=== PATIENT | female | born 1960 | race Hispanic/Latino ===

== ENCOUNTER 2018-07-29 13:00 | Outpatient (RCR) | payer OTHER ==
[~2018-07-29 13:00] MED LIST: ALPRAZOLAM0.25 M1 PO; ASPIRIN ENTERI325 MG PO; ATORVASTATIN CA20 MG PO; BENTYL10 MG PO; LANTUS100 UNITS/ SQ; LEVOTHYROXINE112 MCG PO; LYRICA75 MG PO; METFORMIN HCL500 MG PO; NEXIUM40 MG PO; ROPINIROLE HC0.25 MG PO; SERTRALINE HCL100 MG PO; TRADJENTA5 MG PO; ULTRAM50 MG PO
== END 2018-08-08 ==
LOC: PT 13:00
PROVIDERS: ATTEND Specialist
DX: M75.92 Shoulder lesion, unspecified, left shoulder (principal); M25.512 Pain in left shoulder; M25.412 Effusion, left shoulder; M54.2 Cervicalgia; M54.12 Radiculopathy, cervical region; M62.81 Muscle weakness (generalized)

== ENCOUNTER 2018-08-01 11:47 | Emergency (ER) | payer OTHER ==
[~2018-08-01] VITALS: Ht 157.5 cm; Wt 76.7 kg
--- OUTSIDE RECORDS SUMMARY | 2018-08-01 11:50 | XMS REPORT | Clinical Summary ---
Author Author [facility] Organization [facility] Address Unknown Phone Unavailable Care Team Providers Care Site Surveyor Name Role Phone Joey Clark MD PCP Allergies Not on File Medications Not on file Active Problems Not on file Social History Date Tobacco Use Types Packs/Day Years Used Never Assessed Sex Assigned at Date Recorded Not on file Industry Job Start Date Occupation Not on file Not on file Not on file Travel End Travel History Travel Start No recent travel history available. Last Filed Vital Signs Not on file Plan of Treatment Health Maintenance Due Date Last Done Comments CERVICAL CANCER SCREENING 1982 BREAST CANCER SCREENING 09/25/2011 COLON CANCER SCREENING 09/25/2011 SHINGLES VACCINES (#1) 09/25/2011 INFLUENZA VACCINE 01/09/2018 Results Not on fileafter 07/31/2017 Insurance Payer Benefit Subscriber ID Type Phone Address Plan / Group [employer] xxxxxxxxx [facility] Advance Directives Patient has advance care planning documents on file. For more information, pura fisher contact: Dima Lopez [address] [place] [phone]
--- OUTSIDE RECORDS SUMMARY | 2018-08-01 11:50 | XMS REPORT ---
Author Author Admin, Halliday Organization [facility] Address Unknown Phone Unavailable Allergies, Adverse Reactions, Alerts Allergy Name Reaction Description Start Date Severity Status Provider No Known Allergies Mason Jauregui DDS Conditions or Problems Problem Name Problem Code Onset Date Status Entry Date Provider Comment Standard Description Annotate No Known Problems Mason Jauregui DDS Medication List Medication Instructions Start Date Stop Date Generic Name NDC Status Provider Patient Instruction TYLENOL WITH CODEINE #3 300-30 MG ORAL TABLET 1 by mouth every 4 hours as needed ACETAMINOPHEN-CODEINE 26963687280 Active Mason Jauregui DDS Active TYLENOL WITH CODEINE #3 300-30 MG ORAL TABLET 1 by mouth every 4 hours as needed ACETAMINOPHEN-CODEINE 74344150398 Active Mason Jauregui DDS Active ALPRAZOLAM 0.5 MG ORAL TABLET ALPRAZOLAM 26799830947 Active Mason Jauregui DDS Active ASPIRIN 325 MG ORAL TBEC (ASPIRIN) 1 by mouth every day ASPIRIN 325 MG ORAL TBEC (ASPIRIN) Active Mason Jauregui DDS Active ATORVASTATIN CALCIUM 20 MG ORAL TABLET ATORVASTATIN CALCIUM 81655948244 Active Mason Jauregui DDS Active FENOFIBRATE 145 MG ORAL TABLET FENOFIBRATE 03780066234 Active Mason Jauregui DDS Active FUROSEMIDE 10 MG/ML ORAL SOLUTION FUROSEMIDE 73418500858 Active Mason Jauregui DDS Active HUMALOG HUMALOG Active Mason Jauregui DDS Active LANTUS 60 UNITS one tablet twice a day LANTUS 60 UNITS Active Mason Jauregui DDS Active LEVOTHYROXINE SODIUM 175 MCG ORAL TABLET LEVOTHYROXINE SODIUM 47851742187 Active Mason Jauregui DDS Active METFORMIN HCL 1000 MG ORAL TABLET METFORMIN HCL 96193490281 Active Mason Jauregui DDS Active METOCLOPRAMIDE HCL 10 MG ORAL TABLET DISINTEGRATING METOCLOPRAMIDE HCL 52775419876 Active Mason Jauregui DDS Active NEXIUM 40 MG ORAL CAPSULE DELAYED RELEASE 1 by mouth daily ESOMEPRAZOLE MAGNESIUM 53841800547 Active Mason Jauregui DDS Active PROAIR HFA AEROSOL SOLUTION ALBUTEROL SULFATE AERS 41626153882 Active Mason Jauregui DDS Active ROPINIROLE HCL 0.25 MG ORAL TABLET ROPINIROLE HCL 50733743285 Active Mason Jauregui DDS Active SERTRALINE HCL 100 MG ORAL TABLET SERTRALINE HCL 82450193530 Active Mason Jauregui DDS Active TRADJENTA 5 MG ORAL TABLET LINAGLIPTIN 56925874558 Active Mason Jauregui DDS Active AZITHROMYCIN 250 MG ORAL TABLET 2 tablets by mouth on day one then one tablet by mouth each day for a total of 5 days AZITHROMYCIN 45283613435 Active Mason Jauregui DDS Active BENZONATATE 100 MG ORAL CAPSULE BENZONATATE 35763999539 Active Mason Jauregui DDS Active PREDNISONE TABS 15MG (PREDNISONE TABS) PREDNISONE TABS 15MG (PREDNISONE TABS) Active Mason Jauregui DDS Active Vital Signs Date Name Value Unit Range Description blood pressure, diastolic 63 mm[Hg] BP richter blood pressure, systolic 126 mm[Hg] BP sys pulse rate E&M 98 /min Heart rate blood pressure, diastolic 65 mm[Hg] BP richter blood pressure, systolic 124 mm[Hg] BP sys pulse rate E&M 89 /min Heart rate blood pressure, diastolic 49 mm[Hg] BP richter blood pressure, systolic 110 mm[Hg] BP sys pulse rate E&M 98 /min Heart rate blood pressure, diastolic 65 mm[Hg] BP richter blood pressure, systolic 120 mm[Hg] BP sys pulse rate E&M 86 /min Heart rate blood pressure, diastolic 66 mm[Hg] BP richter blood pressure, systolic 123 mm[Hg] BP sys pulse rate E&M 98 /min Heart rate blood pressure, diastolic 72 mm[Hg] BP richter blood pressure, systolic 113 mm[Hg] BP sys pulse rate E&M 82 /min Heart rate blood pressure, diastolic 83 mm[Hg] BP richter blood pressure, systolic 115 mm[Hg] BP sys pulse rate E&M 68 /min Heart rate blood pressure, diastolic 68 mm[Hg] BP richter blood pressure, systolic 125 mm[Hg] BP sys pulse rate E&M 96 /min Heart rate
--- OUTSIDE RECORDS SUMMARY | 2018-08-01 11:50 | XMS REPORT | Clinical Summary ---
Author Author [facility] Organization [facility] Address Unknown Phone Unavailable Care Team Providers Care Counter Waitress/Waiter Name Role Phone PCP Unavailable Allergies Comments Active Allergy Reactions Severity Noted Date Iodinated Contrast- Oral Anaphylaxis, Medium 11/28/2006 And Iv Dye Rash Medications End Date Status Medication Sig Dispensed Refills Start Date Active ESOMEPRAZOLE MAGNESIUM Take 40 mg by 0 (NEXIUM OR) mouth 2 times daily. Active aspirin 325 mg tablet Take 325 mg 0 by mouth daily. Active levothyroxine (SYNTHROID) Take 175 mcg 0 175 mcg tablet by mouth daily. Active metFORMIN (GLUCOPHAGE) Take 1,000 mg 0 1,000 mg tablet by mouth 2 times daily (with meals). Active linagliptin (TRADJENTA) 5 Take 5 mg by 0 mg tablet mouth daily. Active insulin glargine (LANTUS) Inject 80 0 100 unit/mL injection Units under the skin at bedtime nightly. Active Insulin Lispro, Human, Inject 24 0 (HUMALOG) 100 unit/mL Units under Crtg the skin before meals. Active atorvastatin (LIPITOR) 20 Take 20 mg by 0 mg tablet mouth at bedtime nightly. Active fenofibrate Take 145 mg 0 nanocrystallized (TRICOR) by mouth 145 mg tablet daily. Active ROPINIRole (REQUIP) 0.25 Take 0.5 mg 0 mg tablet by mouth 2 times daily. Active metoclopramide (REGLAN) Take 10 mg by 0 10 mg tablet mouth 2 times daily. Active furosemide (LASIX) 20 mg Take 20 mg by 0 tablet mouth daily. Active albuterol (PROAIR HFA) 90 Inhale 2 0 mcg/actuation inhaler Puffs by mouth 4 times daily as needed for Wheezing. Active tiotropium (SPIRIVA) 18 Inhale 1 0 mcg inhalation capsule capsule by mouth daily. Active colestipol (COLESTID) 1 Take 1 tablet 0 gram Tab by mouth daily. Active busPIRone (BUSPAR) 5 mg Take 1 tablet 90 tablet 1 tabletIndications: by mouth 3 7 Persistent depressive times daily. disorder, Anxiety Active sertraline (ZOLOFT) 100 TAKE 2 60 tablet 0 mg tabletIndications: TABLETS BY 7 Persistent depressive MOUTH ONCE disorder DAILY--TOO SOON TILL 09/01 Active acetaminophen-codeine Take 1 tablet 24 tablet 0 (TYLENOL/CODEINE #3) by mouth 9 300-30 mg per every 4 hours tabletIndications: Acute as needed for pain of left shoulder Pain. Active naproxen (NAPROSYN) 500 Take 1 tablet 20 tablet 0 mg tabletIndications: by mouth 2 9 Acute pain of left times daily shoulder (with meals). Active cyclobenzaprine Take 1 tablet 24 tablet 0 (FLEXERIL) 10 mg by mouth 3 9 tabletIndications: Acute times daily pain of left shoulder as needed for Muscle Spasms. 11/30/2017 Discontinued hydrOXYzine (ATARAX) 10 Take 1 tablet 30 tablet 3 mg tabletIndications: by mouth 8 Pruritus nightly at bedtime as needed for up to 10 days for Itching. 02/28/2018 hydrOXYzine (ATARAX) 10 Take 1 tablet 30 tablet 2 mg tabletIndications: by mouth 8 Pruritus nightly at bedtime as needed for up to 90 days for Itching. 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 Office Visit Dermatology after 07/31/2017 Immunizations Name Dates Previously Given Next Due Depo-provera 150mg Inj 02/05/2008 Family History Medical History Relation Name Comments Diabetes Father Heart Father Hypertension Father Stroke Father Hypothyroid Other Relation Name Status Comments Father STROKE (Age 60@) Mother Alive Other Social History Date Tobacco Use Types Packs/Day Years Used Current Every Day Smoker 26 Comments: 3 CIGARETTES A DAY Alcohol Use Drinks/Week oz/Week Comments No Sex Assigned at Date Recorded Not on file Industry Job Start Date Occupation Not on file Not on file Not on file Travel End Travel History Travel Start No recent travel history available. Last Filed Vital Signs Time Taken Vital Sign Reading 06/29/2018 5:33 PM SLIDE MAKER Blood Pressure 150/97 06/29/2018 5:33 PM SLIDE MAKER Pulse 100 06/29/2018 5:33 PM SLIDE MAKER Temperature 36.7 C (98 F) 06/29/2018 5:33 PM SLIDE MAKER Respiratory Rate 18 06/29/2018 5:33 PM SLIDE MAKER Oxygen Saturation 99% - Inhaled Oxygen - Concentration 06/29/2018 1:23 PM SLIDE MAKER Weight 78.1 kg (172 lb 3.2 oz) - Height - 08/30/2016 11:24 AM CDT Body Mass Index 31.5 Plan of Treatment Health Maintenance Due Date Last Done Comments Cervical Cancer Scrn (3 1982 Yrs) Breast Cancer Scrn 04/22/2010 04/22/2009, 04/08/2007 (Yearly) Colorectal Cancer Scrn 09/25/2011 Annual (FIT/FOBT) Age 50 to 75 IMM Influenza Seasonal 03/11/2018Mar to August (>/=19 yrs) Procedures Comments Procedure Name Priority Date/Time Associated Diagnosis GLUCOSE POC Routine 06/29/2018 1:27 PM [facility]IDE MAKER HIV-1/HIV-2 ROUTINE Routine 11/30/2017 Pruritus SCREENING 11:56 AM CDT HEPATITIS PANEL Routine 11/30/2017 Pruritus 11:56 AM CDT COMPREHENSIVE METABOLIC Routine 11/30/2017 Pruritus PANEL(DBIL NOT INCLUDED) 11:56 AM CDT CBC/DIFF Routine 11/30/2017 Pruritus 11:56 AM CDT after 07/31/2017 Results * GLUCOSE POC (06/29/2018 1:27 PM SLIDE MAKER) Glucose POC 309 (H) 74 - 106 mg/dL [facility] 1 Performing Organization Address City/[facility] Phone [facility] 1 * HIV-1/HIV-2 ROUTINE SCREENING (11/30/2017 11:56 AM CDT) Pathologist [facility] HIV-1/HIV-2 Negative NEG [facility] 2 Performing Organization Address [facility] Number [facility] 2 * COMPREHENSIVE METABOLIC PANEL(DBIL NOT INCLUDED) (11/30/2017 11:56 AM CDT) Albumin 3.6 3.4 - 5.0 g/dL [facility] 2 Calcium 9.3 8.50 - 10.20 mg/dL [facility] 2 CO2 24 21 - 32 mmol/L [facility] 2 Chloride 105 98 - 107 mmol/L [facility] 2 Creatinine 0.81 0.60 - 1.30 mg/dL [facility] 2 Glucose 156 (H) 70 - 99 mg/dL [facility] 2 Alk Phos 166 (H) 45 - 117 U/L [facility] 2 Potassium 4.1 3.50 - 5.10 mmol/L [facility] 2 Sodium 138 136 - 145 mmol/L [facility] 2 ALT 93 (H) 12 - 78 U/L [facility] 2 AST 60 (H) 15 - 37 U/L [facility] 2 Urea Nitrogen 19 (H) 7 - 18 mg/dL [facility] 2 T Bilirubin 0.5 0.2 - 1.0 mg/dL [facility] 2 T Protein 7.6 6.4 - 8.2 g/dL [facility] 2 GFR, Estimated >60 mL/min/1.73 m2 [facility] 2 GFR, Estim, >60 mL/min/1.73 m2 [facility] Afr-Am MAIN-STATION 2 Anion Gap 9 [facility] 2 Specimen Blood Performing Organization Address [facility] Phone [facility] [place] [facility] 2 * HEPATITIS PANEL (11/30/2017 11:56 AM CDT) HCV IgG Negative [facility] MAIN-STATION 3 HBsAg Negative [facility] MAIN[facility] 3 HAV, IgM Negative [facility]IN[facility] 3 HBcAb, IgM Negative [facility] MAIN[facility] 3 Specimen Blood Performing Organization Address City/State/Zipcode Phone Number MISYS [facility]IN-[facility] 3 * CBC/DIFF (11/30/2017 11:56 AM CDT) WBC 7.3 4.5 - 11.0 K/uL [facility] 2 RBC 4.53 4.20 - 5.40 M/uL [facility] 2 Hemoglobin 13.3 12.0 - 16.0 g/dL [facility] 2 Hematocrit 40.5 37.0 - 47.0 % [facility] 2 MCV 89 82 - 92 fL [facility] 2 MCH 29.4 27.0 - 32.0 pg [facility] 2 MCHC 32.8 32.0 - 36.0 g/dL [facility] 2 RDW 43.2 36.4 - 46.3 fL [facility] 2 Platelet 207 150 - 400 K/uL [facility] 2 Mean Platelet 9.5 9.4 - 12.4 fL [facility] Volume [facility] 2 Percent NRBC 0.0 [facility] 2 Absolute NRBC 0.00 [facility] 2 Neutrophil 61.9 34.0 - 70.0 % [facility] 2 Lymphocyte 29.0 20.0 - 50.0 % [facility] 2 Monocyte 5.9 5.0 - 12.0 % [facility] 2 Eosinophil 2.2 0.7 - 5.0 % [facility] 2 Basophil 0.5 0.1 - 1.2 % [facility] 2 Pct Immat Gran 0.5 0.0 - 0.5 [facility] 2 Neutrophil, Abs 4.50 1.56 - 6.13 K/uL [facility] 2 Lymphocyte, Abs 2.11 1.18 - 3.74 K/uL [facility] 2 Monocyte, Abs 0.43 (H) 0.24 - 0.36 K/uL [facility] 2 Eosinophil, Abs 0.16 0.04 - 0.36 K/uL [facility] 2 Basophil, Abs 0.04 0.01 - 0.08 K/uL [facility] 2 Absol Immat 0.04 (H) 0.00 - 0.03 K/uL [facility] Gran MAIN-ST[facility] 2 Specimen Blood Performing Organization Address City/State/Zipcode Phone Number [place] [facility] 2 after 07/31/2017 Insurance Type Payer Benefit Subscriber ID Effective Phone Address Plan / Dates Group [facility] xxxxxxxxx 2016- [phone] COMMUNITY Present [id number] [place] [address] [facility] SELF-PAY [facility] xxxxxxxxx 2018- [phone] [place] [address] MundoJasmine brooks Personal/F Self [address] [place] (Home) [place] [address]
--- OUTSIDE RECORDS SUMMARY | 2018-08-01 11:50 | XMS REPORT ---
Author Author [facility] Address Unknown Phone Unavailable Care Team Providers Care Life Enrichment Specialist Name Role Phone WENDY STONEQAR Unavailable Unavailable DANDY NOLAN Unavailable Unavailable SWEET, A LAIRD Unavailable Unavailable Payers Payer Name Policy Type Policy Number Effective Date Expiration Date Problems This patient has no known problems. Allergies, Adverse Reactions, Alerts Allergy Name Allergy Type Status Severity Reaction(s) Onset Date Inactive Date Treating Clinician Comments No Known Allergies DA Active U 2018-06-25 00:00:00 No Known Allergies DA Active U 2018-01-30 00:00:00 Medications This patient has no known medications. Encounters Start Date/Time End Date/Time Encounter Type Admission Type Attending Clinicians Care Facility Care Department Encounter ID 2018-07-09 00:00:00 2018-07-09 00:00:00 Outpatient [facility] [id number] 2018-06-29 16:17:30 2018-06-29 16:17:30 Emergency [facility] [id number] 2018-02-01 00:00:00 2018-02-01 00:00:00 Outpatient [facility] [id number] 2017-11-30 11:48:42 2017-11-30 11:48:42 Outpatient [facility] [id number] 2017-11-30 10:01:56 2017-11-30 10:01:56 Outpatient [facility] [id number] Results Test Description Test Time Test Comments Text Results Atomic Results Result Comments U/S, ABDOMINAL, COMPLETE 2018-07-26 13:04:00 Referring: Dr. Jeannie NicolasReferring: Dr. Jeannie Farrell for Exam:->fatty liver, please do elastographyReearl for Exam:->fatty liver, please do elastography FINAL REPORT TECHNIQUE: Grayscale ultrasound of the abdomen with shear wave elastography assessment of liver tissue stiffness. INDICATION: fatty liver, please do elastography. COM PARISON: Ultrasound from 11/27/2016. FINDINGS: MIDLINE VASCULATURE: The visualized inferior vena cava is patent. Portal vein is patent. The maximum visualized aortic diameter is 2 cm. LIVER: Liver is diffusely increased in echogenicity. With no focal hepatic lesions. Elastography assessment of liver tissue stiffness reveals average shear wave velocity of 1.38 m/sec. Measured values of 1.33, 0.94, 1.12, and 2.03 were excluded because they included vessels. The main portal vein measures 1.1 cm. BILIARY:Gallbladder: Prior cholecystectomy.Common bile duct measures 0.5 cm, within normal limits. No int rahepatic biliary ductal dilatation. PANCREAS: Incompletely visualized due to overlying bowel gas. The partially visualized pancreatic neck and body are normal. SPLEEN: The spleen is mildly enlarged at 13.1 cm. PERITONEUM: No free fluid. KIDNEYS: Normal in size bilaterally. No hydronephrosis. No sonographically evident solid mass lesion. There is an anechoic region in the right interpolar kidney with some possible deep tendon calcifications which is indeterminate but similar to the prior examination and could be a calyceal diverticulum. IMPRESSION: 1.Diffuse fatty infiltration of the liver without fo augustin hepatic lesions. 2.Mild splenomegaly. 3.There is a possible right interpolar calyceal diverticulum. Elastography assessment is consistent with mild/moderate liver fibrosis classification (Metavir score F2-F3). Signed: Dallin Godoy MDReport Verified Date/Time: 07/26/2018 13:04:39 Reading Location: [address] Radiology Reading Room UE EXAM 2018-07-08 12:25:00 Surgical Pathology Report Case: [id number] Authorizing Provider: Anthony Stone MD Collected: 07/03/2018 0914 Ord ering Location: [facility] Received: 07/03/2018 1156 SERVICES Pathologist: Chandrika Pennington MD Specimens: A) - Biopsy, Gastric, BX R/O H PYLORI B) - Distal Esophagus, BX FOR REFLUX A. STOMACH, BIOPSIES: - CHRONIC INACTIVE GASTRITIS - CHEMICAL/REACTIVE GASTROPATHYB. ESOPHAGUS, DISTAL, BIOPSIES: - REFLUX ESOPHAGITIS Signing Pathologist Direct Phone Line: [phone] signed by Chandrika Pagan MD on 07/08/2018 at 12:25 [facility] [id number] [id number] pain, hemorrhoids, rule out H. Pylori. Reflux A. Gastric biopsy; B. Distal esophagusThe specimen is received in two containers of formalin both labeled with the patient's information. Part A labeled "gastric biopsy" consists of m ultiple fragments of mann-pink soft tissue ranging from less than 0.1 to 0.2 cm,submitted entirely A1. Part B labeled "distal esophagus biopsy" consists of four fragments of off white tissue ranging from 0.1 to 0.5 cm, submitted entirely B1. CG/pl A. Biopsies of the stomach have intestinal metaplasia and antral and oxyntic mucosa with mild increased chronic inflammatory cells in the lamina propria. No helicobacter pylori are seen on H&E or Warthin starry stains. No dysplasia or malignancy is seen.B. Biopsies of the distal esophagus have squamous epithelium with basal cell hyperplasia. No fungi, viral cytopathic effect, dysplasia or malignancy is seen.The interpretation of this case included the use of immunohistochemistry or special stains. Immunohistochemistry technical testing was performed at [facility], Pathology Laboratory where it was developed and its performance characteristics were determined. It has not been cleared or approved by the U.S. Food and Drug Admini stration. The FDA has determined that such clearance or approval is not necessary. The test is used for clinical purposes. It should not be regarded as investigational or for research. This laboratory is certified under the Clinical Laboratory Improvement Amendments of 1988 (CLIA-88) as qualified to perform high complexity clinical laboratory testing. BREAST ULTRASOUND BILATERAL 2018-07-05 08:32:59 - DIAG MAMM BILATERAL ALETHEA CAD DIGITALBILATERAL DIGITAL DIAGNOSTIC MAMMOGRAM 3D/2D WITH CAD: 07/04/2018CLINICAL: Follow up to previous exam. Digital breast tomosynthesis was performed in addition to routine CC and MLO views. Current mammographic images were evaluated by either a Bocandy M-Vu or a POTATOSOFT ImageChecker CAD (computer aided detection system). Comparison is made to exams dated 06/12/2017 mammogram - [facility], 11/20/2016 mammogram, and 10/23/2016 mammogram - [facility]. The tissue of both breasts is heterogeneously dense. This may lower the sensitivity of mammography. No suspicious mass, architectural distortion, malignant type calcification, or lymph node abnormality detected. INCOMPLETE ASSESSMENT: ADDITIONAL IMAGING EVALUATION RECOMMENDEDUltrasound pending for additional evaluation. Resume annual screening mammography in one year. - BREAST ULTRASOUND BILATERALULTRASOUND OF BOTH BREASTS AND BOTH AXILLA: 07/04/2018Comparison is made to exams dated mammogram - [facility] 11/20/2016 mammogram, and 10/23/2016 mammogram - [facility]. Real-time ultrasound of both breasts and both axilla was performed. No abnormalities were seen sonographically in either axilla. Benign cysts and dilated ducts were seen bilaterally. No solid masses were seen. Clinical breast exam was unremarkable. IMPRESSION: BENIGN There is no sonographic evidence of malignancy. Patient has been informed that she has areas of dense breast tissue that could make it difficult to find a small cancer. A screening mammogram and supplemental ultr asound for dense breast tissue is recommended in 1 year.Pauline Garay M.D. dm/:07/05/2018 08:32:59 Party Plan Sales Host/Hostess: Mireya Ross , [facility]LEletter sent: BIRADS 1-2 Combo FU Letter Mammogram BI-RADS: 0 Indeterminate Ultrasound BI-RADS: 2 Benign DIAG MAMM BILATERAL ALETHEA CAD DIGITAL 2018-07-05 08:32:59 - DIAG MAMM BILATERAL ALETHEA CAD DIGITALBILATERAL DIGITAL DIAGNOSTIC MAMMOGRAM 3D/2D WITH CAD: 07/04/2018CLINICAL: Follow up to previous exam. Digital breast tomosynthesis was performed in addition to routine CC and MLO views. Current mammographic images were evaluated by either a Secret RecipeP M-Vu or a POTATOSOFT ImageChecker CAD (computer aided detection system). Comparison is made to exams dated 06/12/2017 mammogram - [facility], 11/20/2016 mammogram, and 10/23/2016 mammogram - [facility]. The tissue of both breasts is heterogeneously dense. This may lower the sensitivity of mammography. No suspicious mass, architectural distortion, malignant type calcification, or lymph node abnormality detected. INCOMPLETE ASSESSMENT: ADDITIONAL IMAGING EVALUATION RECOMMENDEDUltrasound pending for additional evaluation. Resume annual screening mammography in one year. - BREAST ULTRASOUND BILATERALULTRASOUND OF BOTH BREASTS AND BOTH AXILLA: 07/04/2018Comparison is made to exams dated mammogram - [facility], 11/20/2016 mammogram, and 10/23/2016 mammogram - [facility]. Real-time ultrasound of both breasts and both axilla was performed. No abnormalities were seen sonographically in either axilla. Benign cysts and dilated ducts were seen bilaterally. No solid masses were seen. Clinical breast exam was unremarkable. IMPRESSION: BENIGN There is no sonographic evidence of malignancy. Patient has been informed that she has areas of dense breast tissue that could make it difficult to find a small cancer. A screening mammogram and supplemental ultr asound for dense breast tissue is recommended in 1 year.Pauline Garay M.D. dm/:07/05/2018 08:32:59 Party Plan Sales Host/Hostess: Mireya Ross , [facility] sent: BIRADS 1-2 Combo FU Letter Mammogram BI-RADS: 0 Indeterminate Ultrasound BI-RADS: 2 Benign POCT-GLUCOSE METER 2018-07-03 09:46:00 POC-GLUCOSE METER (BEAKER) (test mfvz=4282) 345 mg/dL 70-110 Notified BRENT EDWARDS/TESTED AT [place] [id number] [facility] [address] POCT-GLUCOSE [id number] 08:29:00* Test Item Value Reference Range Comments POC-GLUCOSE METER (BEAKER) (test qarm=6212) 355 mg/dL 70-110 TESTED AT [address] [address] BASIC METABOLIC [id number] 13:26:00* Test Item Value Reference Range Comments SODIUM (BEAKER) (test avkt=184) 138 meq/L 136-145 POTASSIUM (BEAKER) (test qtrv=707) 3.9 meq/L 3.5-5.1 Specimen slightly hemolyzed CHLORIDE (BEAKER) (test kssw=798) 106 meq/L 98-107 CO2 (BEAKER) (test ewrm=960) 15 meq/L 22-29 BLOOD UREA NITROGEN (BEAKER) (test gvzc=957) 7 mg/dL 7-21 CREATININE (BEAKER) (test fvry=444) 1.11 mg/dL 0.57-1.25 Specimen slightly hemolyzed GLUCOSE RANDOM (BEAKER) (test bujc=614) 458 mg/dL 70-105 CALCIUM (BEAKER) (test moix=292) 10.2 mg/dL 8.4-10.2 EGFR (BEAKER) (test bdpo=8687) 51 mL/min/1.73 sq m ESTIMATED GFR IS NOT ACCURATE CREATININE CLEARANCE IN PREDICTING GLOMERULAR FILTRATION RATE. ESTIMATED GFR IS NOT APPLICABLE FOR DIALYSIS PATIENTS. Specimen slightly ictericHEPATIC FUNCTION [id number] 13:05:00* Test Item Value Reference Range Comments TOTAL PROTEIN (BEAKER) (test rhgk=865) 8.0 gm/dL 6.0-8.3 Specimen slightly hemolyzed ALBUMIN (BEAKER) (test odkk=5630) 4.0 g/dL 3.5-5.0 Specimen slightly hemolyzed BILIRUBIN TOTAL (BEAKER) (test kofu=694) 0.6 mg/dL 0.2-1.2 Specimen slightly hemolyzed BILIRUBIN DIRECT (BEAKER) (test edzd=776) < mg/dL 0.1-0.5 Specimen slightly hemolyzed ALKALINE PHOSPHATASE (BEAKER) (test vnju=036) 182 U/L 40-150 AST (SGOT) (BEAKER) (test fgpf=008) 28 U/L 5-34 Specimen slightly hemolyzed ALT (SGPT) (BEAKER) (test xeuv=198) 38 U/L 6-55 Specimen slightly hemolyzed Specimen slightly ictericSpecimen markedly lipemicPROTHROMBIN TIME/[id number] 12:32:00* Test Item Value Reference Range Comments PROTIME (BEAKER) (test nbuo=180) 13.4 seconds 11.7-14.7 INR (BEAKER) (test xwll=118) 1.0 <=5.9 RECOMMENDED COUMADIN/WARFARIN INR THERAPY RANGESSTANDARD DOSE: 2.0 - 3.0 Inclu rocio: PROPHYLAXIS for venous thrombosis, systemic embolization; TREATMENT for melanie ous thrombosis and/or pulmonary embolus.HIGH RISK: Target INR is 2.5-3.5 for pat ients with mechanical heart valves.CBC W/PLT COUNT & AUTO [id number] 12:28:00* Test Item Value Reference Range Comments WHITE BLOOD CELL COUNT (BEAKER) (test rjqw=370) 6.4 K/ L 3.5-10.5 RED BLOOD CELL COUNT (BEAKER) (test ruys=893) 4.38 M/ L 3.93-5.22 HEMOGLOBIN (BEAKER) (test qoea=477) 13.2 GM/DL 11.2-15.7 HEMATOCRIT (BEAKER) (test cdii=348) 38.8 % 34.1-44.9 MEAN CORPUSCULAR VOLUME (BEAKER) (test vxgr=124) 88.6 fL 79.4-94.8 MEAN CORPUSCULAR HEMOGLOBIN (BEAKER) (test ajlb=506) 30.1 pg 25.6-32.2 MEAN CORPUSCULAR HEMOGLOBIN CONC (BEAKER) (test wcfv=920) 34.0 GM/DL 32.2-35.5 RED CELL DISTRIBUTION WIDTH (BEAKER) (test oenq=566) 13.6 % 11.7-14.4 PLATELET COUNT (BEAKER) (test cveb=507) 180 K/CU MM 150-450 MEAN PLATELET VOLUME (BEAKER) (test rdfk=856) 10.3 fL 9.4-12.3 NUCLEATED RED BLOOD CELLS (BEAKER) (test jdnc=637) 0 /100 WBC 0-0 NEUTROPHILS RELATIVE PERCENT (BEAKER) (test mqan=740) 67 % LYMPHOCYTES RELATIVE PERCENT (BEAKER) (test auzw=983) 26 % MONOCYTES RELATIVE PERCENT (BEAKER) (test aiuk=222) 4 % EOSINOPHILS RELATIVE PERCENT (BEAKER) (test jmbq=937) 1 % BASOPHILS RELATIVE PERCENT (BEAKER) (test jaxf=621) 1 % NEUTROPHILS ABSOLUTE COUNT (BEAKER) (test blqi=678) 4.31 K/ L 1.56-6.13 LYMPHOCYTES ABSOLUTE COUNT (BEAKER) (test xkrq=159) 1.64 K/ L 1.18-3.74 MONOCYTES ABSOLUTE COUNT (BEAKER) (test wmir=191) 0.28 K/ L 0.24-0.36 EOSINOPHILS ABSOLUTE COUNT (BEAKER) (test pflj=894) 0.07 K/ L 0.04-0.36 BASOPHILS ABSOLUTE COUNT (BEAKER) (test cpqh=786) 0.05 K/ L 0.01-0.08 IMMATURE GRANULOCYTES-RELATIVE PERCENT (BEAKER) (test pbne=3327) 1 % 0-1 POCT-GLUCOSE [id number] 13:50:00* Test Item Value Reference Range Comments POC-GLUCOSE METER (BEAKER) (test styl=8337) 227 mg/dL 70-110 TESTED AT [facility] [address] [facility] [address] ANTI-NUCLEAR ANTIBODY (BRIAN)2016-11-17 15:02:00* Test Item Value Reference Range Comments ANTI-NUCLEAR ANTIBODY (BRIAN) (BEAKER) (test qoas=428) Negative Negative HEPATITIS B SURFACE [id number] 18:55:00* Test Item Value Reference Range Comments HEPATITIS B SURFACE ANTIBODY (BEAKER) (test kvpd=205) 4314.9 mIU/mL <8.0 [id number] 18:17:00* Test Item Value Reference Range Comments FERRITIN (BEAKER) (test nvyn=068) 112 ng/mL 5-275 Effective 04/28/2014: Reference Range ChangeNew: Male 5-275 Previous: Male 22-322 Female 5-275 Female 10-291 BILIRUBIN, [id number] 17:57:00* Test Item Value Reference Range Comments BILIRUBIN DIRECT (BEAKER) (test yibr=284) < mg/dL 0.1-0.5 Specimen slightly hemolyzed Specimen markedly lipemicCOMPREHENSIVE METABOLIC [id number] 17:53:00* Test Item Value Reference Range Comments TOTAL PROTEIN (BEAKER) (test djjk=165) 8.9 gm/dL 6.0-8.3 Specimen slightly hemolyzed ALBUMIN (BEAKER) (test rsug=3849) 4.4 g/dL 3.5-5.0 Specimen slightly hemolyzed ALKALINE PHOSPHATASE (BEAKER) (test mcka=708) 141 U/L 40-150 BILIRUBIN TOTAL (BEAKER) (test dtpr=126) 0.5 mg/dL 0.2-1.2 Specimen slightly hemolyzed SODIUM (BEAKER) (test rfjy=554) 136 meq/L 136-145 POTASSIUM (BEAKER) (test ugik=785) 3.7 meq/L 3.5-5.1 Specimen slightly hemolyzed CHLORIDE (BEAKER) (test anpe=480) 104 meq/L 98-107 CO2 (BEAKER) (test zywm=479) 19 meq/L 22-29 BLOOD UREA NITROGEN (BEAKER) (test aysy=543) 14 mg/dL 7-21 CREATININE (BEAKER) (test lmqb=567) 1.32 mg/dL 0.57-1.25 Specimen slightly hemolyzed GLUCOSE RANDOM (BEAKER) (test vjpr=832) 206 mg/dL 70-105 CALCIUM (BEAKER) (test wnda=207) 9.8 mg/dL 8.4-10.2 AST (SGOT) (BEAKER) (test xeqd=423) 97 U/L 5-34 Specimen slightly hemolyzed ALT (SGPT) (BEAKER) (test fuum=643) 71 U/L 6-55 Specimen slightly hemolyzed EGFR (BEAKER) (test eris=6475) 42 mL/min/1.73 sq m ESTIMATED GFR IS NOT ACCURATE CREATININE CLEARANCE IN PREDICTING GLOMERULAR FILTRATION RATE. ESTIMATED GFR IS NOT APPLICABLE FOR DIALYSIS PATIENTS. Specimen markedly lipemicIRON, TIBC, % SAT. (WITHOUT FERRITIN)2016-11-15 17:48:00* Test Item Value Reference Range Comments IRON (BEAKER) (test blka=853) 88 ug/dL 40-160 TOTAL IRON BINDING CAPACITY (BEAKER) (test uyjs=302) 429 ug/dL 250-450 IRON % SATURATION (2) (BEAKER) (test lpdx=0182) 21 % 20-55 CBC W/PLT COUNT & AUTO [id number] 17:12:00* Test Item Value Reference Range Comments WHITE BLOOD CELL COUNT (BEAKER) (test yopv=935) 7.0 K/ L 4.0-10.0 RED BLOOD CELL COUNT (BEAKER) (test csod=085) 4.38 M/ L 4.00-5.00 HEMOGLOBIN (BEAKER) (test peie=755) 13.3 GM/DL 12.0-15.0 HEMATOCRIT (BEAKER) (test zaph=528) 38.1 % 36.0-45.0 MEAN CORPUSCULAR VOLUME (BEAKER) (test citl=181) 87.0 fL 82.0-99.0 MEAN CORPUSCULAR HEMOGLOBIN (BEAKER) (test ptqq=098) 30.5 pg 27.0-33.0 MEAN CORPUSCULAR HEMOGLOBIN CONC (BEAKER) (test dbdq=773) 35.0 GM/DL 32.0-36.0 RED CELL DISTRIBUTION WIDTH (BEAKER) (test ozlt=498) 15.2 % 10.3-14.2 PLATELET COUNT (BEAKER) (test ckbg=403) 232 K/CU MM 150-430 MEAN PLATELET VOLUME (BEAKER) (test sarx=013) 7.2 fL 6.5-10.5 NUCLEATED RED BLOOD CELLS (BEAKER) (test pqcf=034) 0 /100 WBC 0-0 NEUTROPHILS RELATIVE PERCENT (BEAKER) (test hxge=994) 69 % LYMPHOCYTES RELATIVE PERCENT (BEAKER) (test cfrz=457) 25 % MONOCYTES RELATIVE PERCENT (BEAKER) (test notn=736) 4 % EOSINOPHILS RELATIVE PERCENT (BEAKER) (test pyje=542) 1 % BASOPHILS RELATIVE PERCENT (BEAKER) (test utdy=608) 1 % NEUTROPHILS ABSOLUTE COUNT (BEAKER) (test ubbu=378) 4.87 K/ L 1.80-8.00 LYMPHOCYTES ABSOLUTE COUNT (BEAKER) (test jpzw=542) 1.73 K/ L 1.48-4.50 MONOCYTES ABSOLUTE COUNT (BEAKER) (test puqc=910) 0.29 K/ L 0.00-1.30 EOSINOPHILS ABSOLUTE COUNT (BEAKER) (test bxeu=279) 0.07 K/ L 0.00-0.50 BASOPHILS ABSOLUTE COUNT (BEAKER) (test tjpl=363) 0.08 K/ L 0.00-0.20 0.00CT BRAIN WO [facility] [address] [place] [address] Patient Name: NAZIA MAN MR #: [id number] : 1960 Age/Sex: 56/F Req #: [id number] Adm Physician: Ordered by: ALESIA WILLARD MD Report #: [id number] Location: ER Room/Bed: Procedure: [id number] CT/CT BRAIN WO Exam Yonatan e: 03/06/17 Exam Time: 2154 REPORT STATUS: Sign ed Exam: Head CT without contrast History: Dizziness, headache, Compariso n studies: None Technique: Axial images were obtained from the skull bas e to the vertex. Coronal and sagittal images reconstructed from the axial data . Intravenous contrast: None Findings: Scalp: No abnormalities. Colton sunshine: No fractures, blastic or lytic lesions. Brain sulci: Appropriate for a ge. Ventricles: Normal in size and configuration. No hydrocephalus. Extra-ax ial spaces: No masses, no fluid collection. Parenchyma: No abnormal den sities. No masses, acute hemorrhage, acute or chronic vascular insults. Sellar/suprasellar region: No abnormalities. Craniocervical junction: Patent f oramen magnum. No Chiari one malformation. IMPRESSION: No abnormal ities. Signed by: Dr. Liv Cavanaugh M.D. on 03/06/2017 10:41 PM Dict ated By: LIV CAVANAUGH MD 40 COPY TO: PHILIP WILLARD MD
--- OUTSIDE RECORDS SUMMARY | 2018-08-01 11:50 | XMS REPORT | Clinical Summary ---
Author Author [facility] Address Unknown Phone Unavailable Care Team Providers Care Psychological Science Professor Name Role Phone Joey Clark MD PCP Allergies No Known Allergies Medications End Date Status Medication Sig Dispensed Refills Start Date Active sertraline (ZOLOFT) 100 Take 200 mg 0 MG tablet by mouth daily . Active ezetimibe-simvastatin Take 1 tablet 0 (VYTORIN) 10-40 mg per by mouth tablet nightly. Active metFORMIN (GLUCOPHAGE) Take 1,000 mg 0 1000 MG tablet by mouth 2 (two) times daily with breakfast and dinner. Active calcium carbonate Take 600 mg 0 (OS-WINNIE) 600 mg (1,500 by mouth 2 mg) Tab (two) times daily with breakfast and dinner. Active mirabegron (MYRBETRIQ) 50 Take 50 mg by 0 mg Tb24 mouth daily. Active levothyroxine (SYNTHROID, Take 200 mcg 0 LEVOTHROID) 200 MCG by mouth tabletIndications: Every morning Abnormal liver enzymes on an empty stomach. Active INSULIN Inject 0 GLARGINE,HUM.REC.ANLOG subcutaneousl (TOUJEO SOLOSTAR y nightly 40 SUBQ)Indications: units am, 80 Abnormal liver enzymes units at night. Active aspirin 325 MG EC Take 325 mg 0 tabletIndications: by mouth Abnormal liver enzymes daily. Active insulin lispro (HUMALOG) Inject 50 0 100 unit/mL Units InPnIndications: Abnormal subcutaneousl liver enzymes y 3 (three) times daily with meals . Active albuterol (PROVENTIL) 2.5 Take 2.5 mg 0 mg/0.5 mL Nebu nebulizer by solutionIndications: nebulization Abnormal liver enzymes every 6 (six) hours as needed. Active tiotropium (SPIRIVA) 18 Inhale 18 mcg 0 mcg inhalation by mouth via capsuleIndications: inhaler Abnormal liver enzymes daily. Active esomeprazole (NEXIUM) 40 Take 40 mg by 0 MG capsuleIndications: mouth daily. Abnormal liver enzymes Active rOPINIRole (REQUIP) 0.5 Take 0.5 mg 0 MG tabletIndications: by mouth Abnormal liver enzymes nightly. Active metoclopramide HCl Take 10 mg by 0 (REGLAN) 10 MG mouth 2 (two) tabletIndications: times daily. Abnormal liver enzymes Active albuterol HFA (VENTOLIN Inhale 1 puff 0 HFA) 90 mcg/actuation by mouth via inhalerIndications: inhaler every Abnormal liver enzymes 6 (six) hours as needed for Wheezing. Active furosemide (LASIX) 20 MG Take 20 mg by 0 tabletIndications: mouth 2 (two) Abnormal liver enzymes times daily. Active HYOSCYAMINE ORAL Take 1 tablet 0 by mouth daily as needed . Active zonisamide (ZONEGRAN) 50 Take 100 mg 0 MG capsuleIndications: by mouth restless leg syndrome daily . 10/12/2017 Discontinued levothyroxine (SYNTHROID, Take 150 mcg 0 LEVOTHROID) 150 MCG by mouth tablet daily. 10/12/2017 Discontinued glipiZIDE (GLUCOTROL) 5 Take 5 mg by 0 MG tablet mouth 2 (two) times daily before meals. 10/12/2017 Discontinued linagliptin 5 mg Tab Take 5 mg by 0 mouth daily. 10/12/2017 Discontinued ondansetron (ZOFRAN) 4 MG Take 4 mg by 0 tablet mouth 2 (two) times daily as needed for Nausea. 10/12/2017 Discontinued sucralfate (CARAFATE) 1 Take 1 g by 0 gram tabletIndications: mouth 3 Abnormal liver enzymes (three) times daily. 02/19/2018 Discontinued carvedilol (COREG) 6.25 Take 6.25 mg 0 MG tablet by mouth 2 (two) times daily with breakfast and dinner. 02/19/2018 Discontinued dicyclomine (BENTYL) 10 Take 10 mg by 0 MG capsule mouth daily. 02/19/2018 Discontinued fluticasone (FLONASE) 50 1 spray by 0 mcg/actuation nasal spray Nasal route daily. 02/19/2018 Discontinued POTASSIUM ORAL Take by 0 mouth. Active Problems Problem Noted Date Fatty liver disease, nonalcoholic 11/17/2016 Last Assessment & Plan: She has multiple risk factors for fatty liver disease including diabetes, obesity, and hyperlipidemia. I recommend aggressive management of all three. Currently her diabetes is uncontrolled with a HgbA1c of 9 and her cholesterol is uncontrolled with a triglycerides over 800. We discussed the importance of lifestyle changes to help decrease/prevent damage from fatty liver disease. obesity 11/17/2016 Last Assessment & Plan: Body mass index is 32.63 kg/(m^2). We discussed the importance of weight loss with a low carbohydrate, high protein diet. She reports she only eats vegetables and protein - I think she would benefit from dietary consultation. Abnormal liver enzymes 11/17/2016 Last Assessment & Plan: She has a history of slightly elevated liver enzymes dating back to 2002. The likely etiology of her liver disease is fatty liver disease but blood work has been ordered to evaluate for metabolic, autoimmune, genetic and viral causes of liver disease. I have ordered an ultrasound to evaluate for fibrosis. Altered mental status 11/17/2016 Last Assessment & Plan: She says she was hospitalized in October 2016 at [facility] for hepatic encephalopathy. Based on the current information, she has no history of cirrhosis or portal hypertension. We have ordered updated imaging to assess further. Her AMS may have been related to infection or to TIAs if there is no evidence of portal hypertension. Screening for endocrine/metabolic/immunity disorders 11/17/2016 Last Assessment & Plan: All patients with chronic liver disease, regardless of etiology, should be immunized to prevent hepatitis A and hepatitis B if they are not already immune. She is immune to hepatitis A and hepatitis B. Encounters Care Team Description Date Type Specialty Pamela Liz MD Abnormal liver diagnostic imaging 07/26/2018 Hospital Radiology Encounter Steff Barksdale RN Abnormal liver enzymes (Primary Dx) 07/25/2018 Orders Only Hepatology Daxa Harkins RN Abnormal liver diagnostic imaging (Primary Dx) 07/25/2018 Orders Only Hepatology Pamela Liz MD Abnormal liver diagnostic imaging 07/15/2018 Hospital Radiology Encounter Pamela Liz MD 07/12/2018 Outside Orders Radiology Anthony Meadows MD UPPER ENDOSCOPY,BIOPSY 07/03/2018 Surgery Deb Matt MD 07/03/2018 Anesthesia Event Anthony Meadows MD 07/03/2018 Hospital Encounter Resource, [facility] Preadmit Phone 07/02/2018 Hospital Pre-Admission Testing Encounter Pamela Liz MD Hall, Sophia Marie, NP Fatty liver disease, nonalcoholic (Primary Dx); obesity; Abnormal liver enzymes; Screening for endocrine/metabolic/immunity disorders; Abnormal liver diagnostic imaging 01/30/2018 Office Visit Hepatology Daxa Harkins RN Results 01/30/2018 Telephone Hepatology Resource, [facility] Preadmit Phone 01/15/2018 Hospital Pre-Admission Testing Encounter Jayleen Gonzalezter 10/29/2017 Anesthesia Event Anthony Meadows MD UPPER ENDOSCOPY 10/29/2017 Surgery Anthony Meadows MD 10/29/2017 Hospital Encounter Resource, [facility] Preadmit Phone 10/12/2017 Hospital Pre-Admission Testing Encounter Steff Barksdale RN Lab result 2017 Telephone Hepatology Steff Barksdale RN Abnormal liver enzymes (Primary Dx) 2017 Orders Only Hepatology Steff Barksdale RN Lab Results 09/21/2017 Telephone Hepatology after 07/31/2017 Family History Medical History Relation Name Comments Diabetes Brother Hypertension Father Diabetes Mother Diabetes Sister Thyroid disease Sister Relation Name Status Comments Brother Alive Father Mother Alive Sister Alive Social History Date Tobacco Use Types Packs/Day Years Used Quit: 2013 Former Smoker 25 Smokeless Tobacco: Never Used Comments: 3 PPD only over last 3 yrs of smoking Alcohol Use Drinks/Week oz/Week Comments No Sex Assigned at Date Recorded Not on file Industry Job Start Date Occupation Not on file Not on file Not on file Travel End Travel History Travel Start No recent travel history available. Last Filed Vital Signs Time Taken Vital Sign Reading 07/03/2018 10:16 AM INSURANCE RATER Blood Pressure 133/72 07/03/2018 10:20 AM INSURANCE RATER Pulse 80 07/03/2018 9:35 AM INSURANCE RATER Temperature 36.7 C (98.1 F) 07/03/2018 10:20 AM INSURANCE RATER Respiratory Rate 24 07/03/2018 10:20 AM INSURANCE RATER Oxygen Saturation 98% - Inhaled Oxygen - Concentration 07/03/2018 8:18 AM INSURANCE RATER Weight 76.2 kg (168 lb) 07/03/2018 8:18 AM INSURANCE RATER Height 157.5 cm (5' 2") 07/03/2018 8:18 AM INSURANCE RATER Body Mass Index 30.73 Plan of Treatment Care Team Description Date Type Specialty Pamela Liz MD [address] [facility] [address] [place] [address] [phone] Resource, [facility] F 08/02/2018 Office Visit Hepatology Health Maintenance Due Date Last Done Comments INFLUENZA VACCINE 03/11/2018 Procedures Comments Procedure Name Priority Date/Time Associated Diagnosis US ABDOMEN COMPLETE Routine 07/26/2018 Abnormal liver diagnostic 9:14 AM INSURANCE RATER imaging POCT-GLUCOSE METER Routine 07/03/2018 9:43 AM INSURANCE RATER REPORT OF PROCEDURE - 07/03/2018 ENDOSCOPY URL 9:35 AM INSURANCE RATER REPORT OF PROCEDURE - 07/03/2018 ENDOSCOPY URL 9:33 AM INSURANCE RATER SIGMOIDOSCOPY 07/03/2018 Abdominal pain, 9:30 AM INSURANCE RATER epigastric Hemorrhoids, unspecified hemorrhoid type UPPER ENDOSCOPY,BIOPSY 07/03/2018 Abdominal pain, 9:30 AM INSURANCE RATER epigastric Hemorrhoids, unspecified hemorrhoid type TISSUE EXAM AP Routine 07/03/2018 9:14 AM INSURANCE RATER POCT-GLUCOSE METER Routine 07/03/2018 8:27 AM INSURANCE RATER CBC W/PLT COUNT & AUTO Routine 01/30/2018 Fatty liver disease, DIFFERENTIAL 11:52 AM CDT nonalcoholic PROTHROMBIN TIME/INR Routine 01/30/2018 Fatty liver disease, 11:52 AM CDT nonalcoholic CBC W/PLT COUNT & AUTO Routine 01/30/2018 Fatty liver disease, DIFFERENTIAL 11:52 AM CDT nonalcoholic HEPATIC FUNCTION PANEL Routine 01/30/2018 Fatty liver disease, 11:52 AM CDT nonalcoholic BASIC METABOLIC PANEL (7) Routine 01/30/2018 Fatty liver disease, 11:52 AM CDT nonalcoholic CBC W/PLT COUNT & AUTO Routine 11/30/2017 Fatty liver disease, DIFFERENTIAL 3:26 PM CDT nonalcoholic Abnormal liver enzymes HEPATIC FUNCTION PANEL Routine 11/30/2017 Fatty liver disease, 3:26 PM CDT nonalcoholic Abnormal liver enzymes BASIC METABOLIC PANEL (7) Routine 11/30/2017 Fatty liver disease, 3:26 PM CDT nonalcoholic Abnormal liver enzymes REPORT OF PROCEDURE - 10/29/2017 ENDOSCOPY URL 2:19 PM CDT UPPER ENDOSCOPY 10/29/2017 Epigastric pain 2:00 PM CDT POCT-GLUCOSE METER Routine 10/29/2017 1:47 PM CDT CBC W/PLT COUNT & AUTO Routine 08/23/2017 Fatty liver disease, DIFFERENTIAL 10:40 AM CDT nonalcoholic Abnormal liver enzymes HEPATIC FUNCTION PANEL Routine 08/23/2017 Fatty liver disease, 10:40 AM CDT nonalcoholic Abnormal liver enzymes BASIC METABOLIC PANEL (7) Routine 08/23/2017 Fatty liver disease, 10:40 AM CDT nonalcoholic Abnormal liver enzymes after 07/31/2017 Results * US abdomen complete (07/26/2018 9:14 AM INSURANCE RATER) Narrative Performed At FINAL REPORT [facility] TECHNIQUE: Grayscale ultrasound of the abdomen with shear wave elastography assessment of liver tissue stiffness. INDICATION: fatty liver, please do elastography. COMPARISON: Ultrasound from 11/27/2016. FINDINGS: MIDLINE VASCULATURE: The [...] The main portal vein measures 1.1 cm. BILIARY: Gallbladder: Prior cholecystectomy. Common bile duct measures 0.5 cm, within normal limits.No intrahepatic biliary ductal dilatation. PANCREAS: Incompletely visualized due [...] 1.Diffuse fatty infiltration of the liver without focal hepatic lesions. 2.Mild splenomegaly. 3.There is a possible right interpolar calyceal diverticulum. Elastography assessment is consistent with mild/moderate liver fibrosis classification (Metavir score F2-F3). Signed: Dallin Godoy MD Report Verified Date/Time:07/26/2018 13:04:39 Reading Location: [address] Radiology Reading Room Procedure Note Interface, External Ris In - 07/26/2018 1:06 PM INSURANCE RATER FINAL REPORT TECHNIQUE: Grayscale ultrasound of the abdomen with shear wave elastography assessment of liver tissue stiffness. INDICATION: fatty liver, please do elastography. COMPARISON: Ultrasound from 11/27/2016. FINDINGS: MIDLINE VASCULATURE: The [...] The main portal vein measures 1.1 cm. BILIARY: Gallbladder: Prior cholecystectomy. Common bile duct measures 0.5 cm, within normal limits. No intrahepatic biliary ductal dilatation. PANCREAS: Incompletely visualized due [...] 1.Diffuse fatty infiltration of the liver without focal hepatic lesions. 2.Mild splenomegaly. 3.There is a possible right interpolar calyceal diverticulum. Elastography assessment is consistent with mild/moderate liver fibrosis classification (Metavir score F2-F3). Signed: Dallin Godoy MD Report Verified Date/Time: 07/26/2018 13:04:39 Reading Location: [address] Radiology Reading Room Performing Organization Address City/State/Zipcode Phone Number [facility] * POC-Glucose meter (07/03/2018 9:43 AM INSURANCE RATER) Only the most recent of 3 results within the time period is included. POC-Glucose Meter 345 (H)Comment: Notified RN 70 - 110 mg/dL [facility] /TESTED AT [facility] [address] [facility] [place] [address] Specimen Blood Performing Organization Address City/State/Zipcode Phone Number [facility] [address] [place] [address] [facility] * REPORT OF PROCEDURE - ENDOSCOPY URL (07/03/2018 9:35 AM INSURANCE RATER) Narrative Performed At * REPORT OF PROCEDURE - ENDOSCOPY URL (07/03/2018 9:33 AM INSURANCE RATER) Narrative Performed At * Tissue Exam (07/03/2018 9:14 AM INSURANCE RATER) Case Report Surgical Pathology [facility] Report [facility] Case: [id number] Authorizing Provider:Anthony Meadows MD Collected: 07/03/2018 0914 Ordering Location: [facility] ENDOSCOPY Received: 07/03/2018 1156 SERVICES Pathologist: Chandrika Pennington MD Specimens: A) - Biopsy, Gastric, BX R/O H PYLORI B) - Distal Esophagus, BX FOR REFLUX DIAGNOSIS A. STOMACH, BIOPSIES: [facility] - CHRONIC INACTIVE GASTRITIS [facility] - CHEMICAL/REACTIVE GASTROPATHY B. ESOPHAGUS, DISTAL, BIOPSIES: - REFLUX ESOPHAGITIS Signing Pathologist Direct Phone Line: [phone] CPT Code(s) Sj/ew [facility] [address] x2 [facility] [address] CLINICAL HISTORY Abdominal pain, hemorrhoids, [facility] rule out H. Pylori. Reflux [facility] SPECIMEN SOURCE A. Gastric biopsy; B. Distal [facility] esophagus [facility] GROSS DESCRIPTION The specimen is received in [facility] two containers of formalin [facility] both labeled with the patient's information. Part A labeled "gastric biopsy" consists of multiple fragments of mann-pink soft tissue ranging from less than 0.1 to 0.2 cm,submitted entirely A1. Part B labeled "distal esophagus biopsy" consists of four fragments of off white tissue ranging from 0.1 to 0.5 cm, submitted entirely B1. CG/pl MICROSCOPIC DESCRIPTION A. Biopsies of the stomach [facility] have intestinal metaplasia and [facility] antral and oxyntic mucosa with mild increased chronic inflammatory cells in the lamina propria. No helicobacter pylori are seen on H&E or Warthin starry stains. No dysplasia or malignancy is seen. B. Biopsies of the distal esophagus have squamous epithelium with basal cell hyperplasia. No fungi, viral cytopathic effect, dysplasia or malignancy is seen. SPECIAL STUDIES The interpretation of this [facility] case included the use of [facility] immunohistochemistry or special stains. Immunohistochemistry technical testing was performed at [facility], Pathology Laboratory where it was developed and its performance characteristics were determined. It has not been cleared or approved by the U.S. Food and Drug Administration. The FDA has determined that such clearance or approval is not necessary. The test is used for clinical purposes. It should not be regarded as investigational or for research. This laboratory is certified under the Clinical Laboratory Improvement Amendments of 1988 (CLIA-88) as qualified to perform high complexity clinical laboratory testing. Specimen Tissue - Biopsy, Gastric Performing Organization Address City/State/Zipcode Phone Number [facility] [address] [place] [address] [facility] * CBC with platelet count + automated diff (01/30/2018 11:52 AM CDT) WBC 6.4 3.5 - 10.5 K/L [facility] RBC 4.38 3.93 - 5.22 M/L [facility] Hemoglobin 13.2 11.2 - 15.7 GM/DL [facility] Hematocrit 38.8 34.1 - 44.9 % [facility] MCV 88.6 79.4 - 94.8 fL [facility] MCH 30.1 25.6 - 32.2 pg [facility] MCHC 34.0 32.2 - 35.5 GM/DL [facility] RDW 13.6 11.7 - 14.4 % [facility] Platelets 180 150 - 450 K/CU MM [facility] MPV 10.3 9.4 - 12.3 fL [facility] nRBC 0 0 - 0 /100 WBC [facility] % Neutros 67 % [facility] % Lymphs 26 % [facility] % Monos 4 % [facility] % Eos 1 % [facility] % Baso 1 % [facility] # Neutros 4.31 1.56 - 6.13 K/L [facility] # Lymphs 1.64 1.18 - 3.74 K/L [facility] # Monos 0.28 0.24 - 0.36 K/L [facility] # Eos 0.07 0.04 - 0.36 K/L [facility] # Baso 0.05 0.01 - 0.08 K/L [facility] Immature 1 0 - 1 % [facility] Granulocytes-Relative [facility] Specimen Blood Performing Organization Address City/State/Zipcode Phone Number [facility] [address] [place] [address] [facility] * Pro-time/INR (01/30/2018 11:52 AM CDT) Protime 13.4 11.7 - 14.7 seconds [facility] INR 1.0 <=5.9 [facility] Specimen Blood Narrative Performed At RECOMMENDED COUMADIN/WARFARIN INR THERAPY RANGES [facility] STANDARD DOSE: 2.0 - 3.0 Includes: PROPHYLAXIS for venous thrombosis, [facility] systemic embolization; TREATMENT for venous thrombosis and/or pulmonary embolus. HIGH RISK: Target INR is 2.5-3.5 for patients with mechanical heart valves. Performing Organization Address City/[facility] Phone Number [facility] [address] [place] [address] [facility] * Hepatic function panel (01/30/2018 11:52 AM CDT) Only the most recent of 3 results within the time period is included. Protein, Total 8.0Comment: Specimen slightly 6.0 - 8.3 gm/dL [facility] Albumin 4.0Comment: Specimen slightly 3.5 - 5.0 g/dL [facility] Total Bilirubin 0.6Comment: Specimen slightly 0.2 - 1.2 mg/dL [facility] Bilirubin, Direct <0.1 (L)Comment: Specimen 0.1 - 0.5 mg/dL [facility] slightly hemolyzed [facility] Alkaline Phosphatase 182 (H) 40 - 150 U/L [facility] AST 28Comment: Specimen slightly 5 - 34 [facility] ALT 38Comment: Specimen slightly 6 - 55 U/L [facility] Specimen Blood Narrative Performed At Specimen slightly icteric [facility] Specimen markedly lipemic [facility] Performing Organization Address City/[facility] Phone Number [facility] [address] [place] [address] [facility] * Basic Metabolic Panel (01/30/2018 11:52 AM CDT) Only the most recent of 3 results within the time period is included. Sodium 138 136 - 145 meq/L [facility] Potassium 3.9Comment: Specimen slightly 3.5 - 5.1 meq/L [facility] Chloride 106 98 - 107 meq/L [facility] CO2 15 (L) 22 - 29 meq/L [facility] BUN 7 7 - 21 mg/dL [facility] Creatinine 1.11Comment: Specimen slightly 0.57 - 1.25 mg/dL [facility] Glucose 458 (HH) 70 - 105 mg/dL [facility] Calcium 10.2 8.4 - 10.2 mg/dL [facility] EGFR 51Comment: ESTIMATED GFR IS mL/min/1.73 sq m [facility] NOT ACCURATE CREATININE [facility] CLEARANCE IN PREDICTING GLOMERULAR FILTRATION RATE. ESTIMATED GFR IS NOT APPLICABLE FOR DIALYSIS PATIENTS. Specimen Blood Narrative Performed At Specimen slightly icteric [facility] Performing Organization Address City/State/Zipcode Phone Number [facility] [address] [place] [address] [facility] * CBC with platelet count + automated diff (11/30/2017 3:26 PM CDT) Only the most recent of 2 results within the time period is included. WBC 6.2 3.4 - 10.8 x10E3/uL [facility] 1 RBC 4.36 3.77 - 5.28 x10E6/uL [facility] 1 Hemoglobin 12.6 11.1 - 15.9 g/dL [facility] 1 Hematocrit 38.8 34.0 - 46.6 % [facility] 1 MCV 89 79 - 97 fL [facility] 1 MCH 28.9 26.6 - 33.0 pg [facility] 1 MCHC 32.5 31.5 - 35.7 g/dL [facility] 1 RDW 14.1 12.3 - 15.4 % [facility] 1 Platelets 196 150 - 379 x10E3/uL [facility] 1 % Neutros 69 Not Estab. % [facility] 1 % Lymphs 25 Not Estab. % [facility] 1 % Monos 4 Not Estab. % [facility] 1 % Eos 2 Not Estab. % [facility] 1 % Baso 0 Not Estab. % [facility] # Neutros 4.3 1.4 - 7.0 x10E3/uL [facility] # Lymphs 1.6 0.7 - 3.1 x10E3/uL [facility] # Monos 0.2 0.1 - 0.9 x10E3/uL [facility] # Eos 0.1 0.0 - 0.4 x10E3/uL [facility] 1 Baso (Absolute) 0.0 0.0 - 0.2 x10E3/uL [facility] % Immature Grans 0 Not Estab. % [facility] 1 # Immature Grans 0.0 0.0 - 0.1 x10E3/uL [facility] 1 Specimen Blood Narrative Performed At Performed at: [facility] [address] [place], [id number] Assistant Professor Of Geography: Mannie Chambers MD, Phone:[phone] Performing Organization Address City/State/Zipcode Phone Number [facility] * REPORT OF PROCEDURE - ENDOSCOPY URL (10/29/2017 2:19 PM CDT) Narrative Performed At after 07/31/2017 Insurance Payer Benefit Subscriber ID Type Phone Address Plan / Group MEDICAID - MEDICAID MGD [facility] xxxxxxxxx Medicaid CARE COMM STAR Contracted PLAN Advance Directives Patient has advance care planning documents on file. For more information, pura fisher contact: [facility] [address] [place] [address]
[2018-08-01] MEDS ORDERED: SODIUM CHLORIDE 0.9% 1000ML 1,000 ML IV STA (12:39)
[2018-08-01] MEDS ORDERED: ONDANSETRON HCL INJ 2MG/ML 2ML 2 MG/ML VIAL IV NR (12:45)
[2018-08-01] MEDS ORDERED: MORPHINE SULFATE INJ 4 MG/ML INJ 1ML IV NR (12:45)
[2018-08-01 14:06] LABS: CLARITY,URINE CLEAR (CLEAR); COLOR,URINE YELLOW (YELLOW); LEUKOCYTE ESTERASE ,URINE NEGATIVE (NEGATIVE)
[2018-08-01 14:07] LABS: BILIRUBIN,URINE NEGATIVE (NEGATIVE); KETONES,URINE NEGATIVE (NEGATIVE); NITRITE,URINE NEGATIVE (NEGATIVE); PROTEIN,URINE DIPSTICK NEGATIVE (NEGATIVE); URINE UROBILINOGEN 0.2 mg/dL (0.2 - 1)
--- NOTE | 2018-08-01 14:08 | Diagnostic Imaging Report ---
EXAMINATION: CT of the abdomen and pelvis without contrast. TECHNIQUE: Spiral CT images of the abdomen and pelvis were performed from the lung bases to the lesser trochanters. No intravenous contrast was given per renal stone protocol. Coronal and sagittal reformatted images were obtained. COMPARISON: None. CLINICAL HISTORY:Abdominal pain DISCUSSION: ABSENCE OF INTRAVENOUS CONTRAST DECREASES SENSITIVITY FOR DETECTION OF FOCAL LESIONS AND VASCULAR PATHOLOGY. ABDOMEN/PELVIS: LOWER THORAX: Unremarkable. HEPATOBILIARY:Scattered calcified granulomata. Otherwise no focal hepatic lesion. No intrahepatic biliary ductal dilatation. The gallbladder has been removed. Metallic clips in the gallbladder fossa. SPLEEN: No splenomegaly. PANCREAS: No focal masses or ductal dilatation. ADRENALS: No adrenal nodules. KIDNEYS/URETERS: No hydronephrosis, stones, or solid mass lesions. PELVIC ORGANS/BLADDER: Urinary bladder is unremarkable. Multiple phleboliths. Uterus is neutral in position and appears normal. Bilateral tubal ligation devices. No adnexal mass. PERITONEUM/RETROPERITONEUM: No free air or fluid. LYMPH NODES: No intra-abdominal,retroperitoneal, pelvic or inguinal lymphadenopathy. VESSELS: Limited evaluation without intravenous contrast. The abdominal aorta is nonaneurysmal. GI TRACT: The large bowel shows no evidence of distention or wall thickening. The appendix has been removed. No small bowel dilatation to suggest obstruction. BONES AND SOFT TISSUES: No osseous destructive lesions. Degenerative disc changes and facet arthropathy of the lower lumbar spine. No focal soft tissue abnormalities. IMPRESSION: No acute intra-abdominal or pelvic CT abnormalities. No evidence of urolithiasis. Signed by: Dr. Tramaine Hwang M.D. on 08/01/2018 2:05 PM
[2018-08-01 14:10] LABS: STREPTOCOCCUS GRP A ANTIGEN NEGATIVE (NEGATIVE)
[2018-08-01 14:12] LABS: BASOPHILS % 0.5 % (0.0-1.0); EOSINOPHILS # (AUTO) 0.1 (0.0-0.4); HEMATOCRIT 38.6 % (34.2-44.1); HEMOGLOBIN 13.5 g/dL (12.0-16.0); LYMPHOCYTES # (AUTO) 1.6 (1.0-3.2); LYMPHOCYTES % 27.1 % (18.0-39.1); MEAN CORPUSCULAR HEMOGLOBIN 31.6 pg (28-32); MEAN CORPUSCULAR VOLUME 90.4 fL (81-99); MONOCYTES # (AUTO) 0.2 (0.2-0.8); MONOCYTES % 4.2 % (4.4-11.3); NEUTROPHILS # (AUTO) 3.9 (2.1-6.9); NEUTROPHILS % 66.9 % (38.7-80.0); PLATELET COUNT 215 x10e3/uL (140-360); RED BLOOD COUNT 4.27 x10e6/uL (3.6-5.1); RED CELL DISTRIBUTION WIDTH 12.2 % (11.7-14.4)
[2018-08-01 14:13] LABS: BACTERIA,URINE MODERATE /HPF; EPITHELIAL CELLS,URINE MANY /LPF
[2018-08-01 14:16] LABS: ALBUMIN/GLOBULIN RATIO 1.3 (0.8-2.0); ANION GAP 9.5 mmol/L (8-16); CALCIUM 9.8 mg/dL (8.4-10.2); CREATININE, SERUM 0.97 mg/dL (0.57-1.11); POTASSIUM 3.5 mmol/L (3.5-5.1)
[2018-08-01 14:18] LABS: INFLUENZAE A&B ANTIGEN (RAPID) NEGATIVE (NEGATIVE)
[2018-08-01] MEDS ORDERED: HYDROCODONE/APAP 5MG-325MG TAB PO ONE (14:45)
[2018-08-01] MEDS ORDERED: ONDANSETRON HCL 4 MG ORAL DISINTEGRATING TAB PO ONE (14:45)
== END 2018-08-01 15:02 | disposition home or self-care (01) ==
LOC: ER 11:47
DX: R10.84 Generalized abdominal pain (principal); R10.31 Right lower quadrant pain; R11.2 Nausea with vomiting, unspecified; R19.7 Diarrhea, unspecified; A08.4 Viral intestinal infection, unspecified; M54.2 Cervicalgia; E11.9 Type 2 diabetes mellitus without complications; E78.5 Hyperlipidemia, unspecified; E07.9 Disorder of thyroid, unspecified
CPT/HCPCS: 36415; 74176; 80053; 81001; 82150; 83518; 83690; 85025; 87070; 87400; 99284; Q0162

== ENCOUNTER 2018-09-19 21:53 | Emergency (ER) | payer OTHER ==
[~2018-09-19] VITALS: Ht 157.5 cm; Wt 76.7 kg
--- OUTSIDE RECORDS SUMMARY | 2018-09-19 21:56 | XMS REPORT | Clinical Summary ---
Author Author [facility] Address Unknown Phone Unavailable Care Team Providers Care Outsole Handler Name Role Phone Joey Clark MD PCP [...] 09/25/2011 SHINGLES VACCINES (#1) 09/25/2011 INFLUENZA VACCINE 01/09/2019 Results Not on fileafter 09/18/2017 Insurance Payer Benefit Subscriber ID Type Phone Address Plan / Group UHC MEDICAID [employer] xxxxxxxxx [facility] Advance Directives Patient has advance care planning documents on file. For more information, pura fisher contact: Dima Lopez [address] [place] [id number]
--- OUTSIDE RECORDS SUMMARY | 2018-09-19 21:56 | XMS REPORT | Clinical Summary ---
Author Author [facility] Address Unknown Phone Unavailable Care Team Providers Care Media Operator Name Role Phone Joey Clark MD PCP Allergies Comments Active Allergy Reactions Severity Noted Date Caused deep depression. Suicidal ideations Gabapentin Other (See High 08/16/2018 Comments) Medications End Date Status Medication Sig Dispensed [...] on an empty stomach. Active INSULIN Inject 80 0 GLARGINE,HUM.REC.ANLOG Units (TOUJEO SOLOSTAR subcutaneousl SUBQ)Indications: y nightly 40 Abnormal liver enzymes units am, 80 units at night. Active aspirin 325 MG EC Take 325 mg 0 tabletIndications: by mouth Abnormal liver enzymes daily. Active insulin lispro (HUMALOG) Inject 60 0 100 unit/mL Units InPnIndications: Abnormal subcutaneousl [...] 40 mg by 0 MG capsuleIndications: mouth 2 (two) Abnormal liver enzymes times daily . Active rOPINIRole (REQUIP) 0.5 Take 0.5 mg [...] (two) Abnormal liver enzymes times daily. Active zonisamide (ZONEGRAN) 50 Take 100 mg 0 MG capsuleIndications: by mouth restless leg syndrome daily . Active HYDROcodone-acetaminophen Take 1 tablet 0 (NORCO 10-325) 10-325 mg by mouth per tablet every 6 (six) hours as needed for Pain. 10/12/2017 Discontinued levothyroxine (SYNTHROID, Take 150 mcg [...] 3 Abnormal liver enzymes (three) times daily. 08/16/2018 Discontinued HYOSCYAMINE ORAL Take 1 tablet 0 by mouth daily as needed . 02/19/2018 Discontinued carvedilol (COREG) 6.25 Take 6.25 [...] she was hospitalized in October 2016 at [facility] for hepatic encephalopathy. 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 08/26/2018 Emergency Emergency Medicine 08/25/2018 Travel Resource, [facility] Phone 08/16/2018 Hospital Pre-Admission Testing Encounter Pamela Liz MD Counts, Parxann Marie, PA Fatty liver disease, nonalcoholic (Primary Dx); Screening for endocrine/metabolic/immunity disorders; obesity; Abnormal liver enzymes 08/02/2018 Office Visit Hepatology Pamela Liz MD Abnormal liver diagnostic [...] Anthony Meadows MD 07/03/2018 Hospital Encounter Resource, [facility] Phone 07/02/2018 Hospital Pre-Admission Testing Encounter Pamela Liz MD Hall, Sophia Marie, NP Fatty liver disease, nonalcoholic (Primary Dx); obesity; Abnormal liver enzymes; Screening for endocrine/metabolic/immunity disorders; Abnormal liver diagnostic imaging 01/30/2018 Office Visit Hepatology Daxa Harkins RN Results 01/30/2018 [facility] 01/15/2018 Hospital Pre-Admission Testing Encounter Jayleen Gonzalez 10/29/2017 Anesthesia Event Anthony Meadows MD UPPER ENDOSCOPY 10/29/2017 Surgery Anthony Meadows MD 10/29/2017 Hospital Encounter Resource, [facility] Phone 10/12/2017 Hospital Pre-Admission Testing Encounter Steff Barksdale RN Lab result 2017 Telephone Hepatology Steff Barksdale RN Abnormal liver enzymes (Primary Dx) 2017 Orders Only Hepatology Steff Barksdale RN Lab Results 09/21/2017 Telephone Hepatology after 09/18/2017 Family History Medical History Relation Name Comments [...] Vital Signs Time Taken Vital Sign Reading 08/26/2018 3:15 PM CDT Blood Pressure 125/62 08/26/2018 3:15 PM CDT Pulse 80 08/26/2018 3:30 PM CDT Temperature 36.5 C (97.7 F) 08/26/2018 3:15 PM CDT Respiratory Rate 18 08/26/2018 3:15 PM CDT Oxygen Saturation 97% - Inhaled Oxygen - Concentration 08/26/2018 8:21 AM CDT Weight 78.9 kg (173 lb 14.4 oz) 08/26/2018 8:21 AM CDT Height 157.5 cm (5' 2") 08/26/2018 8:21 AM CDT Body Mass Index 31.81 Plan of Treatment Care Team Description Date Type Specialty Pamela Liz MD [address] [facility] [address] [place], [place] [id number] [facility] F 08/05/2019 Office Visit Hepatology Procedures Comments Procedure Name Priority Date/Time Associated Diagnosis POCT-GLUCOSE METER Routine 08/26/2018 2:51 PM CDT FL SERVICE DEVELOPER IN OR 30 Routine 08/26/2018 MINUTE INCREMENTS 2:40 PM CDT POCT-GLUCOSE METER Routine 08/26/2018 1:34 PM CDT POCT-GLUCOSE METER Routine 08/26/2018 12:06 PM CDT PROCEDURE W/ C-ARM 08/26/2018 Cervical radiculopathy 11:22 AM CDT Cervical disc herniation Case Notes 30 MINS PER FAX Special Needs (C-ARM/CORKY H) INJECTION,EPIDURAL 08/26/2018 Cervical radiculopathy CERVICAL/ THORACIC W/ 11:22 AM CDT Cervical disc herniation IMAGING GUIDANCE Case Notes 30 MINS PER FAX Special Needs (C-ARM/CORKY H) POCT-GLUCOSE METER Routine 08/26/2018 10:16 AM CDT POCT-GLUCOSE METER Routine 08/26/2018 8:47 AM CDT (CELLAVISION MANUAL DIFF) Routine 08/02/2018 Fatty liver disease, 10:17 AM SENIOR COMMUNICATIONS ENGINEER nonalcoholic CBC W/PLT COUNT & AUTO Routine 08/02/2018 Fatty liver disease, DIFFERENTIAL 10:17 AM SENIOR COMMUNICATIONS ENGINEER nonalcoholic CBC W/PLT COUNT & AUTO Routine 08/02/2018 Fatty liver disease, DIFFERENTIAL 10:17 AM SENIOR COMMUNICATIONS ENGINEER nonalcoholic HEPATIC FUNCTION PANEL Routine 08/02/2018 Fatty liver disease, 10:17 AM SENIOR COMMUNICATIONS ENGINEER nonalcoholic BASIC METABOLIC PANEL (7) Routine 08/02/2018 Fatty liver disease, 10:17 AM SENIOR COMMUNICATIONS ENGINEER nonalcoholic US ABDOMEN COMPLETE Routine 07/26/2018 Abnormal liver diagnostic 9:14 AM SENIOR COMMUNICATIONS ENGINEER imaging POCT-GLUCOSE METER Routine 07/03/2018 9:43 AM SENIOR COMMUNICATIONS ENGINEER REPORT OF PROCEDURE - 07/03/2018 ENDOSCOPY URL 9:35 AM SENIOR COMMUNICATIONS ENGINEER REPORT OF PROCEDURE - 07/03/2018 ENDOSCOPY URL 9:33 AM SENIOR COMMUNICATIONS ENGINEER SIGMOIDOSCOPY 07/03/2018 Abdominal pain, 9:30 AM SENIOR COMMUNICATIONS ENGINEER epigastric Hemorrhoids, unspecified hemorrhoid type UPPER ENDOSCOPY,BIOPSY 07/03/2018 Abdominal pain, 9:30 AM SENIOR COMMUNICATIONS ENGINEER epigastric Hemorrhoids, unspecified hemorrhoid type TISSUE EXAM AP Routine 07/03/2018 9:14 AM SENIOR COMMUNICATIONS ENGINEER POCT-GLUCOSE METER Routine 07/03/2018 8:27 AM SENIOR COMMUNICATIONS ENGINEER CBC W/PLT COUNT & AUTO Routine 01/30/2018 [...] POCT-GLUCOSE METER Routine 10/29/2017 1:47 PM CDT after 09/18/2017 Results * POC-Glucose meter (08/26/2018 2:51 PM CDT) Only the most recent of 8 results within the time period is included. POC-Glucose Meter 285 (H)Comment: TESTED AT 70 - 110 mg/dL [facility] BSC [address] [facility] [address] Specimen Blood Performing Organization Address City/State/Zipcode Phone Number [facility] [address] [place] [address] MEDICAL CENTER * [place] graduate civil engineer in or 30 minute increments (08/26/2018 2:40 PM CDT) Narrative Performed At FINAL REPORT [employer] Fluoroscopy. History: Intraoperative. Findings:Radiologist was not present for the exam.Fluoroscopy was not performed by the undersigned.Three images from intraoperative fluoroscopy demonstrate epidural injection. Fluoroscopy time is 26 seconds. IMPRESSION: Intraoperative exam as described above. Signed: Deshawn Dawkins MD Report Verified Date/Time:08/26/2018 15:18:57 Reading Location: [address] Radiology Reading Room Procedure Note Interface, External Ris In - 08/26/2018 3:21 PM CDT FINAL REPORT Fluoroscopy. History: Intraoperative. Findings: Radiologist was not present for the exam. Fluoroscopy was not performed by the undersigned. Three images from intraoperative fluoroscopy demonstrate epidural injection. Fluoroscopy time is 26 seconds. IMPRESSION: Intraoperative exam as described above. Signed: Deshawn Dawkins MD Report Verified Date/Time: 08/26/2018 15:18:57 Reading Location: [address] Radiology Reading Room Performing Organization Address City/State/Zipcode Phone Number [facility] * Manual Differential (08/02/2018 10:17 AM SENIOR COMMUNICATIONS ENGINEER) % Neutros 73 % [facility] % Lymphs 20 % [facility] % Monos 5 % [facility] % Eos 1 % [facility] % Atypical Lymphs 1 (H) 0 - 0 % [facility] # Neutros 3.65 1.56 - 6.13 K/ul [facility] # Lymphs 1.00 (L) 1.18 - 3.74 K/ul [facility] # Monos 0.25 0.24 - 0.36 K/uL [facility] # Eos 0.05 0.04 - 0.36 K/uL [facility] # Atypical Lymphs 0.05 (H) 0.00 - 0.00 K/uL [facility] Total Counted 100 [facility] RBC Morphology Normal [facility] WBC Morphology Normal [facility] Large Platelet Present [facility] Artifact Present [facility] Platelet Conc Adequate [facility] Specimen Blood Narrative Performed At Received comment: [facility] User comments: [facility] Slide comments: Performing Organization Address City/[facility] Phone Number [facility] [address] [place] [address] [facility] * CBC with platelet count + automated diff (08/02/2018 10:17 AM SENIOR COMMUNICATIONS ENGINEER) Only the most recent of 2 results within the time period is included. WBC 5.0 3.5 - 10.5 K/L [facility] RBC 4.25 3.93 - 5.22 M/L [facility] Hemoglobin 13.1 11.2 - 15.7 GM/DL [facility] Hematocrit 39.5 34.1 - 44.9 % [facility] MCV 92.9 79.4 - 94.8 fL [facility] MCH 30.8 25.6 - 32.2 pg [facility] MCHC 33.2 32.2 - 35.5 GM/DL [facility] RDW 12.2 11.7 - 14.4 % [facility] Platelets 203 150 - 450 K/CU MM [facility] MPV 9.8 9.4 - 12.3 fL [facility] nRBC 0 0 - 0 /100 WBC [facility] Specimen Blood Performing Organization Address City/[facility]/Zipcode Phone Number [facility] [address] [place] [address] [facility] * Hepatic function panel (08/02/2018 10:17 AM SENIOR COMMUNICATIONS ENGINEER) Only the most recent of 3 results within the time period is included. Protein, Total 6.9Comment: Specimen slightly 6.0 - 8.3 gm/dL [facility] Albumin 3.9Comment: Specimen slightly 3.5 - 5.0 g/dL [facility] Total Bilirubin 0.4Comment: Specimen slightly 0.2 - 1.2 mg/dL [facility] Bilirubin, Direct 0.2Comment: Specimen slightly 0.1 - 0.5 mg/dL [facility] Alkaline Phosphatase 123 40 - 150 U/L [facility] AST 24Comment: Specimen slightly 5 - 34 U/L [facility] ALT 36Comment: Specimen slightly 6 - 55 U/L [facility] Specimen Blood Performing Organization Address City/State/Zipcode Phone Number [place] [phone] [place] [address] [facility] * Basic Metabolic Panel (08/02/2018 10:17 AM SENIOR COMMUNICATIONS ENGINEER) Only the most recent of 3 results within the time period is included. Sodium 140 136 - 145 meq/L [facility] Potassium 4.6Comment: Specimen slightly 3.5 - 5.1 meq/L [facility] Chloride 110 (H) 98 - 107 meq/L [facility] CO2 24 22 - 29 meq/L [facility] BUN 13 7 - 21 mg/dL [facility] Creatinine 0.88Comment: Specimen slightly 0.57 - 1.25 mg/dL [facility] Glucose 289 (H) 70 - 105 mg/dL [facility] Calcium 9.6 8.4 - 10.2 mg/dL [facility] EGFR 66Comment: ESTIMATED GFR IS mL/min/1.[address] [facility] NOT ACCURATE CREATININE [facility] CLEARANCE IN PREDICTING GLOMERULAR FILTRATION RATE. ESTIMATED GFR IS NOT APPLICABLE FOR DIALYSIS PATIENTS. Specimen Blood Performing Organization Address City/State/Zipcode Phone Number [facility] [address] [place] [address] MEDICAL CENTER * US abdomen complete (07/26/2018 9:14 AM SENIOR COMMUNICATIONS ENGINEER) Narrative Performed At FINAL REPORT [employer] TECHNIQUE: Grayscale ultrasound of the abdomen with [...] MD Report Verified Date/Time:07/26/2018 13:04:39 Reading Location: [address] Radiology Reading Room Procedure Note Interface, External Ris In - 07/26/2018 1:06 PM SENIOR COMMUNICATIONS ENGINEER FINAL REPORT TECHNIQUE: Grayscale ultrasound of the [...] Report Verified Date/Time: 07/26/2018 13:04:39 Reading Location: [address] Radiology Reading Room Performing Organization Address City/State/Zipcode Phone Number [facility] * REPORT OF PROCEDURE - ENDOSCOPY URL (07/03/2018 9:35 AM SENIOR COMMUNICATIONS ENGINEER) Narrative Performed At * REPORT OF PROCEDURE - ENDOSCOPY URL (07/03/2018 9:33 AM SENIOR COMMUNICATIONS ENGINEER) Narrative Performed At * Tissue Exam (07/03/2018 9:14 AM SENIOR COMMUNICATIONS ENGINEER) Case Report Surgical Pathology [facility] Report [facility] Case: [id number] Authorizing Provider:Anthony Meadows MD Collected: 07/03/2018 0914 Ordering Location: [facility] ENDOSCOPY Received: 07/03/2018 1156 SERVICES Pathologist: Chandrika Pennington MD Specimens: A) - Biopsy, Gastric, BX R/O H PYLORI B) - Distal Esophagus, BX FOR REFLUX DIAGNOSIS A. STOMACH, BIOPSIES: [facility] - CHRONIC INACTIVE GASTRITIS [facility] - CHEMICAL/REACTIVE GASTROPATHY B. ESOPHAGUS, DISTAL, BIOPSIES: - REFLUX ESOPHAGITIS Signing Pathologist Direct Phone Line: [phone] CPT Code(s) Sj/ew [facility] [address] x2 [facility] [address] CLINICAL HISTORY Abdominal pain, hemorrhoids, [facility] rule out H. Pylori. Reflux [facility] SPECIMEN SOURCE A. Gastric biopsy; B. Distal [facility] esophagus [facility] GROSS DESCRIPTION The specimen is received in [facility] two containers of formalin [facility] both labeled with the patient's information. Part A labeled "gastric biopsy" consists of multiple fragments of mann-pink soft tissue ranging from less than 0.1 to 0.2 cm,submitted entirely A1. Part B labeled "distal esophagus biopsy" consists of four fragments of off white tissue ranging from 0.1 to 0.5 cm, submitted entirely B1. CG/pl MICROSCOPIC DESCRIPTION A. Biopsies of the stomach [facility] have intestinal metaplasia and [facility] antral and oxyntic mucosa with mild increased chronic inflammatory cells in the lamina propria. No helicobacter pylori are seen on H&E or Warthin starry stains. No dysplasia or malignancy is seen. B. Biopsies of the distal esophagus have squamous epithelium with basal cell hyperplasia. No fungi, viral cytopathic effect, dysplasia or malignancy is seen. SPECIAL STUDIES The interpretation of this [facility] case included the use of [facility] immunohistochemistry or special stains. Immunohistochemistry technical testing was performed at [facility], Pathology Laboratory where it was developed [...] Tissue - Biopsy, Gastric Performing Organization Address City/[facility]/Zipcode Phone Number [facility] [address] [place] [address] [facility] * Pro-time/INR (01/30/2018 11:52 AM CDT) Protime 13.4 11.7 - 14.7 seconds [facility] INR 1.0 <=5.9 [facility] Specimen Blood Narrative Performed At RECOMMENDED COUMADIN/WARFARIN INR THERAPY RANGES [facility] STANDARD DOSE: 2.0 - 3.0 Includes: PROPHYLAXIS for venous thrombosis, [facility] systemic embolization; TREATMENT for venous thrombosis and/or pulmonary embolus. HIGH RISK: Target INR is 2.5-3.5 for patients with mechanical heart valves. Performing Organization Address City/[facility] Phone Number [facility] [address] [place] [address] [facility] * CBC with platelet count + automated diff (11/30/2017 3:26 PM CDT) WBC 6.2 3.4 - 10.8 x10E3/uL [facility] [...] 1 Specimen Blood Narrative Performed At Performed at:01 - [facility] [address] [place], [id number] Food Service Worker: Mannie Chambers MD, Phone:[phone] Performing Organization Address City/State/Zipcode Phone Number [facility] 1 * REPORT OF PROCEDURE - ENDOSCOPY URL (10/29/2017 2:19 PM CDT) Narrative Performed At after 09/18/2017 Insurance Payer Benefit Subscriber ID Type Phone Address Plan / Group MEDICAID - MEDICAID MGD [facility] xxxxxxxxx Medicaid CARE COMM STAR Contracted PLAN Advance Directives Patient has advance care planning documents on file. For more information, pura fisher contact: [facility] [address] [place] [address]
--- OUTSIDE RECORDS SUMMARY | 2018-09-19 21:56 | XMS REPORT | Clinical Summary ---
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 Office Visit Dermatology after 09/18/2017 Immunizations Name Dates Previously Given Next Due [...] Taken Vital Sign Reading 06/29/2018 5:33 PM [facility] Blood Pressure 150/97 06/29/2018 5:33 PM [facility] Pulse 100 06/29/2018 5:33 PM [facility] Temperature 36.7 C (98 F) 06/29/2018 5:33 PM [facility] Respiratory Rate 18 06/29/2018 5:33 PM [facility] Oxygen Saturation 99% - Inhaled Oxygen - Concentration 06/29/2018 1:23 PM [facility] Weight 78.1 kg (172 lb 3.2 oz) - Height - 08/30/2016 11:24 AM CDT Body Mass Index 31.5 Plan of Treatment Health Maintenance Due Date Last Done Comments Cervical Cancer Scrn (3 1982 Yrs) Breast Cancer Scrn 04/22/2010 04/22/2009, 04/08/2007 (Yearly) Colorectal Cancer Scrn 09/25/2011 Annual (FIT/FOBT) Age 50 to 75 IMM Influenza Seasonal 03/11/2019Mar to August (>/=19 yrs) Procedures Comments Procedure Name Priority Date/Time Associated Diagnosis GLUCOSE POC Routine 06/29/2018 1:27 PM [facility] HIV-1/HIV-2 ROUTINE Routine 11/30/2017 Pruritus SCREENING 11:56 AM CDT HEPATITIS PANEL Routine 11/30/2017 Pruritus 11:56 AM CDT COMPREHENSIVE METABOLIC Routine 11/30/2017 Pruritus PANEL(DBIL NOT INCLUDED) 11:56 AM CDT CBC/DIFF Routine 11/30/2017 Pruritus 11:56 AM CDT after 09/18/2017 Results * GLUCOSE POC (06/29/2018 1:27 PM ZANJERO) Glucose POC 309 (H) 74 - 106 mg/dL [facility] 1 Performing Organization Address City/[facility] Phone Number [facility] 1 * HIV-1/HIV-2 ROUTINE SCREENING (11/30/2017 11:56 AM CDT) Pathologist [facility] HIV-1/HIV-2 Negative NEG [facility] 2 Performing Organization Address [facility] Phone Number MISJO[facility] 2 * COMPREHENSIVE METABOLIC PANEL(DBIL NOT INCLUDED) (11/30/2017 11:56 AM CDT) Albumin 3.6 3.4 - 5.0 g/dL [facility] 2 Calcium 9.3 8.50 - 10.20 mg/dL [facility] 2 CO2 24 21 - 32 mmol/L [facility] 2 Chloride 105 98 - 107 mmol/L [facility] 2 Creatinine 0.81 0.60 - 1.30 mg/dL [facility] 2 Glucose 156 (H) 70 - 99 mg/dL [facility] 2 Alk Phos 166 (H) 45 - 117 U/L [facility] 2 Potassium 4.1 3.50 - 5.10 mmol/L [facility] 2 Sodium 138 136 - 145 mmol/L [facility] 2 ALT 93 (H) 12 - 78 U/L [facility] 2 AST 60 (H) 15 - 37 U/L [facility] 2 Urea Nitrogen 19 (H) 7 - 18 mg/dL [facility] 2 T Bilirubin 0.5 0.2 - 1.0 mg/dL [facility] 2 T Protein 7.6 6.4 - 8.2 g/dL [facility] 2 GFR, Estimated >60 mL/min/1.73 m2 [facility] 2 GFR, Estim, >60 mL/min/1.73 m2 [facility] 2 Anion Gap 9 [facility] 2 Specimen Blood Performing Organization Address [facility] Phone Number [facility] 2 * HEPATITIS PANEL (11/30/2017 11:56 [...] Phone Number [facility] 2 after 09/18/2017 Insurance Type Payer Benefit Subscriber ID Effective Phone Address Plan / Dates Group [facility] xxxxxxxxx 2016- [phone] COMMUNITY Present [id number] [place] [address] [facility] SELF-PAY [facility] xxxxxxxxx 2018- [phone] [address] [place] [address] [employer]undo[employer]asmine brooks Personal/F Self [address] [place] (Home) [place] [address]
== END 2018-09-19 22:40 | disposition left against medical advice (07) ==
LOC: ER 21:53
DX: M54.2 Cervicalgia (principal)

== ENCOUNTER → 2019-09-08 | Emergency (ER) | payer OTHER ==
[~2019-09-08] VITALS: Ht 157.5 cm; Wt 76.7 kg
[~2019-09-08] MED LIST changes: +ASPIR 8181 MG PO; +COREG CR10 MG PO; +LEVOTHYROXINE50 MCG PO; +LIPITOR10 MG PO; +POTASSIUM CHLO20 ME1 PO; +ROPINIROLE HCL1 MG PO; +TOUJEO SOL300 UNIT/1 SC; +ZOLOFT50 MG PO
--- OUTSIDE RECORDS SUMMARY | 2019-09-08 14:44 | XMS REPORT | Summary of Care ---
Author Author [facility] Organization [facility] Address Unknown Phone Unavailable Care Team Providers Care Mingle Operator Name Role Phone Joey Clark MD [facility] [employer] Reason for Visit * Reason Comments Follow Up Irritable Bowel Syndrome Encounter Details Care Team Description Date Type Department Anthony Meadows MD [address] [facility] [address] [place] [address] Follow Up ; Irritable Bowel Syndrome 01/02/[address] [facility] Gastroenterology [address] [facility], [address] [place] [address] Allergies Comments Active Allergy Reactions Severity Noted Date unknown Gabapentin Other (See Medium 08/07/2018 Comments) documented as of this encounter (statuses as of 01/13/2019) Medications End Date Status Medication Sig Dispensed Refills Start Date Active aspirin 81 MG tablet Take 81 mg by 0 mouth every morning. Active furosemide (LASIX) 20 MG Take 1 Tab by 30 Tab 2 tabletIndications: mouth daily. 6 Unspecified hypothyroidism, Dyslipidemia, Uncontrolled type 2 diabetes mellitus with insulin therapy, Elevated liver enzymes Active sertraline (ZOLOFT) 100 Take 100 mg 0 MG tablet by mouth two times daily. Active ONETOUCH DELICA LANCETS 1 Each four 100 Each 33G MISCIndications: Type times daily. 7 2 diabetes mellitus with insulin therapy Active Glucose Blood Strips (ONE CHECK BLOOD 100 Strip 11 TOUCH ULTRA SUGAR 3 TO 4 7 TEST)Indications: Type 2 TIMES A DAY diabetes mellitus with insulin therapy Active ONE TOUCH ULTRA TEST CHECK BLOOD 100 Strip 3 SUGAR 3 TO 4 7 TIMES A DAY Active Blood Glucose Monitoring onetouch 1 Each 11 Suppl (ONE TOUCH ULTRA ultra mini 7 MINI) W/DEVICE Glucometer KITIndications: Type 2 kit diabetes mellitus with insulin therapy Active potassium chloride SA Take 1 Tab by 0 (K-DUR, KLOR-CON M20) 20 mouth daily. 8 MEQ tablet Active carvedilol (COREG) 6.25 Take 1 Tab by 0 MG tablet mouth daily 8 as needed. Active atorvastatin (LIPITOR) 40 Take 1 Tab by 0 MG tablet mouth daily. 8 Active zonisamide (ZONEGRAN) 100 Take 3 Caps 90 Cap 3 MG capsule by mouth 9 nightly. Take 2 caps by mouth nightly for 2 weeks then increase to 3 caps by mouth nightly. Active pregabalin (LYRICA) 50 MG Take 1 Cap by 60 Cap 0 capsule mouth two 9 times daily. Take one tablet every night at bedtime for three days, then twice a day . Active ropinirole (REQUIP) 1 MG Take 1 Tab by 90 Tab 3 tablet mouth 9 nightly. Active zonisamide (ZONEGRAN) 100 Take 3 Caps 90 Cap 3 MG capsule by mouth 9 nightly. Take 2 caps by mouth nightly for 2 weeks then increase to 3 caps by mouth nightly. Active hydrocodone-acetaminophen Take 1 Tab by 120 Tab 0 (NORCO) 10-325 MG per mouth 4 times 9 tablet daily as needed for Pain. Active Insulin Lispro (HUMALOG Inject 60 45 mL 0 KWIKPEN) 100 UNIT/ML Units into 9 SOPNIndications: Type 2 the skin 3 diabetes mellitus with times daily insulin therapy (with meals). Active BD PEN NEEDLE JAHAIRA U/F Use 6 times 200 Each 0 32G X 4 MM daily for 9 MISCIndications: Type 2 insulin diabetes mellitus with pens.Dx E11.9 insulin therapy Active fenofibrate (TRICOR) 145 Take 1 Tab by 90 Tab 0 MG tablet mouth daily. 9 01/06/2019 Discontinued levothyroxine (SYNTHROID) TAKE 1 TAB BY 90 Tab 1 200 MCG MOUTH DAILY. 8 tabletIndications: Hypothyroidism 01/13/2019 Discontinued metformin (GLUCOPHAGE-XR) Take 1 Tab by 60 Tab 4 500 MG XR tablet mouth two 8 times daily. 01/02/2019 Discontinued NEXIUM 40 MG capsule Take 1 30 Cap 2 capsule by 9 mouth daily. 01/02/2019 Discontinued Insulin Glargine (TOUJEO 60 units in 27 Pen 1 SOLOSTAR) 300 UNIT/ML the morning, 9 SOPNIndications: Type 2 60 units in diabetes mellitus with the evening insulin therapy 01/10/2019 Discontinued esomeprazole (NEXIUM) 40 Take 1 Cap by 60 Cap 5 MG capsule mouth 2 times 9 daily (before meals). 01/12/[address] 25 mg 20 Each 0 (ANUSOL-HC) 25 MG rectally two 9 suppository times daily for 10 days. documented as of this encounter (statuses as of 01/13/2019) Active Problems Problem Noted Date Insulin dependent type 2 diabetes mellitus 07/30/2018 Neuropathy, diabetic 07/17/2018 History of stroke 07/17/2018 Neuropathy 05/27/2018 Sensorineural hearing loss (SNHL) of both ears 11/20/2017 Bilateral temporomandibular joint pain 11/20/2017 HEMANT (obstructive sleep apnea) 03/09/2016 Overview: AHI 21.8,sat kirit 88% Auto-CPAP 10-14 cm Diabetes mellitus 10/14/2014 Unspecified hypothyroidism 07/16/2014 RLS (restless legs syndrome) Stroke Overview: with residual L sided weakness HLD (hyperlipidemia) Depression HEMANT on CPAP documented as of this encounter (statuses as of 01/13/2019) Immunizations Name Administration Dates Next Due Influenza Quad-PF 03/26/2018 documented as of this encounter Social History Date Tobacco Use Types Packs/Day Years Used Quit: 01/2014 Former Smoker Cigarettes 2 31 Smokeless Tobacco: Former Quit: 01/09/2013 User Drinks/Week oz/Week Comments Alcohol Use No Sex Assigned at Date Recorded Not on file Industry Job Start Date Occupation Not on file Not on file Not on file Travel End Travel History Travel Start No recent travel history available. documented as of this encounter Last Filed Vital Signs Reading Time Taken Comments Vital Sign 112/58 01/02/2019 9:06 AM CDT Blood Pressure 79 01/02/2019 9:06 AM CDT Pulse - - Temperature - - Respiratory Rate - - Oxygen Saturation - - Inhaled Oxygen Concentration 73.6 kg (162 lb 3.2 oz) 01/02/2019 9:06 AM CDT Weight 157.5 cm (5' 2") 01/02/2019 9:06 AM CDT Height 29.67 01/02/2019 9:06 AM CDT Body Mass Index documented in this encounter Progress Notes * Anthony Meadows MD - 01/02/2019 10:00 AM CDT Gastroenterology Clinic Note Reason for referral: Referring physician: No ref. provider found HPI: 58 y.o. year old patient presents to the GI clinic for evaluation of hemorr hoid discomfort. No bleeding/ Patient denies Heartburn or dysphagia or regurgitation No gas or bloating. abdominal pain or cramps, diarrhea, constipation, GI bleeding, weight loss. No history of PUD. No vascular grafts in abdomen. There is no FH of colon polyps or colon cancer. No FH of Liver disease. No pancreatic cancer in family. Does not smoke. Does not drink. PMH/PSH: Past Medical History: Diagnosis Date CAD (coronary artery disease) 2015 s/p PCI- Dr. Fong in [facility] DM (diabetes mellitus) HLD (hyperlipidemia) Hypothyroid Neuropathy, diabetic HEMANT on CPAP RLS (restless legs syndrome) Stroke with residual L sided weakness Past Surgical History: Procedure Laterality Date HX APPENDECTOMY HX CARPAL TUNNEL RELEASE HX CHOLECYSTECTOMY Allergies: Allergies Allergen Reactions Gabapentin Other (See Comments) unknown Medications: Outpatient Medications Prior to Visit Medication Sig Dispense Refill aspirin Take 81 mg by mouth every morning. atorvastatin Take 1 Tab by mouth daily. BD PEN NEEDLE JAHAIRA U/F Use 6 times daily for insulin pens.Dx E11.9 200 Each 0 ONE TOUCH ULTRA MINI onetouch ultra mini Glucometer kit 1 Each 11 carvedilol Take 1 Tab by mouth daily as needed. fenofibrate Take 1 Tab by mouth daily. 90 Tab 0 furosemide Take 1 Tab by mouth daily. (Patient taking differently: Take 40 m g by mouth daily.) 30 Tab 2 Glucose Blood Strips CHECK BLOOD SUGAR 3 TO 4 TIMES A DAY 100 Strip 11 hydrocodone-acetaminophen Take 1 Tab by mouth 4 times daily as needed for Pa in. 120 Tab 0 Insulin Glargine 60 units in the morning, 60 units in the evening 27 Pen 1 Insulin Lispro Inject 60 Units into the skin 3 times daily (with meals). 45 mL 0 levothyroxine TAKE 1 TAB BY MOUTH DAILY. 90 Tab 1 metformin Take 1 Tab by mouth two times daily. (Patient taking differently: Take 1,000 mg by mouth two times daily.) 60 Tab 4 [DISCONTINUED] NEXIUM Take 1 capsule by mouth daily. 30 Cap 2 ONE TOUCH ULTRA TEST CHECK BLOOD SUGAR 3 TO 4 TIMES A DAY 100 Strip 3 ONETOUCH DELICA LANCETS 33G 1 Each four times daily. 100 Each 11 potassium chloride SA Take 1 Tab by mouth daily. pregabalin Take 1 Cap by mouth two times daily. Take one tablet every night at bedtime for three days, then twice a day . 60 Cap 0 ropinirole Take 1 Tab by mouth nightly. 90 Tab 3 sertraline Take 100 mg by mouth two times daily. zonisamide Take 3 Caps by mouth nightly. Take 2 caps by mouth nightly for 2 weeks then increase to 3 caps by mouth nightly. 90 Cap 3 zonisamide Take 3 Caps by mouth nightly. Take 2 caps by mouth nightly for 2 weeks then increase to 3 caps by mouth nightly. 90 Cap 3 No facility-administered medications prior to visit. Social Hx: reports that she quit smoking about 4 years ago. Her smoking use included cigar ettes. She has a 62.00 pack-year smoking history. She quit smokeless tobacco use about 5 years ago. She reports that she does not drink alcohol or use drugs. Social History Socioeconomic History Marital status: Spouse name: Not on file Number of children: Not on file Years of education: Not on file Highest education level: Not on file Occupational History Occupation: disabled Comment: Worked as a teacher Social Needs Financial resource strain: Patient refused Food insecurity: Worry: Patient refused Inability: Patient refused Transportation needs: Medical: Patient refused Non-medical: Patient refused Tobacco Use Smoking status: Former Smoker Packs/day: 2.00 Years: 31.00 Pack years: 62 Types: Cigarettes Quit date: 01/2014 Years since quittin.9 Smokeless tobacco: Former User Quit date: 01/09/2013 Substance and Sexual Activity Alcohol use: No Drug use: No Sexual activity: Not on file Lifestyle Physical activity: Days per week: Patient refused Minutes per session: Patient refused Stress: Patient refused Relationships Social connections: Talks on phone: Patient refused Gets together: Patient refused Attends uatsdin service: Patient refused Active member of club or organization: Patient refused Attends meetings of clubs or organizations: Patient refused Relationship status: Patient refused Intimate partner violence: Fear of current or ex partner: Patient refused Emotionally abused: Patient refused Physically abused: Patient refused Forced sexual activity: Patient refused Other Topics Concerns: Not on file Social History Narrative Right handed Family Hx: No family history of GI malignancy or disease. No known inflammatory bowel disease. Review of Systems : Constitutional: Negative. HENT: Negative. Eyes: Negative. Respiratory: Negative. Cardiovascular: Negative. Gastrointestinal: see HPI Genitourinary: Negative. Musculoskeletal: Negative. Skin: Negative. Neurological: Negative. Hematological: Negative. Physical Exam : Constitutional: Oriented to person, place, and time. Well-developed and well-no urished. No distress. Head: Normocephalic and atraumatic. Eyes: EOM are normal. Pupils are equal, round, and reactive to light. Neck: Normal range of motion. Neck supple. Cardiovascular: Normal rate, regular rhythm and normal heart sounds. Exam revea ls no gallop and no friction rub. No murmur heard. Pulmonary/Chest: Effort normal and breath sounds normal. No respiratory distress . No wheezes or rales. Abdominal: Soft. Bowel sounds are normal. No distension and no mass. No abdomina l tenderness present. No rebound and no guarding. MAURICE: No fissure or mass Musculoskeletal: Normal range of motion. No edema and no tenderness. Neurological: Alert and oriented to person, place, and time. No cranial nerve de ficit. Coordination normal. Skin: Skin is warm and dry. No rash noted. Not diaphoretic. No erythema. No pall or. Labs: Reviewed Lab Results Component Value Date WBC 6.0 12/04/2018 HGB 13.3 12/04/2018 HCT 38.9 12/04/2018 MCV 88.6 12/04/2018 Lab Results Component Value Date NA 136 12/04/2018 K 4.1 12/04/2018 CL 104 12/04/2018 CO2 25 12/04/2018 BUN 17 12/04/2018 CREATININE 0.93 12/04/2018 Radiology: Reviewed Endoscopy: Reviewed Assessment/Plan: Trial of anusol HC May need anoscopy if sx persisit. Risks and benefits of the procedure explained to patient and questions answered. The findings, plan and recommendations have been discussed in detail with the alejandro vaughan who expresses understanding . Endoscopy risks (including but not limited to perforation, bleeding, infection, missed lesions), benefits, alternatives of the procedure have been discussed in detail with the patient who expresses understanding . Lifestyle modifications advised: healthy weight loss, elevation of the head of t he bed, refrain from assuming a supine position after meals and avoidance of darius ls two to three hours before bedtime. Selective dietary modification of possible dietary triggers (fatty foods, caffeine, chocolate, spicy foods, food with high fat content, carbonated beverages, and peppermint) if noted correlation with GE RD symptoms and an improvement in symptoms with elimination. Detailed conversation with patient about PPI/H2B use and potential associations with adverse reactions including those associated with prolonged use. In case of new symptoms, worsening of symptoms or any other questions or concern s call the clinic for an earlier appointment and or go to the ER. I spent a total or 40 minutes with the patient, with over 50% of the time spent on face to face counseling/coordination on issues including, but not limited to the diagnosis. Questions were answered to the patient's satisfaction who agrees to the plan as outlined. documented in this encounter Plan of Treatment Care Team Description Date Type Specialty 01/17/2019 Ancillary Radiology Procedure Navdeep Gonzales MD [address] [place] [address] [phone] 03/10/2019 Office Visit Neurosurgery Anthony Meadows MD [address] [place] [address] [phone] 04/08/2019 Office Visit Gastroenterology Bong Camejo MD [address] [place], [place] [id number] 04/29/2019 Office Visit Pulmonology Health Maintenance Due Date Last Done Comments COLON CANCER SCREENIN1961 COLONOSCOPY MAMMOGRAM ANNUAL 1961 TETANUS SHOT (ADULT) 1976 ANNUAL DIABETIC 09/25/1979 RETINOPATHY SCREENING BMI FOLLOW UP PLAN 09/25/1979 HIV SCREENING 09/25/1979 CERVICAL CANCER SCREENING 1982 3 YEAR FOLLOW UP FLU VACCINE > 6 MONTHS 01/09/2019 03/26/2018, 06/11/2017, 09/12/2016 ANNUAL DIABETIC FOOT EXAM 05/27/2019 05/27/2018 A1C TESTING EVERY 6 07/05/2019 01/02/2019, 05/27/2018, 09/04/2017, MONTHS Additional history exists HEPATITIS C SCREENING Completed 11/30/2017, 02/23/2016 documented as of this encounter Results Not on filedocumented in this encounter Visit Diagnoses Diagnosis Hemorrhoids, unspecified hemorrhoid type - Primary documented in this encounter Insurance Type Payer Benefit Subscriber ID Effective Phone Address Plan / Dates Group Medicaid [employer] xxxxxxxxx 2013-P [address] [address] [place] [address] documented as of this encounter
--- OUTSIDE RECORDS SUMMARY | 2019-09-08 14:44 | XMS REPORT | Summary of Care ---
Author Author [facility] Organization [facility] Address Unknown Phone Unavailable Care Team Providers Care Energy Projects Lead Name Role Phone Joey Clark MD [employer] 34 Reason for Referral * Radiology Services (Routine) Referred By Contact Referred To Contact Status Reason Specialty Diagnoses / Procedures Bong Camejo MD [address] [address] Tammy, Radiology [address] [facility]. 1st [place] [address] Pending Radiology Diagnoses Lung nodules P rocedures CT CHEST WO CONTRAST Reason for Visit * Reason Comments OBSTRUCTIVE SLEEP APNEA Chronic Obstructive Pulmonary Disease Encounter Details Care Team Description Date Type Department Bong Camejo MD [address] [facility] [address] [place] [address] [id number] OBSTRUCTIVE SLEEP APNEA; Chronic Obstructive Pulmonary Disease 02/11/2019 Office Visit [facility] Pulmonary [address] [place] [address] 8th Floor; [address] [place] [address] Allergies Comments Active Allergy Reactions Severity Noted Date Mood changes Gabapentin Other (See Medium 08/07/2018 Comments) documented as of this encounter (statuses as of 02/11/2019) Medications End Date Status Medication Sig Dispensed [...] tablet by mouth two times daily. Active ONE TOUCH ULTRA TEST CHECK BLOOD 100 Strip 3 SUGAR 3 TO 4 7 TIMES A DAY Active potassium chloride SA Take 1 Tab [...] to 3 caps by mouth nightly. Active ropinirole (REQUIP) 1 MG Take 1 Tab by 90 Tab 3 tablet mouth 9 nightly. Active zonisamide (ZONEGRAN) 100 Take 3 Caps 90 Cap 3 MG capsule by mouth 9 nightly. Take 2 caps by mouth nightly for 2 weeks then increase to 3 caps by mouth nightly. Active BD PEN NEEDLE JAHAIRA U/F Use 6 times 200 Each 0 32G X 4 MM daily for 9 MISCIndications: Type 2 insulin diabetes mellitus with pens.Dx E11.9 insulin therapy Active fenofibrate (TRICOR) 145 Take 1 Tab by 90 Tab 0 MG tablet mouth daily. 9 Active Insulin Glargine (TOUJEO 60 units in 27 Pen 1 SOLOSTAR) 300 UNIT/ML the morning, 9 SOPNIndications: Type 2 60 units in diabetes mellitus with the evening insulin therapy Active acetaminophen-codeine Take 1 Tab by 60 Tab 0 (TYLENOL/CODEINE #3) mouth every 4 9 300-30 MG per tablet hours as needed. Active levothyroxine (SYNTHROID) Take 1 Tab by 90 Tab 1 200 MCG mouth daily. 9 tabletIndications: Hypothyroidism Active levothyroxine (SYNTHROID) Take 1 Tab by 90 Tab 1 25 MCG tablet mouth daily. 9 Active NEXIUM 40 MG capsule Take 1 Cap by 60 Cap 5 mouth 2 times 9 daily (before meals). Active metformin (GLUCOPHAGE) One tablet 180 Tab 2 1000 MG tablet BID 9 Active hydrocodone-acetaminophen Take 1 Tab by 120 Tab 0 (NORCO) 10-325 MG per mouth 4 times 9 tablet daily as needed for Pain. Active Insulin Lispro (HUMALOG Inject 60 45 mL 2 KWIKPEN) 100 UNIT/ML units 9 SOPNIndications: Type 2 subcutaneousl diabetes mellitus with y three times insulin therapy daily with meals.Please make follow up with Dr Barksdale Active Glucose Blood Strips (ONE CHECK BLOOD 400 Strip 3 TOUCH ULTRA SUGAR 4 TIMES 9 TEST)Indications: Type 2 A DAY.; Dx diabetes mellitus with E11.9 insulin therapy Active ONETOUCH DELICA LANCETS Use one 400 Each 3 33G MISCIndications: Type lancet to 9 2 diabetes mellitus with check blood insulin therapy glucose 4x daily.; Dx E11.9 Active Blood Glucose Monitoring onetouch 1 Each 0 Suppl (ONE TOUCH ULTRA ultra mini 9 MINI) w/Device Glucometer KITIndications: Type 2 kit diabetes mellitus with insulin therapy 02/11/2019 Discontinued pregabalin (LYRICA) 50 MG Take 1 Cap by 60 Cap 0 capsule mouth two 9 times daily. Take one tablet every night at bedtime for three days, then twice a day . documented as of this encounter (statuses as of 02/11/2019) Active Problems Problem Noted Date Insulin dependent [...] as of this encounter (statuses as of 02/11/2019) Immunizations Name Administration Dates Next Due Influenza [...] Signs Reading Time Taken Comments Vital Sign 118/77 02/11/2019 1:12 PM CDT Blood Pressure 92 02/11/2019 1:12 PM CDT Pulse 37.1 C (98.7 F) 02/11/2019 1:12 PM CDT Temperature 16 02/11/2019 1:12 PM CDT Respiratory Rate - - Oxygen Saturation - - Inhaled Oxygen Concentration 72.5 kg (159 lb 12.8 oz) 02/11/2019 1:12 PM CDT Weight 157.5 cm (5' 2") 02/11/2019 1:12 PM CDT Height 29.23 02/11/2019 1:12 PM CDT Body Mass Index documented in this encounter Patient Instructions * Patient Instructions* Bogn Camejo MD - 02/11/2019 1:00 PM CDT Specific instructions: I have ordered CT chest to be done in late June 2019 to follow up on the s pots on your lungs Start using CPAP once your cervical collar can be removed General instructions: 1. If you have not already done so, we encourage you to sign up for [employer] [facility] as i t is a secure and efficient way to contact us. 2. How to contact us: My Chart message is an efficient way to contact us for non-urgent matters. Call us at [phone]. The slip cover operator will get your information and a nurse o r physician will call you back. To send clinical records: You can scan and send as an attachment to a [employer] t message, fax to [phone] or mail it to us. Mailing address- [facility], [address], [facility], [address] [place] [facility] [place] [address] 3. To schedule appointments, call 4. To schedule CT scans, call Radiology at [phone] Thank you choosing the Pulmonary Diseases clinic at [facility]. Please let us know what we can do better by providing comments on the survey you will receive. We value your feedback! documented in this encounter Progress Notes * Bong Camejo MD - 02/11/2019 1:00 PM CDT Chief Complaint Patient presents with OBSTRUCTIVE SLEEP APNEA Chronic Obstructive Pulmonary Disease ASSESSMENT & PLAN: Obstructive sleep apnea 02/24- [facility] AHI 21.8, AASM AHI 64.7, SaO2 kirit 88%. Split night titration to CPAP 10. 03/28- Download review: Current settings: 8-15, Usage- nights, Usage > 4 hours 40% of night. Average use 4hrs & 6min. 90th percentile pressure- 13.2, max pressure- 14. AHI- 2.3. Panaca- 18 - CPAP settings are adequate. Suboptimal CPAP use. In part because she is sleepi ng on a couch in a daughter's house. Will get her own apartment in a few weeks a nd will be able to use CPAP regularly. - Panaca is 18- Insufficient sleep, poorly treated HEMANT, Meds- Zonisamide. 02/27- Unable to use CPAP since her C-spine surgery in 12/27 (has to sleep wth a h jaqueline C -collar) Restless Leg Syndrome: 02/24- PSG- "Polysomnographic pattern suggestive of Restless Leg Syndrome" 03/28- She had significant mood changes with Gabapentin. Well controlled on Requ ip 1 mg qhs. 03/29- Well controlled on Requip 1 mg qhs. Ex smoker: Quit smoking 01/22 01/24- R 86%, FVC 2.12 (73%), TLC 77%, DLCO 13.56 (54%) 12/26- 6MW- stopped at 3min because of SOB, FLEMING & dizziness- walked 195m. No desaturations 03/28- On Symbicort 160 2 puffs BID & Spiriva 1/d. Proair 1/d- not sure she needs it. Repeat PFTs (she did not get it) 03/29- she stopped all her inhalers Lung Nodules 07/03/18- Screening CT chest- 3 mm nodules seen in [facility]. Quit smoking 2013. Plan FU CT in 12 months (06/2019) HISTORY OF PRESENT ILLNESS: 58 y.o. female, disabled from depression after her in 2007. Has 3 k ids in [place]. Is presently living with one of her daughters. Ex smoker- Started smoking in her late teens- initially 1/2 to 1 ppd. In 2007, s tarted smoking 2-3 ppd. Finally quit 01/22. Pertinent Past History: DM, HTN, HLD Hypothy CAD- s/p PCI Stroke- mild left weakness Cervical fusion- 12/27 HEMANT RLS Diabetic neuropathy COPD Current Symptoms: Had C spine surgery in 12/27. Has had to wear a hard C collar for 10 weeks. Has t o wear it at night- so has not been able to use her CPAP. Had dysphagia post op- is slowly improving. LUE tingling is "60% better" Her 8-year-old granddaughter sleeps with her Bed by 8-9 pm. Takes Requip 1mg every night- really helps. Snores without CPAP. Gets up 7:30, feels rested. Panaca- 11 (last visit 18) No daytime naps She has not been using any inhalers (she had been on Symbicort 160 2 puffs BID, Spiriva 1/d & PRN Proair) Unable to walk much because of LE neuropathy REVIEW OF SYSTEMS: Constitutional: No fever, chills or night sweats. Weight no change HENT: Mild congestion and postnasal drip. Eyes: Negative. Cardiovascular: No chest pain or palpitations. Leg swelling- yes (takes Lasix) Gastrointestinal: No heartburn. No abdominal distention, nausea or vomiting Endocrine: Negative. Genitourinary: Negative. Musculoskeletal: hip pain Skin: Negative. Allergic/Immunologic: Negative. Neurological: Neuropathy legs Hematological: No bleeding Psychiatric/Behavioral: Depression- controlled PHYSICAL EXAMINATION: Vital signs: Vitals: 02/11/19 1312 BP: 118/77 BP Location: left arm Cuff Size: regular Pulse: 92 Resp: 16 Temp: 98.7 F (37.1 C) TempSrc: Oral Weight: 159 lb 12.8 oz (72.5 kg) Height: 5' 2" (1.575 m) Constitutional: Oriented to person, place, and time. HENT: Mallampati Class- IV. C-collar in place Nose- congestion Head: Normocephalic and atraumatic. Eyes: Conjunctivae are normal. Pupils are equal, round, and reactive to light. Neck: Normal range of motion. Neck supple. No JVD present. Cardiovascular: Normal rate and regular rhythm. Pulmonary/Chest: clear Abdominal: Soft. Bowel sounds are normal. Extremities- no edema Musculoskeletal: Normal range of motion. Lymphadenopathy: No cervical adenopathy. Neurological: Alert and oriented to person, place, and time. Skin: Skin is warm and dry. Psychiatric: Normal mood and affect. PAST, FAMILY & SOCIAL HISTORY: I have reviewed & updated the following historical data elements: Past Medical History: Diagnosis Date CAD (coronary artery disease) 2015 s/p PCI- Dr. Fong in [facility] DM (diabetes mellitus) HLD (hyperlipidemia) Hypothyroid Neuropathy, diabetic HEMANT on CPAP RLS (restless legs syndrome) Stroke with residual L sided weakness Past Surgical History: Procedure Laterality Date HX APPENDECTOMY HX CARPAL TUNNEL RELEASE HX CERVICAL DISCECTOMY HX CHOLECYSTECTOMY Family History Problem Relation Name Age of Onset Diabetes Mother Other (HEMANT on CPAP) Mother Diabetes Father Social History Socioeconomic History Marital status: Spouse [...] Types: Cigarettes Quit date: 01/2014 Years since quittin.0 Smokeless tobacco: Former User Quit date: 01/09/2013 Substance and Sexual Activity Alcohol use: No Drug use: No Sexual activity: Not on file Lifestyle Physical activity: Days per week: Patient refused Minutes per session: Patient refused Stress: Patient refused Relationships Social connections: Talks on phone: Patient refused Gets together: Patient refused Attends faith service: Patient refused Active member of club or organization: Patient refused Attends meetings of clubs or organizations: Patient refused Relationship status: Patient refused Intimate partner violence: Fear of current or ex partner: Patient refused Emotionally abused: Patient refused Physically abused: Patient refused Forced sexual activity: Patient refused Other Topics Concerns: Not on file Social History Narrative Right handed ALLERGIES: Allergies Allergen Reactions Gabapentin Other (See Comments) unknown CURRENT MEDICATIONS: Outpatient Encounter Medications as of 02/11/2019 Medication Sig Dispense Refill acetaminophen-codeine (TYLENOL/CODEINE #3) 300-30 MG per tablet Take 1 Tab b y mouth every 4 hours as needed. (Patient not taking: Reported on 02/11/2019) 60 T ab 0 aspirin 81 MG tablet Take 81 mg by mouth every morning. atorvastatin (LIPITOR) 40 MG tablet Take 1 Tab by mouth daily. BD PEN NEEDLE JAHAIRA U/F 32G X 4 MM MISC Use 6 times daily for insulin pens.Dx E11.9 200 Each 0 Blood Glucose Monitoring Suppl (ONE TOUCH ULTRA MINI) w/Device KIT [employer] ultra mini Glucometer kit 1 Each 0 carvedilol (COREG) 6.25 MG tablet Take 1 Tab by mouth daily as needed. fenofibrate (TRICOR) 145 MG tablet Take 1 Tab by mouth daily. 90 Tab 0 furosemide (LASIX) 20 MG tablet Take 1 Tab by mouth daily. (Patient taking d ifferently: Take 40 mg by mouth daily.) 30 Tab 2 Glucose Blood Strips (ONE TOUCH ULTRA TEST) CHECK BLOOD SUGAR 4 TIMES A DAY. ; Dx E11.9 400 Strip 3 hydrocodone-acetaminophen (NORCO) 10-325 MG per tablet Take 1 Tab by mouth 4 times daily as needed for Pain. 120 Tab 0 Insulin Glargine (TOUJEO SOLOSTAR) 300 UNIT/ML SOPN 60 units in the morning, 60 units in the evening 27 Pen 1 Insulin Lispro (HUMALOG KWIKPEN) 100 UNIT/ML SOPN Inject 60 units subcutaneo usly three times daily with meals.Please make follow up with Dr Barksdale 45 mL 2 levothyroxine (SYNTHROID) 200 MCG tablet Take 1 Tab by mouth daily. 90 Tab 1 levothyroxine (SYNTHROID) 25 MCG tablet Take 1 Tab by mouth daily. 90 Tab 1 metformin (GLUCOPHAGE) 1000 MG tablet One tablet BID 180 Tab 2 NEXIUM 40 MG capsule Take 1 Cap by mouth 2 times daily (before meals). 60 Ca p 5 ONE TOUCH ULTRA TEST CHECK BLOOD SUGAR 3 TO 4 TIMES A DAY 100 Strip 3 ONETOUCH DELICA LANCETS 33G MISC Use one lancet to check blood glucose 4x da dona.; Dx E11.9 400 Each 3 potassium chloride SA (K-DUR, KLOR-CON M20) 20 MEQ tablet Take 1 Tab by mout h daily. pregabalin (LYRICA) 50 MG capsule Take 1 Cap by mouth two times daily. Take one tablet every night at bedtime for three days, then twice a day . 60 Cap 0 ropinirole (REQUIP) 1 MG tablet Take 1 Tab by mouth nightly. 90 Tab 3 sertraline (ZOLOFT) 100 MG tablet Take 100 mg by mouth two times daily. zonisamide (ZONEGRAN) 100 MG capsule Take 3 Caps by mouth nightly. Take 2 ca ps by mouth nightly for 2 weeks then increase to 3 caps by mouth nightly. 90 Cap 3 zonisamide (ZONEGRAN) 100 MG capsule Take 3 Caps by mouth nightly. Take 2 ca ps by mouth nightly for 2 weeks then increase to 3 caps by mouth nightly. 90 Cap 3 No facility-administered encounter medications on file as of 02/11/2019. documented in this encounter Plan of Treatment Care Team Description Date Type Specialty Navdeep Gonzales MD [address] [facility] [address] [place] [address] [phone] 03/10/2019 Office Visit Neurosurgery Anhtony Meadows MD [address] [facility] [address] [place] [address] [phone] 04/08/2019 Office Visit Gastroenterology Order Schedule Name Type Priority Associated Diagnoses Expected: 07/03/2019 (Approximate), Expires: 09/12/2019 CT CHEST WO CONTRAST Imaging Routine Lung nodules Ordered: 02/11/2019 PAP SUPPLIES General Supply Routine HEMANT (obstructive sleep apnea) Health Maintenance Due Date Last Done Comments [...] filedocumented in this encounter Visit Diagnoses Diagnosis HEMANT (obstructive sleep apnea) - Primary Obstructive sleep apnea (adult) (pediatric) RLS (restless legs syndrome) Restless legs syndrome (RLS) Lung nodules Other nonspecific abnormal finding of lung field documented in this encounter Insurance Type Payer Benefit Subscriber ID Effective Phone Address Plan / Dates Group Medicaid [employer] xxxxxxxxx 2013-P [address] [place] [id number] [place] [address] documented as of this encounter
--- OUTSIDE RECORDS SUMMARY | 2019-09-08 14:45 | XMS REPORT | Summary of Care ---
Author Author [facility] Organization [facility] Address Unknown Phone Unavailable Care Team Providers Care Crystalizer Name Role Phone Joey Clark MD [employer] [employer] [phone] Reason for Visit * Reason Comments Follow Up Encounter Details Care Team Description Date Type Department Anthony Meadows MD [address] [place] [address] Follow Up 07/15/2019 Office Visit [facility] Gastroenterology [address] 8th Floor, [address] [place] [address] Allergies Comments Active Allergy Reactions Severity Noted Date Mood changes Gabapentin Other (See Medium 08/07/2018 Comments) documented as of this encounter (statuses as of 08/08/2019) Medications End Date Status Medication Sig Dispensed Refills Start Date Active aspirin 81 MG tablet Take 81 mg by 0 mouth every morning. Active furosemide (LASIX) 20 MG Take 1 Tab by 30 Tab 2 tabletIndications: mouth daily. 6 Unspecified hypothyroidism, Dyslipidemia, Uncontrolled type 2 diabetes mellitus with insulin therapy (HCCode), Elevated liver enzymes Additional Information Patient taking differently: 40 mg ORAL DAILY, Reason: Discontinued by other provider, Informant: Self, Reported on 02/28/2017 11:04 AM Active sertraline (ZOLOFT) 100 Take 100 mg 0 MG tablet by mouth two times daily. Active potassium chloride SA Take 1 Tab by 0 (K-DUR, KLOR-CON M20) 20 mouth daily. 8 MEQ tablet Active carvedilol (COREG) 6.25 Take 1 Tab by 0 MG tablet mouth daily 8 as needed. Active ropinirole (REQUIP) 1 MG Take 1 Tab by 90 Tab 3 tablet mouth 9 nightly. Active levothyroxine (SYNTHROID) Take 1 Tab by 90 Tab 1 200 MCG mouth daily. 9 tabletIndications: Hypothyroidism Active metformin (GLUCOPHAGE) One tablet 180 Tab 2 1000 MG tablet BID 9 Active methocarbamol (ROBAXIN) Take 1 Tab by 90 Tab 0 500 MG tablet mouth four 9 times daily. Active HUMALOG KWIKPEN 100 Inject 60 45 mL 2 UNIT/ML SOPNIndications: Units into 9 Type 2 diabetes mellitus the skin 3 with insulin therapy times daily (HCCode) (before meals). Inject 60 units subcutaneousl y three times daily with meals. Active Insulin Glargine, 1 Unit Inject 70 15 Pen 2 Dial, 300 UNIT/ML SOPN Units into 9 the skin 2 times daily (with meals). Active levothyroxine (SYNTHROID) Take 1 Tab by 90 Tab 1 25 MCG tablet mouth daily. 9 Active zonisamide (ZONEGRAN) 100 Take 3 Caps 90 Cap 3 MG capsule by mouth 0 nightly. Take 2 caps by mouth nightly for 2 weeks then increase to 3 caps by mouth nightly. Active fenofibrate (TRICOR) 145 Take 1 Tab by 90 Tab 0 MG tablet mouth daily. 0 Active pantoprazole (PROTONIX) TAKE 1 TABLET 60 Tab 5 40 MG tablet BY MOUTH AT 0 6AM AND 4PM (INS LIMITS 1 DAILY) Active Misc. Devices KIT Equipment: 4 1 Each 0 wheeled 0 walker with basket and seat Diagnosis: gait difficulty 07/15/2019 Discontinued (Reorder) NEXIUM 40 MG capsule Take 1 Cap by 180 Cap 1 mouth 2 times 9 daily (before meals). 07/15/2019 Discontinued (*Therapy completed) omeprazole (PRILOSEC) 40 Take 1 Cap by 60 Cap 5 MG capsule mouth two 9 times daily. 07/27/2019 atorvastatin (LIPITOR) 80 Take 1 Tab by 90 Tab 3 MG tablet mouth daily 9 for 90 days. 07/15/2019 Discontinued (*Therapy completed) dicyclomine (BENTYL) 10 Take 1 Cap by 120 Cap 6 MG capsule mouth 4 times 9 daily (before meals and nightly). 07/15/2019 Discontinued (*Therapy completed) Blood Glucose Monitoring Check glucose 1 Kit 0 Suppl (TRUE METRIX METER) 3x daily; Dx 0 w/Device KIT 07/22/2019 Discontinued Glucose Blood Strips Check glucose 300 Each 10 (TRUE METRIX BLOOD 3x daily; Dx 0 GLUCOSE TEST) E11.65 07/15/2019 Discontinued (*Therapy completed) BD PEN NEEDLE JAHAIRA U/F Use 6 times 600 Each 32G X 4 MM daily for 0 MISCIndications: Type 2 insulin diabetes mellitus with pens.Dx E11.9 [facility] 07/15/2019 Discontinued (*Therapy completed) hydrocodone-acetaminophen Take 1 Tab by 120 Tab 0 (NORCO) 10-325 MG per mouth every 6 0 tablet hours as needed for Pain. 07/15/2019 Discontinued (*Therapy completed) esomeprazole (NEXIUM) 40 Take 1 Cap by 180 Cap 3 MG capsule mouth 2 times 0 daily (before meals). documented as of this encounter (statuses as of 08/08/2019) Active Problems Problem Noted Date Insulin dependent type 2 diabetes mellitus [facility] 07/30/2018 Neuropathy, diabetic [facility] 07/17/2018 History of stroke 07/17/2018 Neuropathy 05/27/2018 Sensorineural hearing loss (SNHL) of both ears 11/20/2017 Bilateral temporomandibular joint pain 11/20/2017 HEMANT (obstructive sleep apnea) 03/09/2016 Overview: AHI 21.8,sat kirit 88% Auto-CPAP 10-14 cm Diabetes mellitus (HCCode) 10/14/2014 Hypothyroidism 07/16/2014 RLS (restless legs syndrome) Stroke [facility] Overview: with residual L sided weakness HLD (hyperlipidemia) Depression HEMANT on CPAP documented as of this encounter (statuses as of 08/08/2019) Immunizations Name Administration Dates Next Due Influenza [...] Signs Reading Time Taken Comments Vital Sign 116/6 07/15/2019 10:10 AM GARMENT PATTERNMAKER Blood Pressure 74 07/15/2019 10:10 AM GARMENT PATTERNMAKER Pulse 36.7 C (98.1 F) 07/15/2019 10:10 AM GARMENT PATTERNMAKER Temperature - - Respiratory Rate - - Oxygen Saturation - - Inhaled Oxygen Concentration 73.1 kg (161 lb 3.2 oz) 07/15/2019 10:10 AM GARMENT PATTERNMAKER Weight 157.5 cm (5' 2") 07/15/2019 10:10 AM GARMENT PATTERNMAKER Height 29.48 07/15/2019 10:10 AM GARMENT PATTERNMAKER Body Mass Index documented in this encounter Progress Notes * Anthony Meadows MD - 07/15/2019 10:30 AM GARMENT PATTERNMAKER Gastroenterology Clinic Note Reason for referral: Referring physician: No ref. provider found HPI: 58 y.o. year old patient presents to the GI clinic for evaluation of acid r eflux, diffuse abdominal pain, gas and bloating sensation. The symptoms are aggravated by meals, especially fatty and spicy food. She felt better when was taking Nexium. However, her insurance company refused to pay for Nexium and the patient was started on pantoprazole which does not work as well. Alternating diarrhea and constipation. H/o abnormal gastric emptying scan (prolonged emptying half-time to 103 minutes) , DM. She can not recall when was her last colonoscopy. Patient denies GI bleeding, weight loss. No history of PUD. No vascular grafts in abdomen. There is no FH of colon polyps or colon cancer. No FH of Liver disease. No pancreatic cancer in family. Does not smoke. Does not drink. PMH/PSH: Past Medical History: Diagnosis Date CAD (coronary artery disease) 2015 s/p PCI- Dr. Fong in [facility] DM (diabetes mellitus) (HCCode) HLD (hyperlipidemia) Hypothyroid Neuropathy, diabetic (HCCode) HEMANT on CPAP RLS (restless legs syndrome) Stroke (HCCode) with residual L sided weakness Past Surgical History: Procedure Laterality Date HX APPENDECTOMY HX CARPAL TUNNEL RELEASE HX CERVICAL DISCECTOMY HX CHOLECYSTECTOMY Allergies: Allergies Allergen Reactions Gabapentin Other (See Comments) Mood changes Medications: Outpatient Medications Prior to Visit Medication Sig Dispense Refill aspirin Take 81 mg by mouth every morning. atorvastatin Take 1 Tab by mouth daily for 90 days. 90 Tab 3 BD PEN NEEDLE JAHAIRA U/F Use 6 times daily for insulin pens.Dx E11.9 600 Each 10 TRUE METRIX METER Check glucose 3x daily; Dx 1 Kit 0 carvedilol Take 1 Tab by mouth daily as needed. dicyclomine Take 1 Cap by mouth 4 times daily (before meals and nightly). 12 0 Cap 6 fenofibrate Take 1 Tab by mouth daily. 90 Tab 0 furosemide Take 1 Tab by mouth daily. (Patient taking differently: Take 40 m g by mouth daily.) 30 Tab 2 Glucose Blood Strips Check glucose 3x daily; Dx E11.65 300 Each 10 HUMALOG KWIKPEN Inject 60 Units into the skin 3 times daily (before meals). Inject 60 units subcutaneously three times daily with meals. 45 mL 2 hydrocodone-acetaminophen Take 1 Tab by mouth every 6 hours as needed for Pa in. 120 Tab 0 Insulin Glargine (1 Unit Dial) Inject 70 Units into the skin 2 times daily ( with meals). 15 Pen 2 levothyroxine Take 1 Tab by mouth daily. 90 Tab 1 levothyroxine Take 1 Tab by mouth daily. 90 Tab 1 metformin One tablet BID 180 Tab 2 methocarbamol Take 1 Tab by mouth four times daily. 90 Tab 0 Misc. Devices Equipment: 4 wheeled walker with basket and seat Diagnosis: gait difficulty 1 Each 0 NEXIUM Take 1 Cap by mouth 2 times daily (before meals). 180 Cap 1 omeprazole Take 1 Cap by mouth two times daily. 60 Cap 5 pantoprazole TAKE 1 TABLET BY MOUTH AT 6AM AND 4PM (INS LIMITS 1 DAILY) 60 T ab 5 potassium chloride SA Take 1 Tab by mouth daily. ropinirole Take 1 Tab by mouth nightly. 90 Tab 3 sertraline Take 100 mg by mouth two times daily. zonisamide Take 3 Caps by mouth nightly. Take 2 caps by mouth nightly for 2 weeks then increase to 3 caps by mouth nightly. 90 Cap 3 No facility-administered medications prior to visit. Social Hx: reports that she quit smoking about 5 years ago. Her smoking use included cigar ettes. She has a 62.00 pack-year smoking history. She quit smokeless tobacco use about 6 years ago. She reports that she does [...] Types: Cigarettes Quit date: 01/2014 Years since quittin.5 Smokeless tobacco: Former User Quit date: 01/09/2013 Substance and Sexual Activity Alcohol use: No Drug use: No Sexual activity: Not on file Lifestyle Physical activity: Days per week: Patient refused Minutes per session: Patient refused Stress: Patient refused Relationships Social connections: Talks on phone: Patient refused Gets together: Patient refused Attends taoism service: Patient refused Active member of club [...] are normal. No distension and no mass. Diffuse abd ominal tenderness present. No rebound and no guarding. Musculoskeletal: Normal range of motion. No edema [...] 12/04/2018 Lab Results Component Value Date NA 141 01/03/2019 K 4.5 01/03/2019 CL 106 01/03/2019 CO2 22 01/03/2019 BUN 14 01/03/2019 CREATININE 0.71 01/03/2019 Radiology: Reviewed Endoscopy: Reviewed Assessment/Plan: IBS, GERD, gastroparesis D/c pantoprazole, It is not working. start Nexium 40 mg BID Screening colonoscopy Eat small meals 5-6 times a day, last meal no later than 3-4 h before bed, avoid spicy and fatty food FODMAP diet, Align Risks and benefits of the procedure explained [...] who agrees to the plan as outlined. ENT PATTERNMAKER documented in this encounter Plan of Treatment Care Team Description Date Type Specialty 08/28/2019 Clinical Sleep Center Support Anthony Meadows MD [address] [facility] [address] [place] [address] [phone] 08/28/2019 Office Visit Gastroenterology Corky Borden Jr., MD [address] [place] [address] [phone] 09/29/2019 Office Visit Physical Medicine and Rehab Santo Barksdale MD [address] 8th Floor, [address] [place] [address] [phone] 10/23/2019 Office Visit Endocrinology Bong Camejo MD [address] [place] [address] [phone] 01/13/2020 Office Visit Pulmonology Anthony Meadows MD [address] [place] [address] [phone] 01/13/2020 Office Visit Gastroenterology Health Maintenance Due Date Last Done Comments COLON CANCER SCREENIN1961 COLONOSCOPY MAMMOGRAM ANNUAL 1961 TETANUS SHOT (ADULT) 1976 ANNUAL DIABETIC 09/25/1979 RETINOPATHY SCREENING HIV SCREENING 09/25/1979 CERVICAL CANCER SCREENING 1982 3 YEAR FOLLOW UP A1C TESTING EVERY 6 07/05/2019 01/02/2019, 05/27/2018, 09/04/2017, MONTHS Additional history exists ANNUAL DIABETIC FOOT EXAM 04/28/2020 04/28/2019, 05/27/2018 BMI FOLLOW UP PLAN 07/07/2020 07/07/2019 HEPATITIS C SCREENING Completed 02/23/2016 FLU VACCINE > 6 MONTHS Discontinued 03/26/2018, 06/11/2017, 09/12/2016 documented as of this encounter Results Not on filedocumented in this encounter Visit Diagnoses Diagnosis Irritable bowel syndrome with both constipation and diarrhea - Primary documented in this encounter Insurance Type Payer Benefit Subscriber ID Effective Phone Address Plan / Dates Group Medicaid [employer] xxxxxxxxx 2013-P [address] [place] [id number] [place] [address] documented as of this encounter
--- OUTSIDE RECORDS SUMMARY | 2019-09-08 14:45 | XMS REPORT | Summary of Care ---
Author Author [facility] Organization [facility] Address Unknown Phone Unavailable Care Team Providers Care Meat Pumper Name Role Phone Joey Clark MD [facility] [employer] [phone] Reason for Visit * Reason Comments OBSTRUCTIVE SLEEP APNEA Encounter Details Care Team Description Date Type Department Bong Camejo MD [address] [place] [address] OBSTRUCTIVE SLEEP APNEA 07/15/2019 Office Visit [facility] Pulmonary [address] 8[address] Floor; [address] [place] [address] Allergies Comments Active Allergy Reactions Severity Noted Date Mood changes Gabapentin Other (See Medium 08/07/2018 Comments) documented as of this encounter (statuses as of 07/17/2019) Medications End Date Status Medication Sig Dispensed [...] MG tablet mouth four 9 times daily. 07/27/2019 Active atorvastatin (LIPITOR) 80 Take 1 Tab by 90 Tab 3 MG tablet mouth daily 9 for 90 days. Active HUMALOG KWIKPEN 100 Inject 60 45 [...] 0 MG tablet mouth daily. 0 Active Glucose Blood Strips Check glucose 300 Each 10 (TRUE METRIX BLOOD 3x daily; Dx 0 GLUCOSE TEST) E11.65 Active pantoprazole (PROTONIX) TAKE 1 TABLET 60 [...] MG capsule mouth two 9 times daily. 07/15/2019 Discontinued (*Therapy completed) dicyclomine (BENTYL) 10 Take 1 Cap by 120 Cap 6 MG capsule mouth 4 times 9 daily (before meals and nightly). 07/15/2019 Discontinued (*Therapy completed) Blood Glucose Monitoring Check glucose 1 Kit 0 Suppl (TRUE METRIX METER) 3x daily; Dx 0 w/Device KIT 07/15/2019 Discontinued (*Therapy completed) BD PEN NEEDLE JAHAIRA U/F Use 6 times 600 Each 10 32G X 4 MM daily for 0 MISCIndications: Type 2 insulin diabetes mellitus with pens.Dx E11.9 [facility] 07/15/2019 Discontinued (*Therapy completed) hydrocodone-acetaminophen Take 1 Tab by 120 Tab 0 (NORCO) 10-325 MG per mouth every 6 0 tablet hours as needed for Pain. documented as of this encounter (statuses as of 07/17/2019) Active Problems Problem Noted Date Insulin dependent type 2 diabetes mellitus [facility]) 07/30/2018 Neuropathy, diabetic [facility]) 07/17/2018 History of stroke 07/17/2018 Neuropathy 05/27/2018 Sensorineural hearing loss (SNHL) of both ears 11/20/2017 Bilateral temporomandibular joint pain 11/20/2017 HEMANT (obstructive sleep apnea) 03/09/2016 Overview: AHI 21.8,sat kirit 88% Auto-CPAP 10-14 cm Diabetes mellitus [facility]) 10/14/2014 Hypothyroidism 07/16/2014 RLS (restless legs syndrome) [facility]roke [facility] Overview: with residual L sided weakness HLD (hyperlipidemia) Depression HEMANT on CPAP documented as of this encounter (statuses as of 07/17/2019) Immunizations Name Administration Dates Next Due Influenza [...] Signs Reading Time Taken Comments Vital Sign 116/68 07/15/2019 11:55 AM DIETIST Blood Pressure 76 07/15/2019 11:55 AM DIETIST Pulse 36.7 C (98.1 F) 07/15/2019 11:55 AM DIETIST Temperature 16 07/15/2019 11:55 AM DIETIST Respiratory Rate - - Oxygen Saturation - - Inhaled Oxygen Concentration 73 kg (161 lb) 07/15/2019 11:55 AM DIETIST Weight 157.5 cm (5' 2") 07/15/2019 11:55 AM DIETIST Height 29.45 07/15/2019 11:55 AM DIETIST Body Mass Index documented in this encounter Patient Instructions * Patient Instructions* Bong Camejo MD - 07/15/2019 10:00 AM DIETIST Specific instructions: 1. Use your CPAP every night. 2. Bring your CPAP machine in so we can download information. 3. Take Ropinirole 90 minutes before sleep time Here are some helpful general instructions: 1. If you have not already done so, we encourage you to sign up for [employer] as i Pretty in my Pocket (PRIMP) is a secure and efficient way to contact us. 2. How to contact us: My Chart message is an efficient way to contact us for non-urgent matters. Call us at [phone]. To send clinical records: You can scan and send as an attachment to a [employer] t message, fax to [phone] or mail it to us. Mailing address- [facility], [address], [facility], [address] [place] [id number] 3. To schedule appointments: Stop by the front end web designer Call . You can now make your own appointment online. Log on to [employer] website or us e the [employer] derek. Pick 'Appointments' and then 'Schedule an Appointment' (NOT 'REQUEST an Appointment') and choose your visit type, then select date interval. Thank you choosing the Sleep Clinic at [facility]. Please let us know what we can do better by providing comments on the survey you will receive. We value your feedback! IST documented in this encounter Progress Notes * Bong Camejo MD - 07/15/2019 10:00 AM DIETIST Chief Complaint Patient presents with OBSTRUCTIVE SLEEP APNEA ASSESSMENT & PLAN: Obstructive sleep apnea 02/24- [facility] AHI 21.8, [facility] AHI 64.7, SaO2 kirit 88%. Split night titration to CPAP 10. 03/28- Download review: Current settings: 8-15, Usage- nights, Usage > 4 hours 40% of night. Average use 4hrs & 6min. 90th percentile pressure- 13.2, max pressure- 14. AHI- 2.3. [place]- 18 - CPAP settings are adequate. Suboptimal CPAP use. In part because she is sleepi ng on a couch in a daughter's house. Will get her own apartment in a few weeks a nd will be able to use CPAP regularly. - [place] is 18- Insufficient sleep, poorly treated HEMANT, Meds- Zonisamide. 02/27- Unable to use CPAP since her C-spine surgery in 12/27 (has to sleep wth a h jaqueline C -collar) 07/31- Reports that she is using CPAP every night. On wireless download- last lona a is from 02/27. She did not bring her device today. Plan: She will bring her device for download next month when she comes to see GI here Restless Leg Syndrome: 02/24- PSG- "Polysomnographic pattern suggestive of Restless Leg Syndrome" 03/28- She had significant mood changes with Gabapentin. Well controlled on Requ ip 1 mg qhs. 03/29- Well controlled on Requip 1 mg qhs. 07/31- Well controlled on Requip 1 mg qhs. Take 90 minutes before sleep time Ex smoker: Quit smoking 01/22 01/24- R [...] Plan FU CT in 12 months (06/2019) 04/29- No change from 06/29 - Next screening CT due 04/30 HISTORY OF PRESENT ILLNESS: 58 y.o. female, disabled from depression after her in 2007. Has 3 k ids in [place]. Is presently living with one of her [...] t o wear it at night- so had not been able to use her CPAP. Restarted CPAP 4 months ago Bed by 8 pm. Takes Requip 1mg every night around 7:30 pm- really helps with RLS. Her 9-year-old granddaughter sleeps with her. She shuts of the lights at 8 pm, b ut has trouble falling asleep, she thinks she falls asleep around 89 or 9:30 pm Mask- FFM Awakenings- 2-4/night Wake time- 7:30 AM Rested upon awakening- "still tired" Nasal congestion- mild [place]- 11 (last visit 18) Benefit perceived from CPAP- "I dont snore and throat does not get dry" Caffeine intake- 1 Alcohol- none Weight- stable Exercise limited by knee pain and leg tingling REVIEW OF SYSTEMS: Constitutional: No fever, chills [...] Depression- controlled PHYSICAL EXAMINATION: Vital signs: Vitals: 07/15/19 1155 BP: 116/68 BP Location: left arm Patient Position: Sitting Cuff Size: regular Pulse: 76 Resp: 16 Temp: 98.1 F (36.7 C) TempSrc: Oral Weight: 161 lb (73 kg) Height: 5' 2" (1.575 m) Constitutional: [...] disease) 2015 s/p PCI- Dr. Fong in [facility] DM (diabetes mellitus) (HCCode) HLD (hyperlipidemia) Hypothyroid [...] Patient refused Gets together: Patient refused Attends jainism service: Patient refused Active member of club [...] Reactions Gabapentin Other (See Comments) Mood changes CURRENT MEDICATIONS: Outpatient Encounter Medications as of 07/15/2019 Medication Sig Dispense Refill aspirin 81 MG tablet Take 81 mg by mouth every morning. atorvastatin (LIPITOR) 80 MG tablet Take 1 Tab by mouth daily for 90 days. 9 0 Tab 3 [DISCONTINUED] BD PEN NEEDLE JAHAIRA U/F 32G X 4 MM MISC Use 6 times daily for insulin pens.Dx E11.9 600 Each 10 [DISCONTINUED] Blood Glucose Monitoring Suppl (TRUE METRIX METER) w/Device K IT Check glucose 3x daily; Dx 1 Kit 0 carvedilol (COREG) 6.25 MG tablet Take 1 Tab by mouth daily as needed. [DISCONTINUED] dicyclomine (BENTYL) 10 MG capsule Take 1 Cap by mouth 4 time s daily (before meals and nightly). 120 Cap 6 fenofibrate (TRICOR) 145 MG tablet Take 1 Tab by mouth daily. 90 Tab 0 furosemide (LASIX) 20 MG tablet Take 1 Tab by mouth daily. (Patient taking d ifferently: Take 40 mg by mouth daily.) 30 Tab 2 Glucose Blood Strips (TRUE METRIX BLOOD GLUCOSE TEST) Check glucose 3x daily ; Dx E11.65 300 Each 10 HUMALOG KWIKPEN 100 UNIT/ML SOPN Inject 60 Units into the skin 3 times daily (before meals). Inject 60 units subcutaneously three times daily with meals. 45 mL 2 [DISCONTINUED] hydrocodone-acetaminophen (NORCO) 10-325 MG per tablet Take 1 Tab by mouth every 6 hours as needed for Pain. 120 Tab 0 Insulin Glargine, 1 Unit Dial, 300 UNIT/ML SOPN Inject 70 Units into the ski n 2 times daily (with meals). 15 Pen 2 levothyroxine (SYNTHROID) 200 MCG tablet Take 1 Tab by mouth daily. 90 Tab 1 levothyroxine (SYNTHROID) 25 MCG tablet Take 1 Tab by mouth daily. 90 Tab 1 metformin (GLUCOPHAGE) 1000 MG tablet One tablet BID 180 Tab 2 methocarbamol (ROBAXIN) 500 MG tablet Take 1 Tab by mouth four times daily. 90 Tab 0 Misc. Devices KIT Equipment: 4 wheeled walker with basket and seat Diagnosis: gait difficulty 1 Each 0 [DISCONTINUED] NEXIUM 40 MG capsule Take 1 Cap by mouth 2 times daily (befor e meals). 180 Cap 1 [DISCONTINUED] omeprazole (PRILOSEC) 40 MG capsule Take 1 Cap by mouth two t imes daily. 60 Cap 5 pantoprazole (PROTONIX) 40 MG tablet TAKE 1 TABLET BY MOUTH AT 6AM AND 4PM ( INS LIMITS 1 DAILY) 60 Tab 5 potassium chloride SA (K-DUR, KLOR-CON M20) 20 MEQ tablet Take 1 Tab by mout h daily. ropinirole (REQUIP) 1 MG tablet Take 1 [...] facility-administered encounter medications on file as of 07/15/2019. IST documented in this encounter Plan of Treatment Care Team Description Date Type Specialty 08/28/2019 Clinical Sleep Center Support Anthony Meadows MD [address] [facility] [address] [place] [address] 08/28/2019 Office Visit Gastroenterology Santo Barksdale MD [address] [facility] 8th Floor, [address] [place] [address] 09/03/2019 Office Visit Endocrinology Corky Borden Jr., MD [address] [facility] [address] [place] [address] 09/29/2019 Office Visit Physical Medicine and Rehab Santo Barksdale MD [address] [facility] 8th Floor, [address] [place] [address] [phone] 10/23/2019 Office Visit Endocrinology Bong Camejo MD [address] [facility] [address] [place] [address] [phone] 01/13/2020 Office Visit Pulmonology Anthony Meadows MD [address] [facility] [address] [place] [address] [phone] 01/13/2020 Office Visit Gastroenterology Health Maintenance Due [...] xxxxxxxxx 2013-P [address] [place] [id number] [place] [address] documented as of this encounter
--- OUTSIDE RECORDS SUMMARY | 2019-09-08 14:45 | XMS REPORT | Summary of Care ---
Author Author [facility] Organization [facility] Address Unknown Phone Unavailable Care Team Providers Care Change Attendant Name Role Phone Joey Clark MD [employer] [employer] 34 Reason for Visit * Reason Comments Post-op Follow-up Encounter Details Care Team Description Date Type Department Navdeep Gonzales MD [address] [place] [address] Post-op Follow-up 03/10/2019 Office Visit [facility] Neurosurgery [address], [address] [place] [address] Allergies Comments Active Allergy Reactions Severity Noted Date Mood changes Gabapentin Other (See Medium 08/07/2018 Comments) documented as of this encounter (statuses as of 03/14/2019) Medications End Date Status Medication Sig Dispensed Refills Start Date Active aspirin 81 MG tablet Take 81 mg by 0 mouth every morning. Active furosemide (LASIX) 20 MG Take 1 Tab by 30 Tab 2 tabletIndications: mouth daily. 6 Unspecified hypothyroidism, Dyslipidemia, Uncontrolled type 2 diabetes mellitus with insulin therapy (HCCode), Elevated liver enzymes Active sertraline (ZOLOFT) 100 [...] diabetes mellitus with pens.Dx E11.9 insulin therapy [facility] Active fenofibrate (TRICOR) 145 Take 1 Tab by 90 Tab 0 MG tablet mouth daily. 9 Active Insulin Glargine (TOUJEO 60 units in 27 Pen 1 SOLOSTAR) 300 UNIT/ML the morning, 9 SOPNIndications: Type 2 60 units in diabetes mellitus with the evening insulin therapy [facility]) Active levothyroxine (SYNTHROID) Take 1 Tab by 90 Tab 1 200 MCG mouth daily. 9 tabletIndications: Hypothyroidism Active levothyroxine (SYNTHROID) Take 1 Tab by 90 Tab 1 25 MCG tablet mouth daily. 9 Active metformin (GLUCOPHAGE) One tablet 180 Tab 2 1000 MG tablet BID 9 Active Insulin Lispro (HUMALOG Inject 60 45 mL 2 KWIKPEN) 100 UNIT/ML units 9 SOPNIndications: Type 2 subcutaneousl diabetes mellitus with y three times insulin therapy ([facility]) daily with meals.Please make follow up with Dr Barksdale Active Glucometer Dispense 1 Each 0 brand covered 9 by insurance for pt to check blood glucose 3x daily Active Lancets MISC Dispense 300 Each 3 brand covered 9 by insurance for pt to check blood glucose 3x daily Active hydrocodone-acetaminophen Take 1 Tab by 120 Tab 0 (NORCO) 10-325 MG per mouth every 6 9 tablet hours as needed for Pain. Active methocarbamol (ROBAXIN) Take 1 Tab by 90 Tab 0 500 MG tablet mouth four 9 times daily. 03/10/2019 Discontinued acetaminophen-codeine Take 1 Tab by 60 Tab 0 (TYLENOL/CODEINE #3) mouth every 4 9 300-30 MG per tablet hours as needed. 03/10/2019 Discontinued NEXIUM 40 MG capsule Take 1 Cap by 60 Cap 5 mouth 2 times 9 daily (before meals). 03/10/2019 Discontinued Glucose Blood Strips Dispense 300 Strip 3 (GLUCOSE METER TEST) brand covered 9 by insurance for pt to check blood glucose 3x daily. documented as of this encounter (statuses as of 03/14/2019) Active Problems Problem Noted Date Insulin dependent type 2 diabetes mellitus [facility]) 07/30/2018 Neuropathy, diabetic [facility]) 07/17/2018 History of stroke 07/17/2018 Neuropathy 05/27/2018 Sensorineural hearing loss (SNHL) of both ears 11/20/2017 Bilateral temporomandibular joint pain 11/20/2017 HEMANT (obstructive sleep apnea) 03/09/2016 Overview: AHI 21.8,sat kirit 88% Auto-CPAP 10-14 cm Diabetes mellitus (HCCode) 10/14/2014 Unspecified hypothyroidism 07/16/2014 RLS (restless legs syndrome) Stroke [facility]) Overview: with residual L sided weakness HLD (hyperlipidemia) Depression HEMANT on CPAP documented as of this encounter (statuses as of 03/14/2019) Immunizations Name Administration Dates Next Due Influenza [...] Signs Reading Time Taken Comments Vital Sign 111/67 03/10/2019 2:47 PM CDT Blood Pressure 81 03/10/2019 2:47 PM CDT Pulse - - Temperature 18 03/10/2019 2:47 PM CDT Respiratory Rate - - Oxygen Saturation - - Inhaled Oxygen Concentration 72.1 kg (159 lb) 03/10/2019 2:47 PM CDT Weight 157.5 cm (5' 2") 03/10/2019 2:47 PM CDT Height 29.08 03/10/2019 2:47 PM CDT Body Mass Index documented in this encounter Progress Notes * Navdeep Gonzales MD - 03/10/2019 2:45 PM CDT Reason for visit: Post op visit. I had the pleasure of seeing Ms. Flower at the neurosurgery clinic. The patie nt is a 58 y.o. female, about 3 months post op, who underwent removal of C4/5 pl ate, C3-4 and C5-7 ACDF, and redo anterior fixation C3-C7 on 12/19/18 for cervica l disc herniations, cervical radiculopathy, and cervical myelopathy. She remains with paraspinal neck pain and soreness. She continues to wear her As pen collar. Her pain makes it difficult to sleep at night. Her sensation at her fingers have improved. She takes L[place] 10/325 for pain prescribed by Dr. Borden. H er dysphagia has also improved. Patient returns for follow up to discuss their p rogress. CURRENT MEDICATIONS: Current Outpatient Medications Medication Sig Dispense Refill aspirin 81 MG tablet Take 81 mg by mouth every morning. atorvastatin (LIPITOR) 40 MG tablet Take 1 Tab by mouth daily. BD PEN NEEDLE JAHAIRA U/F 32G X 4 MM MISC Use 6 times daily for insulin pens.Dx E11.9 200 Each 0 carvedilol (COREG) 6.25 MG tablet Take 1 Tab by mouth daily as needed. fenofibrate (TRICOR) 145 MG tablet Take 1 Tab by mouth daily. 90 Tab 0 furosemide (LASIX) 20 MG tablet Take 1 Tab by mouth daily. (Patient taking d ifferently: Take 40 mg by mouth daily.) 30 Tab 2 Glucometer Dispense brand covered by insurance for pt to check blood glucose 3x daily 1 Each 0 hydrocodone-acetaminophen (NORCO) 10-325 MG per tablet Take 1 Tab by mouth e very 6 hours as needed for Pain. 120 Tab 0 Insulin Glargine (TOUJEO SOLOSTAR) 300 UNIT/ML SOPN 60 units in the morning, 60 units in the evening 27 Pen 1 Insulin Lispro (HUMALOG KWIKPEN) 100 UNIT/ML SOPN Inject 60 units subcutaneo usly three times daily with meals.Please make follow up with Dr Barksdale 45 mL 2 Lancets [facility] Dispense brand covered by insurance for pt to check blood gluco se 3x daily 300 Each 3 levothyroxine (SYNTHROID) 200 MCG tablet Take 1 Tab by mouth daily. 90 Tab 1 levothyroxine (SYNTHROID) 25 MCG tablet Take 1 Tab by mouth daily. 90 Tab 1 metformin (GLUCOPHAGE) 1000 MG tablet One tablet BID 180 Tab 2 methocarbamol (ROBAXIN) 500 MG tablet Take 1 Tab by mouth four times daily. 90 Tab 0 potassium chloride SA (K-DUR, KLOR-CON M20) 20 [...] by mouth nightly. 90 Cap 3 No current facility-administered medications for this visit. REVIEW OF SYSTEMS: General ROS: negative for - chills, hot flashes, malaise or night sweats Respiratory ROS: no cough, shortness of breath, or wheezing Cardiovascular ROS: no chest pain or dyspnea on exertion Musculoskeletal ROS:+neck pain negative for - joint stiffness, joint swelling or muscular weakness Neurological ROS:+numbness negative for - bowel and bladder control changes, con fusion, seizures or visual changes PHYSICAL EXAM: Vitals: 03/10/19 1447 BP: 111/67 Pulse: 81 Resp: 18 Weight: 159 lb (72.1 kg) Height: 5' 2" (1.575 m) Patient is oriented to person, place and time. CN 2-12 are grossly intact bilaterally Motor exam: UE D B T WF WE IM Rt 5/5 5/5 5/5 5/5 5/5 5/5 Lt 5/5 5/5 5/5 5/5 5/5 5/5 LE: IP KE KF DF PF EHL Rt 5/5 5/5 5/5 5/5 5/5 5/5 Lt 5/5 5/5 5/5 5/5 5/5 5/5 Sensory exam : intact to light touch DTR: 2+ throughout Incision: Anterior cervical incision healing well without drainage, erythema, or edema. Cervical spine X-rays ([facility]) dated 03/10/19: surgical hardware is intact an d in good alignment without evidence of failure or loosening. There is evidence of early fusion. DIAGNOSIS: Encounter Diagnosis and Orders ICD-10-CM 1. S/P cervical spinal fusion Z98.1 2. Cervicalgia M54.2 ASSESSMENT/PLAN: Ms. Gavi Flower is a pleasant 58 y.o. female, about 3 months post op, who underwent removal of C4/5 plate, C3-4 and C5-7 ACDF, and redo anterior fixa tion C3-C7 on 12/19/18 for cervical disc herniations, cervical radiculopathy, and cervical myelopathy. Patient is doing well overall and is informed the neck pain should continue to improve with time. X-rays reveal the surgical hardware is in good alignment and there is evidence of early fusion. She is instructed to begin to wean out of the collar. We discussed the surgical procedure performed and expected post operative course. We will see Gavi Flower for follow u p in 3 months (No X-rays needed at that time). Navdeep Gonzales MD [employer]ellite [employer] Department of Neurosurgery [facility] documented in this encounter Plan of Treatment Care Team Description Date Type Specialty Galdino Camacho MD [address] [facility] [address] [place] [address] 03/19/2019 Office Visit Physical Medicine and Rehab Anthony Meadows MD [address] [facility] [address] [place] [address] 04/08/2019 Office Visit Gastroenterology Corky Borden Jr., MD [address] [facility] [address] [place] [address] 05/05/2019 Office Visit Physical Medicine and Rehab Navdeep Gonzales MD [address] [place] [address] [phone] 06/09/2019 Office Visit Neurosurgery Bong Camejo MD [address] [facility] [address] [place] [address] [phone] 07/15/2019 Office Visit Pulmonology Health Maintenance Due Date [...] filedocumented in this encounter Visit Diagnoses Diagnosis S/P cervical spinal fusion - Primary Arthrodesis status Cervicalgia documented in this encounter Insurance Type Payer Benefit Subscriber ID Effective Phone Address Plan / Dates Group Medicaid [employer] xxxxxxxxx 2013-P [address] [place] [id number] [place] [address] documented as of this encounter
--- OUTSIDE RECORDS SUMMARY | 2019-09-08 14:45 | XMS REPORT | Summary of Care ---
Author Author [facility] Organization [facility] Address Unknown Phone Unavailable Care Team Providers Care Briquette Machine Operator Name Role Phone Joey Clark MD [employer], [employer] 34 Reason for Referral * (Routine) Referred By Contact Referred To Contact Status Reason Specialty Diagnoses / Procedures Corky Borden Jr., MD [address] [place] [phone] Pending Consult, Test, and Pain Management Diagnoses Treat Chronic pain syndrome Small fiber neuropathy Muscle pain, myofascial S/P cervical spinal fusion Reason for Visit * Reason Comments Neck Pain Encounter Details Care Team Description Date Type Department Corky Borden Jr., MD [address] [place] [address] Neck Pain 03/05/2019 Office Visit [facility] Physical Medicine & Rehabilitation [address] [place] [address]. 10th [place], [place] [address] Allergies Comments Active Allergy Reactions Severity Noted Date Mood changes Gabapentin Other (See Medium 08/07/2018 Comments) documented as of this encounter (statuses as of 03/05/2019) Medications End Date Status Medication Sig Dispensed [...] diabetes mellitus with pens.Dx E11.9 [facility] Active fenofibrate (TRICOR) 145 Take 1 Tab by 90 Tab 0 MG tablet mouth daily. 9 Active Insulin Glargine (TOUJEO 60 units in 27 Pen 1 SOLOSTAR) 300 UNIT/ML the morning, 9 SOPNIndications: Type 2 60 units in diabetes mellitus with the evening insulin therapy [facility]) Active acetaminophen-codeine Take 1 Tab by 60 [...] mellitus with y three times insulin therapy [facility]) daily with meals.Please make follow up with Dr Barksdale Active Glucometer Dispense 1 Each 0 brand covered 9 by insurance for pt to check blood glucose 3x daily Active Lancets MISC Dispense 300 Each 3 brand covered 9 by insurance for pt to check blood glucose 3x daily Active Glucose Blood Strips Dispense 300 Strip 3 (GLUCOSE METER TEST) brand covered 9 by insurance for pt to check blood glucose 3x daily. Active hydrocodone-acetaminophen Take 1 Tab by 60 Tab 0 (NORCO) 10-325 MG per mouth every 8 9 tablet hours as needed for Pain. documented as of this encounter (statuses as of 03/05/2019) Active Problems Problem Noted Date Insulin dependent type 2 diabetes mellitus [facility]) 07/30/2018 Neuropathy, diabetic [facility]) 07/17/2018 History of stroke 07/17/2018 Neuropathy 05/27/2018 Sensorineural hearing loss (SNHL) of both ears 11/20/2017 Bilateral temporomandibular joint pain 11/20/2017 HEMANT (obstructive sleep apnea) 03/09/2016 Overview: AHI 21.8,sat kirit 88% Auto-CPAP 10-14 cm Diabetes mellitus [facility]) 10/14/2014 Unspecified hypothyroidism 07/16/2014 RLS (restless legs syndrome) Stroke [facility] Overview: with residual L sided weakness HLD (hyperlipidemia) Depression HEMANT on CPAP documented as of this encounter (statuses as of 03/05/2019) Immunizations Name Administration Dates Next Due Influenza [...] Signs Reading Time Taken Comments Vital Sign 96/62 03/05/2019 9:41 AM CDT Blood Pressure 78 03/05/2019 9:41 AM CDT Pulse - - Temperature - - Respiratory Rate - - Oxygen Saturation - - Inhaled Oxygen Concentration 72.1 kg (159 lb) 03/05/2019 9:41 AM CDT Weight 157.5 cm (5' 2") 03/05/2019 9:41 AM CDT Height 29.08 03/05/2019 9:41 AM CDT Body Mass Index documented in this encounter Patient Instructions * Patient Instructions* Corky Borden Jr., MD - 03/05/2019 9:45 AM CDT -Use of opiate medications for therapeutic purposes 1) Continue current medications. 2) Take medications as prescribed. 3) Do not share or sell your medications. Do not take medications not prescribed to you. 4) Call if you have any intolerable medication side effects. 5) Try and get daily exercise including walking. 6) Call if symptoms worsen. 7) If you feel out of control with the use of your medication or if you experie nce a change in behavior, you may be showing signs of addiction. Please contact our office if you have any worries or believe that you need help with addiction or substance abuse. 8) Lost or stolen prescriptions and/or medications will not be refilled early. 9) Cognitive Side effects of opiate medications include: Fatigue Dizziness Clouded mentation Decreased ability to concentrate Slowed motor performance Slowed reflexes Increased response time to stimuli Impaired coordination Use caution regarding these side effects and if any are present do not drive o r operate heavy machinery. 10) The danger of mixing opiate medications with other sedating drugs like soma, benzodiazepines, sleep medications, alcohol and other opiates can lead to overs edation and accidental overdose. Do not mix medications. 11) Do not use any illegal substances. Constipation- Constipation is a common side effect of opiate medications. Opiates slow bowel motility. IF Constipation occurs, push fluids, use senna or senna with colace daily as di rected. Maintain a high fiber diet with plenty of roughage, and 6-8 large glasse s of water daily to avoid constipation in the future. Timing elimination to occu r after meals, or after a hot drink, can also improve the situation line puller. Call if symptoms do not improve, please call our office documented in this encounter Progress Notes * Corky Borden Jr., MD - 03/05/2019 9:45 AM CDT Chief Complaint Patient presents with Neck Pain Gavi Flower is a 58 y.o. female is here today for evaluation of neck pain. Since her last visit she has seen ENT and cleared for surgery. She had her cerv ical surgery in (removal of C4/5 plate, C3-4 and C5-7 ACDF, and redo ante rior fixation C3-C7) Currently: Pain Location: Neck and bilateral arm pain Pain severity: 9/10 Pain made worse by: Nothing in particular Associated symptoms/Red Flags: N/T in arms and legs, The patient denies F/C or unexplained weightloss. They have no bowel or bladder complaints. Previous workup: MRI of the c spine shows Previous treatments: PT (gave her too much pain), medrol, oxycodone, Past Medical History: Diagnosis Date CAD (coronary artery disease) 2015 s/p PCI- Dr. Fong in [facility] DM (diabetes mellitus) (HCCode) HLD (hyperlipidemia) Hypothyroid Neuropathy, diabetic (HCCode) HEMANT on CPAP RLS (restless legs syndrome) Stroke (HCCode) with residual L sided weakness Past Surgical History: Procedure Laterality Date HX APPENDECTOMY HX CARPAL TUNNEL RELEASE HX CERVICAL DISCECTOMY HX CHOLECYSTECTOMY Past Medical, Family, Social and Medication history was reviewed. The patient's pain diagram and questionnaire were reviewed. Review of Systems Constitutional: Negative for chills, fever and malaise/fatigue. Respiratory: Negative for shortness of breath. Cardiovascular: Negative for chest pain. Gastrointestinal: Negative for constipation. Genitourinary: Negative for urgency. Musculoskeletal: Positive for myalgias and neck pain. Neurological: Positive for tingling. Negative for sensory change, focal weakness and weakness. Psychiatric/Behavioral: Positive for depression. The patient is nervous/anxious and has insomnia. Physical Exam Blood pressure 96/62, pulse 78, height 5' 2" (1.575 m), weight 159 lb (72.1 kg), last menstrual period 10/30/2009. General appearance: oriented to person, place, and time and in mild to moderate distress. HEENT: normocephalic, atraumatic. Chest: no tachypnea, retractions or cyanosis. CVS exam: intact peripheral pulses upper extremities. Lower extremity edema: mi ld Abdominal exam: soft, nondistended. Skin exam - no rashes Neurological exam reveals alert, oriented, normal speech, no focal findings or movement disorder noted, DTR's normal and symmetric, motor and sensory grossly n ormal bilaterally. Cervical spine exam: Gait: Normal Tenderness: Cervicalnuchal region of trapezius left and anterior border of trape zius left Swelling:None ROM:limited flexion, extension and left rotation Spurling's maneuver: PositiveLeft After reviewing pertinent patient history and PE findings and correlating with a vailable imaging studies and past treatments my assessment and plan is as follow s: 1. Chronic pain syndrome The influence that chronic pain has on frustration, anxiety, and depression was discussed with the patient. Coping strategies were reviewed. 2. Small fiber neuropathy The pathophysiology of neuropathy and neuropathic pain was discussed with the alejandro vaughan. Treatment options including medication, exercise, PT, relaxation, and in jections were reviewed at length. The risks and benefits of injections were di scussed. Verbal instructions on energy conservation, joint and skin protection techniques were given. Benefits of regular exercise and activity were also revi ewed with her. 3. Muscle pain, myofascial The pathophysiology of myofascial pain was discussed with the patient. Treatmen t options including medication, exercise, PT, caretaker resort, relaxation, and injections were reviewed at length. The risks and benefits of trigger point, i ntra-articular steroid injections and spinal injections were discussed. Verbal instructions on spinal biomechanics and lifting techniques were given. Benefits of regular exercise and activity were also reviewed with her. 4. S/P cervical spinal fusion Now 2 months post op -Use of opiate medications for therapeutic purposes 1) Bronson 10mg prn pain 2) Take medications as prescribed. 3) Do not share or sell your medications. Do not take medications not prescribed to you. 4) Call if you have any intolerable medication side effects. 5) Try and get daily exercise including walking. 6) Call if symptoms worsen. 7) If you feel out of control with the use of your medication or if you experie nce a change in behavior, you may be showing signs of addiction. Please contact our office if you have any worries or believe that you need help with addiction or substance abuse. 8) Lost or stolen prescriptions and/or medications will not be refilled early. 9) Cognitive Side effects of opiate medications include: Fatigue Dizziness Clouded mentation Decreased ability to concentrate Slowed motor performance Slowed reflexes Increased response time to stimuli Impaired coordination Use caution regarding these side effects and if any are present do not drive o r operate heavy machinery. 10) The danger of mixing opiate medications with other sedating drugs like soma, benzodiazepines, slleep medications, alcohol and other opiates can lead to over sedation and accidental overdose. Do not mix medications. 11) Do not use any illegal substances. Constipation- Constipation is a common side effect of opiate medications. Opiates slow bowel motility. IF Constipation occurs, push fluids, use senna or senna with colace daily as di rected. Maintain a high fiber diet with plenty of roughage, and 6-8 large glasse s of water daily to avoid constipation in the future. Timing elimination to occu r after meals, or after a hot drink, can also improve the situation retirement. Call if symptoms do not improve, please call our office Corky Borden Jr., MD documented in this encounter Plan of Treatment Care Team Description Date Type Specialty Navdeep Gonzales MD [address] [place] [address] [phone] 03/10/2019 Office Visit Neurosurgery Anthony Meadows MD [address] [facility] [address] [place], [place] [id number] 04/08/2019 Office Visit Gastroenterology Bong Camejo MD [address] [facility] [address] [place], [place] [id number] 07/15/2019 Office Visit Pulmonology Order Schedule Name Type Priority Associated Diagnoses Ordered: 03/05/2019 AMB REF TO PAIN Outpatient Routine Chronic pain syndrome MANAGEMENT EXTERNAL Referral Small fiber neuropathy Muscle pain, myofascial S/P cervical spinal fusion Health Maintenance Due Date Last Done Comments [...] filedocumented in this encounter Visit Diagnoses Diagnosis Chronic pain syndrome - Primary Small fiber neuropathy Unspecified hereditary and idiopathic peripheral neuropathy Muscle pain, myofascial Mylagia and myositis, unspecified S/P cervical spinal fusion Arthrodesis status documented in this encounter Insurance Type Payer Benefit Subscriber ID Effective Phone Address Plan / Dates Group Medicaid [employer] xxxxxxxxx 2013-P [address] [place] [address] [place] [address] 2004 DOM[place] singh [place] [id number] documented as of this encounter
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
--- OUTSIDE RECORDS SUMMARY | 2019-09-08 14:45 | XMS REPORT | Summary of Care ---
Author Author [facility] Organization [facility] Address Unknown Phone Unavailable Care Team Providers Care Supervisor Pipeline Name Role Phone Joey Clark MD [employer] [phone] Reason for Referral * Radiology Services (Routine) Referred By Contact Referred To Contact Status Reason Specialty Diagnoses / Procedures Shae Cintron NP [address] [place] [address] Tammy, Radiology [address] 1st [place] [address] Pending Radiology Diagnoses S/P cervical spinal fusion Cervicalgia P rocedures XR C-SPINE AP AND LATERAL AND ODONTOID 3 VWS Reason for Visit * Reason Comments Neck Pain neck pain radiating to both arms Numbness of upper extremities Follow Up Encounter Details Care Team Description Date Type Department Navdeep Gonzales MD [address] [place] [address] [phone] Neck Pain (neck pain radiating to both arms ); Numbness (of upper extremities ); Follow Up 07/07/2019 Office Visit [facility] Neurosurgery [address] [facility] 9th Floor, [address] [place] [address] Allergies Comments Active Allergy Reactions Severity Noted Date Mood changes Gabapentin Other (See Medium 08/07/2018 Comments) documented as of this encounter (statuses as of 07/11/2019) Medications End Date Status Medication Sig Dispensed [...] tablet mouth four 9 times daily. Active NEXIUM 40 MG capsule Take 1 Cap by 180 Cap 1 mouth 2 times 9 daily (before meals). Active omeprazole (PRILOSEC) 40 Take 1 Cap by 60 Cap 5 MG capsule mouth two 9 times daily. 07/27/2019 Active atorvastatin (LIPITOR) [...] skin 2 times daily (with meals). Active dicyclomine (BENTYL) 10 Take 1 Cap by 120 Cap 6 MG capsule mouth 4 times 9 daily (before meals and nightly). Active levothyroxine (SYNTHROID) Take 1 Tab by [...] 0 MG tablet mouth daily. 0 Active Blood Glucose Monitoring Check glucose 1 Kit 0 Suppl (TRUE METRIX METER) 3x daily; Dx 0 w/Device KIT Active Glucose Blood Strips Check glucose 300 Each 10 (TRUE METRIX BLOOD 3x daily; Dx 0 GLUCOSE TEST) E11.65 Active pantoprazole (PROTONIX) TAKE 1 TABLET 60 Tab 5 40 MG tablet BY MOUTH AT 0 6AM AND 4PM (INS LIMITS 1 DAILY) Active BD PEN NEEDLE JAHAIRA U/F Use 6 times 600 Each 32G X 4 MM daily for 0 MISCIndications: Type 2 insulin diabetes mellitus with pens.Dx E11.9 [facility] Active hydrocodone-acetaminophen Take 1 Tab by 120 Tab 0 (NORCO) 10-325 MG per mouth every 6 0 tablet hours as needed for Pain. documented as of this encounter (statuses as of 07/11/2019) Active Problems Problem Noted Date Insulin dependent type 2 diabetes mellitus [facility]) 07/30/2018 Neuropathy, diabetic [facility]) 07/17/2018 History of stroke 07/17/2018 Neuropathy 05/27/2018 Sensorineural hearing loss (SNHL) of both ears 11/20/2017 Bilateral temporomandibular joint pain 11/20/2017 HEMANT (obstructive sleep apnea) 03/09/2016 Overview: AHI 21.8,sat kirit 88% Auto-CPAP 10-14 cm Diabetes mellitus [facility]) 10/14/2014 Hypothyroidism 07/16/2014 RLS (restless legs syndrome) [facility] Overview: with residual L sided weakness HLD (hyperlipidemia) Depression HEMANT on CPAP documented as of this encounter (statuses as of 07/11/2019) Immunizations Name Administration Dates Next Due Influenza [...] Signs Reading Time Taken Comments Vital Sign 109/75 07/07/2019 3:29 PM [employer]W [employer] Blood Pressure 88 07/07/2019 3:29 PM SAW CLE[employer] Pulse 36.4 C (97.5 F) 07/07/2019 3:29 PM [employer]W [employer] Temperature 18 07/07/2019 3:29 PM SAW CLEANER Respiratory Rate 98% 07/07/2019 3:29 PM SAW CLEANER Oxygen Saturation - - Inhaled Oxygen Concentration 72.6 kg (160 lb) 07/07/2019 3:29 PM SAW CLEANER Weight 157.5 cm (5' 2") 07/07/2019 3:29 PM SAW CLE[employer]ER Height 29.26 07/07/2019 3:29 PM SAW CLE[employer]ER Body Mass Index documented in this encounter Patient Instructions * Patient Instructions* Shae Cintron NP - 07/07/2019 3:15 PM [employer] Your Body mass index is 29.26 kg/m. Body mass index (BMI) can help you see if your weight is raising your risk for h ealth problems. It uses a formula to compare how much you weigh with how tall yo u are. A BMI between 18.5 and 24.9 is considered healthy. A BMI between 25 and 2 9.9 is considered overweight. A BMI of 30 or higher is considered obese. If your BMI is in the normal range, it means that you have a lower risk for weig ht-related health problems. If your BMI is in the overweight or obese range, you may be at increased risk for weight-related health problems, such as high blood pressure, heart disease, stroke, arthritis or joint pain, and diabetes. BMI is just one measure of your risk for weight-related health problems. You may be at higher risk for health problems if you are not active, you eat an unhealt hy diet, or you drink too much alcohol or use tobacco products. Follow-up care is a atkinson part of your treatment and safety. Be sure to make and g o to all appointments, and call your doctor if you are having problems. It's als o a good idea to know your test results and keep a list of the medicines you paul e. How can you care for yourself at home? Practice healthy eating habits. This includes eating plenty of fruits, vegeta bles, whole grains, lean protein, and low-fat dairy. Get at least 30 minutes of exercise 5 days a week or more. Brisk walking is a good choice. You also may want to do other activities, such as running, swimmin g, cycling, or playing tennis or team sports. Do not smoke. Smoking can increase your risk for health problems. If you need help quitting, talk to your doctor about stop-smoking programs and medicines. T hese can increase your chances of quitting for good. Limit alcohol Where can you learn more? Go to www.[employer].Dctio Go to the Search tab with the magnifying glass on the right side of [employer] home page. Enter S176 in the search box to learn more about "Body Mass Index: Care Instruct ions." CLEANER documented in this encounter Progress Notes * Navdeep Gonzales MD - 07/07/2019 3:15 PM SAW CLEANER Reason for visit: Post op visit. I had the pleasure of seeing Ms. Flower at the neurosurgery clinic. The tomy valencia is a 58 y.o. female, about 6 months post op, who underwent removal of C4/5 pl ate, C3-4 and C5-7 ACDF, and redo anterior fixation C3-C7 on 12/19/18 for cervica l disc herniations, cervical radiculopathy, and cervical myelopathy. She feels her symptoms are about 50 % better. She remains with paraspinal neck p ain and left arm numbness. She has difficulty turning her head without pain. She takes [place] 10/325 for pain prescribed by Dr. Borden.Patient returns for follow up to discuss their progress. CURRENT MEDICATIONS: Current Outpatient Medications Medication Sig Dispense Refill aspirin 81 MG tablet Take 81 mg by mouth every morning. atorvastatin (LIPITOR) 80 MG tablet Take 1 Tab by mouth daily for 90 days. 9 0 Tab 3 BD PEN NEEDLE JAHAIRA U/F 32G X 4 MM MISC Use 6 times daily for insulin pens.Dx E11.9 600 Each 10 Blood Glucose Monitoring Suppl (TRUE METRIX METER) w/Device KIT Check glucos e 3x daily; Dx 1 Kit 0 carvedilol (COREG) 6.25 MG tablet Take 1 Tab by mouth daily as needed. dicyclomine (BENTYL) 10 MG capsule Take 1 Cap by mouth 4 times daily (before meals and nightly). 120 Cap [...] daily with meals. 45 mL 2 hydrocodone-acetaminophen (NORCO) 10-325 MG per tablet Take [...] mouth four times daily. 90 Tab 0 NEXIUM 40 MG capsule Take 1 Cap by mouth 2 times daily (before meals). 180 C ap 1 omeprazole (PRILOSEC) 40 MG capsule Take 1 Cap by mouth two times daily. 60 Cap 5 pantoprazole (PROTONIX) 40 [...] seizures or visual changes PHYSICAL EXAM: Vitals: 07/07/19 1529 BP: 109/75 Pulse: 88 Resp: 18 Temp: 97.5 F (36.4 C) TempSrc: Oral SpO2: 98% Weight: 160 lb (72.6 kg) Height: 5' 2" (1.575 m) Patient [...] drainage, erythema, or edema. Cervical spine X-rays ([facility]) dated 07/07/19 surgical hardware remains intac t and in good alignment without evidence of failure or loosening. There is evide nce of early fusion DIAGNOSIS: Encounter Diagnosis and Orders ICD-10-CM 1. S/P cervical spinal fusion Z98.1 XR C-SPINE AP AND LATERAL AND ODONTOID 3 VWS 2. Cervicalgia M54.2 XR C-SPINE AP AND LATERAL AND ODONTOID 3 VWS ASSESSMENT/PLAN: Ms. Gavi Flower is a pleasant 58 y.o. female, about 6 months post op, who underwent removal of C4/5 plate, C3-4 and C5-7 ACDF, and redo anterior fixa tion C3-C7 on 12/19/18 for cervical disc herniations, cervical radiculopathy, and cervical myelopathy. She remains with paraspinal neck pain. X-rays from today r eveal the surgical hardware remains intact and in good alignment with evidence o f early fusion. She is instructed to follow up with Dr. Borden for possibe TPI. I will see Venecia Saldierna as needed. Navdeep Gonzales MD Right Of Way Worker Department of Neurosurgery [facility] CLEANER documented in this encounter Plan of Treatment Care Team Description Date Type Specialty Bong Camejo MD [address] [facility] [address] [place] [address] [phone] 07/15/2019 Office Visit Pulmonology Anthony Meadows MD [address] [place] [address] [phone] 07/15/2019 Office [place] [address] [place] [address] [place] [address] [phone] 08/28/2019 Office Visit Gastroenterology Santo Barksdale MD [address], [address] [place] [address] [phone] 09/03/2019 Office Visit Endocrinology Corky Borden Jr., MD [facility] [address] [address] [phone] 09/29/2019 Office Visit Physical Medicine and Rehab Santo Barksdale MD [address], [address] [place] [address] [phone] 10/23/2019 Office Visit Endocrinology Order Schedule Name Type Priority Associated Diagnoses 1 Occurrences starting 07/07/2019 until 02/05/2020 XR C-SPINE AP AND LATERAL Imaging Routine S/P cervical spinal AND ODONTOID 3 VWS fusion Cervicalgia Health Maintenance Due Date Last Done Comments [...] xxxxxxxxx 2013-P [address] [place] [address] [place] [address] documented as of this encounter
--- NOTE | 2019-09-08 14:54 | NUR ---
seen in triage, unpaid intern and md
== END | disposition left against medical advice (07) ==
LOC: ER 14:38
DX: R50.9 Fever, unspecified (principal)

== ENCOUNTER → 2019-10-15 | Day surgery (SDC) | payer OTHER ==
[2019-10-10 11:38] LABS: BASOPHILS % 0.4 % (0.0-1.0); EOSINOPHILS # (AUTO) 0.1 (0.0-0.4); EOSINOPHILS % 0.9 % (0.0-6.0); HEMATOCRIT 39.6 % (34.2-44.1); HEMOGLOBIN 13.9 g/dL (12.0-16.0); LYMPHOCYTES # (AUTO) 1.7 (1.0-3.2); LYMPHOCYTES % 31.6 % (18.0-39.1); MEAN CORPUSCULAR HEMOGLOBIN 30.8 pg (28-32); MEAN CORPUSCULAR HGB CONC 35.1 g/dL (31-35); MEAN CORPUSCULAR VOLUME 87.8 fL (81-99); MONOCYTES # (AUTO) 0.4 (0.2-0.8); MONOCYTES % 7.9 % (4.4-11.3); NEUTROPHILS # (AUTO) 3.1 (2.1-6.9); NEUTROPHILS % 58.8 % (38.7-80.0); PLATELET COUNT 219 x10e3/uL (140-360); RED BLOOD COUNT 4.51 x10e6/uL (3.6-5.1); RED CELL DISTRIBUTION WIDTH 12.1 % (11.7-14.4)
--- NOTE | 2019-10-10 11:38 | Diagnostic Imaging Report ---
EXAMINATION: CHEST 2 VIEWS INDICATION: Pre-operative COMPARISON: None FINDINGS: LINES/TUBES:None LUNGS:The lungs are well-inflated. No focal consolidation or pulmonary edema. PLEURA:No pleural effusion or pneumothorax. MEDIASTINUM:The cardiomediastinal silhouette appears normal in size and shape. BONES/SOFT TISSUES:No acute osseous injury. Cervical spine fusion hardware. ABDOMEN:No free air under the diaphragm. Status post cholecystectomy. IMPRESSION: No focal pneumonia or pulmonary edema. Signed by: Edy Donnelly MD on 10/10/2019 11:34 AM
[2019-10-10 11:57] LABS: ANION GAP 13.5 mmol/L (8-16); BLOOD UREA NITROGEN 16 mg/dL (7-26); BUN/CREATININE RATIO 18 (6-25); CALCIUM 10.1 mg/dL (8.4-10.2); CARBON DIOXIDE 23 mmol/L (22-29); CHLORIDE 108 mmol/L (98-107); CREATININE, SERUM 0.88 mg/dL (0.57-1.11); EST GLOMERULAR FILTRATION RATE > 60 ML/MIN (60-); GLUCOSE 304 mg/dL (74-118); POTASSIUM 4.5 mmol/L (3.5-5.1); SODIUM 140 mmol/L (136-145)
[~2019-10-15] MED LIST changes: +BUPIVACAINE 0.5%/EPI 30 ML SDV INJ ONE; +CEFAZOLIN SOD 1 GM/NS 50ML 100 ML IV ONE; +DEXAMETHASONE SOD PHOS INJ 4 MG/ML VIAL ONE; +FENTANYL CITRATE/PF 100MCG/2 ML INJ ONE; +INSULIN REGULAR, HUMAN 100 UNIT/1 ML 3ML VIAL ONE; +KETOROLAC TROMETHAMINE 30 MG/ML VIAL ONE; +LIDOCAINE HCL 2% LOCAL INJ 5 ML SDV VIAL INJ ONE; +MIDAZOLAM HCL 2 MG/2 ML VIAL ONE; +ONDANSETRON HCL INJ 2MG/ML 2ML 2 MG/ML VIAL ONE; +PHENYLEPHRINE HCL 1% 10 MG/ML VIAL ONE; +PROPOFOL IV EMULSION 10 MG/ML 20 ML VIAL ONE; +SEVOFLURANE INHAL SOLN 250 ML PEN BTL ONE
[2019-10-15 11:15] VITALS: BP 118/65
--- NOTE | 2019-10-22 23:56 | Operative Report ---
DATE OF PROCEDURE: 10/15/2019 SURGEON: Colin Bolden MD PREOPERATIVE DIAGNOSES: 1. Left knee medial meniscus tear. 2. Left knee degenerative joint disease. PREOPERATIVE DIAGNOSES: 1. Left knee medial meniscus tear. 2. Left knee degenerative joint disease. OPERATION PROCEDURE PERFORMED: The patient underwent a left knee examination under anesthesia, left knee arthroscopy, left knee partial medial meniscectomy, left knee chondroplasty of the medial femoral condyle and medial tibial plateau. CARE PROFESSIONALS: None. IV FLUIDS: Per the anesthesia record. ANESTHESIA: General endotracheal anesthesia. BLOOD LOSS: Minimal. COMPLICATIONS: None. BRIEF DESCRIPTION PATIENT'S OPERATIVE PROCEDURE: Ms. Flower was taken to the operating room and placed in supine position on the operating table. Following induction of general anesthesia as well as endotracheal intubation, the patient's left lower extremity was examined under anesthesia. She was found to have a mild effusion within the knee joint, but otherwise ligamentously stable knee. The patient's lower extremity was prepped and draped in standard surgical fashion. A two-port technique used to provide this patient arthroscopic evaluation of the knee joint. The scope was placed in the knee joint atraumatically. Examination of the patellofemoral joint demonstrated chondromalacia of the articulating surfaces. There were no loose bodies in the patella pouch, medial and lateral gutters. Scope was then advanced to medial compartment. Examination the medial compartment demonstrated a torn medial meniscus. There was also chondromalacia of the articulating surfaces. A combination of biting forceps and a motorized shaver were used to resect the torn portion of meniscus. Chondroplasties of the medial femoral condyle and medial tibial plateau performed at this time. Scope was then advanced to the intercondylar notch and the anterior cruciate ligament was identified and found to be intact. Scope was advanced to lateral compartment and there was no significant chondromalacia of the articulating surfaces. The knee was deflated with sterile normal saline. The portal sites were closed using 4-0 nylon suture. The portal sites as well as the knee was injected with 0.5% Marcaine with epinephrine. Sterile dressings were applied and the patient was then awakened and taken to postanesthesia care unit in stable condition. Colin Bolden MD EBR/MODL /[id number]
== END | disposition home or self-care (01) ==
LOC: OR 07:00
PROVIDERS: ATTEND Specialist
DX: S83.222A Peripheral tear of medial meniscus, current injury, left knee, initial encounter (principal); M17.12 Unilateral primary osteoarthritis, left knee; S76.312A Strain of muscle, fascia and tendon of the posterior muscle group at thigh level, left thigh, initial encounter; M94.262 Chondromalacia, left knee; E11.9 Type 2 diabetes mellitus without complications; J45.909 Unspecified asthma, uncomplicated; I25.2 Old myocardial infarction; K29.70 Gastritis, unspecified, without bleeding; L98.499 Non-pressure chronic ulcer of skin of other sites with unspecified severity; I25.10 Atherosclerotic heart disease of native coronary artery without angina pectoris; I10 Essential (primary) hypertension; F41.9 Anxiety disorder, unspecified; F32.9 Major depressive disorder, single episode, unspecified; X58.XXXA Exposure to other specified factors, initial encounter; Z88.8 Allergy status to other drugs, medicaments and biological substances; Z01.810 Encounter for preprocedural cardiovascular examination; Z01.812 Encounter for preprocedural laboratory examination; Z01.818 Encounter for other preprocedural examination; Z11.59 Encounter for screening for other viral diseases; Z79.84 Long term (current) use of oral hypoglycemic drugs; Z79.82 Long term (current) use of aspirin; Z79.4 Long term (current) use of insulin; Z86.73 Personal history of transient ischemic attack (TIA), and cerebral infarction without residual deficits; Z87.891 Personal history of nicotine dependence
CPT/HCPCS: 29881; 36415 ×2; 71046; 80048; 82948; 85025; 87635; 93005; J0690; J1100; J1885; J2001; J2250; J2370; J2405; J2704; J3010; J1817

== ENCOUNTER 2019-11-08 15:44 | Emergency (ER) | payer OTHER ==
[~2019-11-08] VITALS: Ht 157.5 cm; Wt 76.7 kg
[~2019-11-08 15:44] MED LIST changes: -BUPIVACAINE 0.5%/EPI 30 ML SDV INJ ONE; -CEFAZOLIN SOD 1 GM/NS 50ML 100 ML IV ONE; -DEXAMETHASONE SOD PHOS INJ 4 MG/ML VIAL ONE; -FENTANYL CITRATE/PF 100MCG/2 ML INJ ONE; -INSULIN REGULAR, HUMAN 100 UNIT/1 ML 3ML VIAL ONE; -KETOROLAC TROMETHAMINE 30 MG/ML VIAL ONE; -LIDOCAINE HCL 2% LOCAL INJ 5 ML SDV VIAL INJ ONE; -MIDAZOLAM HCL 2 MG/2 ML VIAL ONE; -ONDANSETRON HCL INJ 2MG/ML 2ML 2 MG/ML VIAL ONE; -PHENYLEPHRINE HCL 1% 10 MG/ML VIAL ONE; -PROPOFOL IV EMULSION 10 MG/ML 20 ML VIAL ONE; -SEVOFLURANE INHAL SOLN 250 ML PEN BTL ONE
[2019-11-08] MEDS ORDERED: SODIUM CHLORIDE 0.9% 1000ML 1,000 ML IV STA (16:03)
--- NOTE | 2019-11-08 16:04 | Emergency Department Note ---
History of Present Illnes History of Present Illness Chief Complaint: Extremity Trauma/Pain History of Present Illness This is a 59 year old female . 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 Onset (how long ago): day(s) (4 days ) Location: left knee Quality: mod Radiation: non-radiation, back, neck, extremity, abdomen, periumbilical, flank, proximal, distal, other Severity: moderate Onset quality: gradual Duration (how long): day(s) (4 days) Timing of current episode: constant Progression: worsening Context: recent illness, recent surgery, recent immobilization, recent travel, trauma/injury, new medications, hx of DVT/PE, non-compliance w/ medications, other Relieving factors: none Exacerbating factors: none Treatments prior to arrival: none (INDIRA SCHMIDT NP) Past Medical/Family History Physician Review I have reviewed the patient's past medical and family history. Any updates have been documented here. (INDIRA SCHMIDT NP) Past Medical History Recent Fever: No Clinical Suspicion of Infectio: No New/Unexplained Change in Ment: No Past Medical History: Diabetes, Hypothyroidism, Other Mental Illness, Hyperlipedemia Other Medical History: HIGH CHOLESTEROL RLS depression fatty liver gastritis Past Surgical History: Cholecysctectomy, Appendectomy Other Surgery: CERVICLE FUSION bilateral carpal tunnel cataracts bilateral L KNEE SX ON OCT 15 2019 (INDIRA SCHMIDT NP) Social History Smoking Cessation: Never Smoker Counseling Performed: No Alcohol Use: Social Any Illegal Drug Use: No TB Exposure/Symptoms: No Physically hurt or threatened: No (INDIRA CSHMIDT NP) Other Last Tetanus: unk Any Pre-Existing Lines (PICC,: No Is patient up to date on immun: Yes Last Flu: UTD Last Pneumovax: UTD (INDIRA SCHMIDT NP) Review of Systems Review of Systems Constitutional: no symptoms EENTM: no symptoms Cardiovascular: no symptoms Respiratory: no symptoms Gastrointestinal: no symptoms Genitourinary: no symptoms Musculoskeletal: joint pain (left knee) Neurological: no symptoms Psychological: no symptoms Endocrine: no symptoms Hematological/Lymphatic: no symptoms Review of other systems All other systems reviewed and negative. 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 TEACHER) Physical Exam CONSTITUTIONAL Constitutional: well-developed, well-nourished HENT HENT: normocephalic, atraumatic, oropharynx clear/moist, nose normal HENT L/R: left ext ear normal, right ext ear normal EYES Eyes: PERRL, conjunctivae normal NECK Neck: ROM normal PULMONARY Pulmonary: effort normal, breath sounds normal CARDIOVASCULAR Cardiovascular: regular rhythm, heart sounds normal, capillary refill normal, normal rate GASTROINTESTINAL Abdominal: soft, nontender, bowel sounds normal GENITOURINARY Genitourinary: exam deferred SKIN Skin: warm, dry MUSCULOSKELETAL Musculoskeletal: ROM normal, tenderness (ttp skin warm no redness ), swelling (minimal ) NEUROLOGICAL Neurological: alert, oriented x 3, no gross motor or sensory deficits PSYCHOLOGICAL Psychological: mood/affect normal, judgement normal (INDIRA SCHMIDT 4TH GRADE MATH TEACHER) Results Laboratory Laboratory Laboratory Tests Test 11/08/19 17:42 11/08/19 17:30 11/08/19 17:10 Urine Color Yellow (YELLOW) Urine Clarity Sl cloudy (CLEAR) Urine pH 6 (5 - 7) Urine Specific [place] 1.030 (1.010-1.025) Urine Protein Negative (NEGATIVE) Urine Glucose (UA) 2+ (NEGATIVE) Urine Ketones Negative (NEGATIVE) Urine Blood Negative (NEGATIVE) Urine Nitrite Negative (NEGATIVE) Urine Bilirubin Negative (NEGATIVE) Urine Urobilinogen 0.2 mg/dL (0.2 - 1) Urine Leukocyte Esterase Negative (NEGATIVE) Urine RBC 0-5 /HPF (0-5) Urine WBC 0-5 /HPF (0-5) Urine Epithelial Cells Few /LPF (NONE) Urine Bacteria Rare /HPF (NONE) White Blood Count 6.83 x10e3/uL (4.8-10.8) Red Blood Count 4.49 x10e6/uL (3.6-5.1) Hemoglobin 13.5 g/dL (12.0-16.0) Hematocrit 38.6 % (34.2-44.1) Mean Corpuscular Volume 86.0 fL (81-99) Mean Corpuscular Hemoglobin 30.1 pg (28-32) Mean Corpuscular Hemoglobin Concent 35.0 g/dL (31-35) Red Cell Distribution Width 12.4 % (11.7-14.4) Platelet Count 237 x10e3/uL (140-360) Neutrophils (%) (Auto) 63.2 % (38.7-80.0) Lymphocytes (%) (Auto) 29.4 % (18.0-39.1) Monocytes (%) (Auto) 5.4 % (4.4-11.3) Eosinophils (%) (Auto) 1.2 % (0.0-6.0) Basophils (%) (Auto) 0.4 % (0.0-1.0) Neutrophils # (Auto) 4.3 (2.1-6.9) Lymphocytes # (Auto) 2.0 (1.0-3.2) Monocytes # (Auto) 0.4 (0.2-0.8) Eosinophils # (Auto) 0.1 (0.0-0.4) Basophils # (Auto) 0.0 (0.0-0.1) Absolute Immature Granulocyte (auto 0.03 x10e3/uL (0-0.1) Erythrocyte Sedimentation Rate 16 mm/hr (0-20) Prothrombin Time 12.7 seconds (11.9-14.5) Prothromb Time International Ratio 0.90 Activated Partial Thromboplast Time 26.0 seconds (23.8-35.5) Sodium Level 138 mmol/L (136-145) Potassium Level 3.7 mmol/L (3.5-5.1) Chloride Level 108 mmol/L (98-107) Carbon Dioxide Level 18 mmol/L (22-29) Anion Gap 15.7 mmol/L (8-16) Blood Urea Nitrogen 15 mg/dL (7-26) Creatinine 0.82 mg/dL (0.57-1.11) Estimat Glomerular Filtration Rate > 60 ML/MIN (60-) BUN/Creatinine Ratio 18 (6-25) Glucose Level 205 mg/dL (74-118) Calcium Level 10.0 mg/dL (8.4-10.2) Total Bilirubin 0.3 mg/dL (0.2-1.2) Aspartate Amino Transf (AST/SGOT) 20 IU/L (5-34) Alanine Aminotransferase (ALT/SGPT) 30 IU/L (0-55) Alkaline Phosphatase 129 IU/L (40-150) Total Protein 7.5 g/dL (6.5-8.1) Albumin 3.9 g/dL (3.5-5.0) Globulin 3.6 g/dL (2.3-3.5) Albumin/Globulin Ratio 1.1 (0.8-2.0) Body Fluid Type Aspirate Body Fluid Color Straw Body Fluid Appearance Sl.cloudy Body Fluid WBC 17 cells/uL Body Fluid RBC 245 cells/uL Lab results reviewed: Yes (INDIRA SCHMIDT 4TH GRADE MATH TEACHER) Imaging Impressions Exam: Left knee radiographs-3 views History: Knee pain. Comparison: None. Findings/Impression: No evidence of acute fracture, malalignment, or soft tissue abnormality. No suprapatellar joint effusion. Signed by: Dr. Anahi Gil MD on 11/08/2019 6:25 PM Dictated By: ANAHI GIL MD 24 Transcribed By: GARRET on 11/08/191824 IMPRESSION: Mild patchy left basilar opacity more likely represents atelectasis than infection. No evidence of lobar consolidation. Signed by: Dr. Anahi Gil MD on 11/08/2019 6:23 PM Dictated By: ANAHI GIL MD 22 Transcribed By: GARRET on 11/08/191822 (INDIRA SCHMIDT 4TH GRADE MATH TEACHER) Procedures Joint Aspiration / Injection Instance: joint asp/inject 1 Time out performed: Yes Side of body: left Joint aspirated: knee Skin preparation: povidone-iodine 1% Local anesthetic: lidocaine 1% Amount of anestheisa (mL): 2 Needle size used: 18 Fluid obtained: viscous Total fluid obtained (mL): 1 Patient tolerated procedure: well Complications: none Additional comments procedure performed by Dr Wesley (INDIRA SCHMIDT 4[employer] GRADE MATH TEACHER) Critical Care Time Subsequent provider I assumed direction of critical care for this patient from another provider of my specialty. (INDIRA SCHMIDT 4TH GRADE MATH TEACHER) Assessment & Plan Reassessment Reassessment time: 16:04 Reassessment 59y f presented to ed c/o left knee pain sent to ed for eval by Dr Bolden - post arthroscopic procedure October 14 - Dr Wesley in eval pt status (INDIRA SCHMIDT 4TH GRADE MATH TEACHER) Assessment & Plan Final Impression: (1) PAIN IN LEFT KNEE Assessment & Plan Dr Wesley in re eval pt status discussed lab rad results plan of care and f/u instructions w/ Dr Bolden placed on bactrim and ultricet 1. f/u /w Dr Bolden Sunday w/o fail 2. return to ed as needed (INDIRA SCHMIDT 4TH GRADE MATH TEACHER) Depart Disposition: HOME, SELF-CARE Last Vital Signs Date Time Temp Pulse Resp B/P (MAP) Pulse Ox O2 Delivery O2 Flow Rate FiO2 11/08/19 15:46 98.6 81 16 111/73 99 (INDIRA SCHMIDT 4TH GRADE MATH TEACHER) Home Meds Reported Medications Ropinirole Hcl (ROPINIROLE HCL) 1 Mg Tablet, 1 MG PO DAILY, #30 TAB 10/09/19 Potassium Chloride (POTASSIUM CHLORIDE) 20 Meq Tab.er.prt, 20 MEQ PO BID 10/09/19 Atorvastatin Calcium* (LIPITOR*) 10 Mg Tablet, 40 MG PO HS, TAB 10/09/19 Carvedilol* (COREG CR*) 10 Mg Capcr, 6.25 MG PO DAILY 10/09/19 Insulin Glargine,Hum.rec.anlog (Toujeo Solostar) 300 Unit/1 Ml Insuln.pen, 40 UNITS SC AC 10/09/19 Sertraline Hcl (ZOLOFT) 50 Mg Tablet, 200 MG PO DAILY, #30 TAB 10/09/19 Levothyroxine Sodium (LEVOTHYROXINE SODIUM) 50 Mcg Tablet, 25 MCG PO DAILY, #30 TAB 10/09/19 Aspirin (ASPIR 81) 81 Mg Tablet.dr, 81 MG PO DAILY 10/09/19 Metformin Hcl (METFORMIN HCL) 500 Mg Tablet, 500 MG PO BID, #60 TAB 10/09/19 Physician Attestation Provider Attestation The patient's history, exam findings, diagnostics, and a summary of any inter ventions or procedures was reviewed in detail with our RYLEE. I personally interviewed and examined the patient, and I have reviewed and agree with the HPI andexam. My personal exam shows very minimal swelling of left knee with minimal effusion, arthroscopic sites look C&D no discharge, tender at suprapatellar and infrapatellar area, no calf tenderness, no swelling below knee. I confirm the diagnosis as documented by the RYLEE. I have reviewed and agree with the care plan articulated in the disposition section. I spoke with Dr Bolden several times in consult, I did arthrocentesis and only got small amount <1 ml of fluid. Cell count and Gram stain noted. Bactrim per Dr Bolden and he will F/U this week (CHRISTOPHER WESLEY MD) INDIRA SCHMIDT NP November 08, 2019 16:04 CHRISTOPHER WESLEY MD November 08, 2019 19:46
[2019-11-08] MEDS ORDERED: LIDOCAINE HCL 1% LOCAL INJ 20 ML VIAL INJ ONE (16:45)
--- NOTE | 2019-11-08 16:48 | NUR ---
consent signed for procedure and palced on the clipboard
[2019-11-08 17:50] LABS: BASOPHILS % 0.4 % (0.0-1.0); EOSINOPHILS # (AUTO) 0.1 (0.0-0.4); EOSINOPHILS % 1.2 % (0.0-6.0); HEMATOCRIT 38.6 % (34.2-44.1); HEMOGLOBIN 13.5 g/dL (12.0-16.0); LYMPHOCYTES % 29.4 % (18.0-39.1); MEAN CORPUSCULAR HEMOGLOBIN 30.1 pg (28-32); MONOCYTES # (AUTO) 0.4 (0.2-0.8); MONOCYTES % 5.4 % (4.4-11.3); NEUTROPHILS # (AUTO) 4.3 (2.1-6.9); NEUTROPHILS % 63.2 % (38.7-80.0); PLATELET COUNT 237 x10e3/uL (140-360); RED BLOOD COUNT 4.49 x10e6/uL (3.6-5.1); RED CELL DISTRIBUTION WIDTH 12.4 % (11.7-14.4)
[2019-11-08 18:05] LABS: INR 0.9; PROTHROMBIN TIME 12.7 seconds (11.9-14.5)
[2019-11-08 18:16] LABS: CLARITY,URINE SL CLOUDY (CLEAR); COLOR,URINE YELLOW (YELLOW); LEUKOCYTE ESTERASE ,URINE NEGATIVE (NEGATIVE)
[2019-11-08 18:17] LABS: BILIRUBIN,URINE NEGATIVE (NEGATIVE); KETONES,URINE NEGATIVE (NEGATIVE); NITRITE,URINE NEGATIVE (NEGATIVE); PROTEIN,URINE DIPSTICK NEGATIVE (NEGATIVE); URINE UROBILINOGEN 0.2 mg/dL (0.2 - 1)
[2019-11-08 18:17] LABS: ALANINE AMINOTRANSFERASE 30 IU/L (0-55); ALBUMIN 3.9 g/dL (3.5-5.0); ALBUMIN/GLOBULIN RATIO 1.1 (0.8-2.0); ALKALINE PHOSPHATASE 129 IU/L (40-150); ANION GAP 15.7 mmol/L (8-16); BLOOD UREA NITROGEN 15 mg/dL (7-26); BUN/CREATININE RATIO 18 (6-25); CARBON DIOXIDE 18 mmol/L (22-29); CHLORIDE 108 mmol/L (98-107); CREATININE, SERUM 0.82 mg/dL (0.57-1.11); EST GLOMERULAR FILTRATION RATE > 60 ML/MIN (60-); GLUCOSE 205 mg/dL (74-118); POTASSIUM 3.7 mmol/L (3.5-5.1); SODIUM 138 mmol/L (136-145)
--- NOTE | 2019-11-08 18:25 | NUR ---
left knee wrapped--4x4, jose wrap
--- NOTE | 2019-11-08 18:26 | Diagnostic Imaging Report ---
EXAMINATION: CHEST SINGLE (PORTABLE) INDICATION: FEVER COMPARISON: None FINDINGS: TUBES and LINES: None. LUNGS: Lungs are well inflated. Mild patchy opacity in the left lower lung. No evidence of pulmonary edema. PLEURA: No pleural effusion or pneumothorax. HEART AND MEDIASTINUM: The cardiomediastinal silhouette is unremarkable. BONES AND SOFT TISSUES: No acute osseous abnormality. Partially seen cervical spine fixation hardware. UPPER ABDOMEN: No free air under the diaphragm. IMPRESSION: Mild patchy left basilar opacity more likely represents atelectasis than infection. No evidence of lobar consolidation. Signed by: Dr. Asia Wall MD on 11/08/2019 6:23 PM
[2019-11-08 18:27] LABS: BACTERIA,URINE RARE /HPF; EPITHELIAL CELLS,URINE FEW /LPF; RBC,URINE 0-5 /HPF (0-5); WBC,URINE (MAN) 0-5 /HPF (0-5)
--- NOTE | 2019-11-08 18:29 | Diagnostic Imaging Report ---
Exam: Left knee radiographs-3 views History: Knee pain. Comparison: None. Findings/Impression: No evidence of acute fracture, malalignment, or soft tissue abnormality. No suprapatellar joint effusion. Signed by: Dr. Asia Wall MD on 11/08/2019 6:25 PM
[2019-11-08 18:59] LABS: BODY FLUID APPEARANCE SL.CLOUDY; BODY FLUID COLOR STRAW
[2019-11-08 19:02] LABS: BODY FLUID TYPE ASPIRATE; RBC,BODY FLUID 245 cells/uL; WBC,BODY FLUID 17 cells/uL
[2019-11-08 19:13] LABS: ERYTHROCYTE SEDIMENTATION RATE 16 mm/hr (0-20)
== END 2019-11-08 20:25 | disposition home or self-care (01) ==
LOC: ER 15:44
DX: M25.562 Pain in left knee (principal); M25.462 Effusion, left knee; E11.9 Type 2 diabetes mellitus without complications; E78.5 Hyperlipidemia, unspecified; E03.9 Hypothyroidism, unspecified; F32.9 Major depressive disorder, single episode, unspecified
CPT/HCPCS: 20610; 36415; 71045; 73562; 80053; 81001; 85025; 85610; 85651; 85730; 86140; 87040; 87086; 87205; 89051; 99284; J2001; J7030

== ENCOUNTER 2020-05-17 18:22 | Emergency (ER) | payer OTHER ==
[~2020-05-17] VITALS: Ht 157.5 cm; Wt 63.5 kg
[2020-05-17 20:06] LABS: BASOPHILS # (AUTO) 0.1 (0.0-0.1); BASOPHILS % 0.6 % (0.0-1.0); EOSINOPHILS # (AUTO) 0.1 (0.0-0.4); EOSINOPHILS % 0.9 % (0.0-6.0); HEMATOCRIT 41.2 % (34.2-44.1); HEMOGLOBIN 14.5 g/dL (12.0-16.0); LYMPHOCYTES # (AUTO) 2.3 (1.0-3.2); LYMPHOCYTES % 27.2 % (18.0-39.1); MEAN CORPUSCULAR HEMOGLOBIN 31.3 pg (28-32); MEAN CORPUSCULAR HGB CONC 35.2 g/dL (31-35); MEAN CORPUSCULAR VOLUME 88.8 fL (81-99); MONOCYTES # (AUTO) 0.5 (0.2-0.8); MONOCYTES % 6.3 % (4.4-11.3); NEUTROPHILS # (AUTO) 5.4 (2.1-6.9); NEUTROPHILS % 64.4 % (38.7-80.0); PLATELET COUNT 227 x10e3/uL (140-360); RED BLOOD COUNT 4.64 x10e6/uL (3.6-5.1); RED CELL DISTRIBUTION WIDTH 12.7 % (11.7-14.4)
[2020-05-17 20:28] LABS: ALANINE AMINOTRANSFERASE 28 IU/L (0-55); ALBUMIN 4.9 g/dL (3.5-5.0); ALBUMIN/GLOBULIN RATIO 1.3 (0.8-2.0); ALKALINE PHOSPHATASE 147 IU/L (40-150); ANION GAP 15.4 mmol/L (8-16); BLOOD UREA NITROGEN 15 mg/dL (7-26); BUN/CREATININE RATIO 15 (6-25); CALCIUM 10.6 mg/dL (8.4-10.2); CARBON DIOXIDE 22 mmol/L (22-29); CHLORIDE 103 mmol/L (98-107); CREATINE KINASE 199 IU/L (29-168); CREATININE, SERUM 1.02 mg/dL (0.57-1.11); EST GLOMERULAR FILTRATION RATE 56 ML/MIN (60-); GLUCOSE 93 mg/dL (74-118); POTASSIUM 3.4 mmol/L (3.5-5.1); SODIUM 137 mmol/L (136-145)
[2020-05-17 20:30] LABS: CLARITY,URINE CLEAR (CLEAR); COLOR,URINE YELLOW (YELLOW)
[2020-05-17 20:31] LABS: BILIRUBIN,URINE NEGATIVE (NEGATIVE); KETONES,URINE NEGATIVE (NEGATIVE); LEUKOCYTE ESTERASE ,URINE NEGATIVE (NEGATIVE); NITRITE,URINE NEGATIVE (NEGATIVE); PROTEIN,URINE DIPSTICK 1+ (NEGATIVE); URINE UROBILINOGEN 0.2 mg/dL (0.2 - 1)
[2020-05-17 20:39] LABS: BACTERIA,URINE MODERATE /HPF; EPITHELIAL CELLS,URINE FEW /LPF; MUCUS,URINE MANY (RARE)
[2020-05-17] MEDS ORDERED: KEFLEX500 MG PO (21:23)
== END 2020-05-17 21:30 | disposition home or self-care (01) ==
LOC: ER 18:34
DX: R10.13 Epigastric pain (principal); R51.9 Headache, unspecified; R11.0 Nausea; E11.9 Type 2 diabetes mellitus without complications; E03.9 Hypothyroidism, unspecified; E78.5 Hyperlipidemia, unspecified; F32.9 Major depressive disorder, single episode, unspecified
CPT/HCPCS: 36415; 80053; 81001; 82550; 82553; 82948; 83690; 84484; 85025; 99283

== ENCOUNTER 2020-05-19 12:02 | Emergency (ER) | payer OTHER ==
[~2020-05-19] VITALS: Ht 157.5 cm; Wt 63.5 kg
[~2020-05-19 12:02] MED LIST changes: +KEFLEX500 MG PO
[2020-05-19] MEDS ORDERED: LMX 45 G1 TOP (13:20)
== END 2020-05-19 13:40 | disposition home or self-care (01) ==
LOC: ER 12:50
DX: N39.0 Urinary tract infection, site not specified (principal); R10.2 Pelvic and perineal pain; E11.9 Type 2 diabetes mellitus without complications; E78.5 Hyperlipidemia, unspecified; E03.9 Hypothyroidism, unspecified; E78.00 Pure hypercholesterolemia, unspecified; F32.9 Major depressive disorder, single episode, unspecified; G25.81 Restless legs syndrome
CPT/HCPCS: 99283

== ENCOUNTER 2020-11-12 10:11 | Emergency (ER) | payer OTHER ==
[~2020-11-12] VITALS: Ht 157.5 cm; Wt 63.5 kg
[~2020-11-12 10:11] MED LIST changes: +LMX 45 G1 TOP
[2020-11-12] MEDS ORDERED: SODIUM CHLORIDE 0.9% 1000ML 1,000 ML IV STA (10:21)
[2020-11-12] MEDS ORDERED: PANTOPRAZOLE 40 MG 10ML VIAL IV STA (10:21)
[2020-11-12] MEDS ORDERED: ONDANSETRON HCL INJ 2MG/ML 2ML 2 MG/ML VIAL IV STA (10:21)
[2020-11-12] MEDS ORDERED: MORPHINE SULFATE INJ 4 MG/ML INJ 1ML IV STA (10:21)
[2020-11-12 10:41] LABS: BASOPHILS % 0.8 % (0.0-1.0); EOSINOPHILS # (AUTO) 0.1 (0.0-0.4); EOSINOPHILS % 1.6 % (0.0-6.0); HEMATOCRIT 40.1 % (34.2-44.1); HEMOGLOBIN 13.9 g/dL (12.0-16.0); LYMPHOCYTES # (AUTO) 1.6 (1.0-3.2); LYMPHOCYTES % 31.3 % (18.0-39.1); MEAN CORPUSCULAR HEMOGLOBIN 30.6 pg (28-32); MEAN CORPUSCULAR HGB CONC 34.7 g/dL (31-35); MEAN CORPUSCULAR VOLUME 88.3 fL (81-99); MONOCYTES # (AUTO) 0.2 (0.2-0.8); MONOCYTES % 4.3 % (4.4-11.3); NEUTROPHILS # (AUTO) 3.1 (2.1-6.9); NEUTROPHILS % 61.6 % (38.7-80.0); PLATELET COUNT 187 x10e3/uL (140-360); RED BLOOD COUNT 4.54 x10e6/uL (3.6-5.1); RED CELL DISTRIBUTION WIDTH 13.2 % (11.7-14.4)
[2020-11-12 11:18] LABS: ALANINE AMINOTRANSFERASE 32 IU/L (0-55); ALBUMIN 3.9 g/dL (3.5-5.0); ALBUMIN/GLOBULIN RATIO 1.1 (0.8-2.0); ALKALINE PHOSPHATASE 119 IU/L (40-150); AMYLASE 147 U/L (25-125); BLOOD UREA NITROGEN 16 mg/dL (7-26); BUN/CREATININE RATIO 16 (6-25); CALCIUM 9.3 mg/dL (8.4-10.2); CARBON DIOXIDE 24 mmol/L (22-29); CHLORIDE 102 mmol/L (98-107); CREATINE KINASE 164 IU/L (29-168); EST GLOMERULAR FILTRATION RATE 57 ML/MIN (60-); LIPASE 40 U/L (8-78); MAGNESIUM 1.5 MG/DL (1.3-2.1); SODIUM 139 mmol/L (136-145)
[2020-11-12 11:20] LABS: CHOL/HDL RATIO 10.3 (3.0-3.6); CHOLESTEROL 442 MD/DL (0-199); HDL CHOLESTEROL 43 MG/DL (40-60); TRIGLYCERIDES 663 MG/DL (0-149)
[2020-11-12 11:23] LABS: GLUCOSE 461 mg/dL (74-118)
[2020-11-12] MEDS ORDERED: IOPAMIDOL 370 MG/ML 200 ML INFUS..BTL INJ ONE (11:29)
[2020-11-12] MEDS ORDERED: SODIUM CHLORIDE 0.9% 50ML 50 ML ONE (11:29)
[2020-11-12 12:08] LABS: CLARITY,URINE CLEAR (CLEAR); COLOR,URINE YELLOW (YELLOW); KETONES,URINE NEGATIVE (NEGATIVE); LEUKOCYTE ESTERASE ,URINE NEGATIVE (NEGATIVE); NITRITE,URINE NEGATIVE (NEGATIVE); PROTEIN,URINE DIPSTICK NEGATIVE (NEGATIVE); URINE UROBILINOGEN 0.2 mg/dL (0.2 - 1)
[2020-11-12] MEDS ORDERED: TRICOR145 MG PO (12:22)
[2020-11-12] MEDS ORDERED: PANTOPRAZOLE SO40 MG PO (12:22)
[2020-11-12] MEDS ORDERED: PROVENTIL HFA6.7 GM INH (12:22)
[2020-11-12] MEDS ORDERED: HYDROCODON-ACE1 EAC9 PO (12:22)
[2020-11-12] MEDS ORDERED: SYNTHROID50 MCG PO (12:22)
[2020-11-12] MEDS ORDERED: HUMALOG100 UNIT/3 SQ (12:22)
[2020-11-12] MEDS ORDERED: LASIX20 MG PO (12:22)
[2020-11-12] MEDS ORDERED: ZONEGRAN100 MG PO (12:22)
[2020-11-12] MEDS ORDERED: COREG6.25 MG PO (12:22)
[2020-11-12] MEDS ORDERED: SYMBICORT 80-10.2 GM INH (12:22)
[2020-11-12 12:29] LABS: EPITHELIAL CELLS,URINE FEW /LPF; RBC,URINE 0-5 /HPF (0-5); WBC,URINE (MAN) 0-5 /HPF (0-5)
[2020-11-12] MEDS ORDERED: INSULIN LISPRO 100 UNIT/1 ML 3ML VIAL SQ ONE (12:30)
[2020-11-12 13:14] VITALS: BP 126/64
== END 2020-11-12 13:16 | disposition home or self-care (01) ==
LOC: ER 10:22
DX: R42 Dizziness and giddiness (principal); R10.9 Unspecified abdominal pain; K29.70 Gastritis, unspecified, without bleeding; E78.1 Pure hyperglyceridemia; Z20.822 Contact with and (suspected) exposure to COVID-19
CPT/HCPCS: 36415; 71045; 74177; 80053; 80061; 81001; 82150; 82550; 82553; 83690; 83735; 84484; 85025; 93005; 99284; C9113; J2270; J2405; J7030; Q9967; U0002

== ENCOUNTER → 2023-07-16 | Day surgery (SDC) | payer OTHER ==
[2023-07-09 11:17] LABS: BASOPHILS % 0.7 % (0.0-1.0); EOSINOPHILS # (AUTO) 0.1 (0.0-0.4); EOSINOPHILS % 1.4 % (0.0-6.0); HEMATOCRIT 42.5 % (34.2-44.1); HEMOGLOBIN 14.2 g/dL (12.0-16.0); LYMPHOCYTES # (AUTO) 1.4 (1.0-3.2); LYMPHOCYTES % 23.6 % (18.0-39.1); MEAN CORPUSCULAR HEMOGLOBIN 29.1 pg (28-32); MEAN CORPUSCULAR HGB CONC 33.4 g/dL (31-35); MEAN CORPUSCULAR VOLUME 87.1 fL (81-99); MONOCYTES # (AUTO) 0.4 (0.2-0.8); MONOCYTES % 6.5 % (4.4-11.3); NEUTROPHILS # (AUTO) 3.8 (2.1-6.9); NEUTROPHILS % 67.3 % (38.7-80.0); PLATELET COUNT 195 x10e3/uL (140-360); RED BLOOD COUNT 4.88 x10e6/uL (3.6-5.1); RED CELL DISTRIBUTION WIDTH 13.7 % (11.7-14.4); WHITE BLOOD COUNT 5.71 x10e3/uL (4.8-10.8)
[2023-07-09 11:41] LABS: ANION GAP 12.1 mmol/L (8-16); CALCIUM 10.4 mg/dL (8.4-10.2); CREATININE, SERUM 0.77 mg/dL (0.57-1.11); POTASSIUM 4.1 mmol/L (3.5-5.1)
[~2023-07-16] MED LIST changes: +ACETAMINOPHEN 1000 MG/100 ML IV ONE; +ASPIRIN81 MG PO; +AZITHROMYCIN250 MG PO; +COREG6.25 MG PO; +DIFLUCAN100 MG PO; +FAMOTIDINE 20 MG/2 ML VIAL IV ONE; +HUMALOG100 UNIT/3; +HYDROCODON-ACE1 EAC9 PO; +LASIX20 MG PO; +LEVOFLOXACIN250 MG PO; +LIDOCAINE HCL 2% LOCAL INJ 5 ML SDV VIAL INJ ONE; +MUCINEX DM ER1 EACH PO; +PANTOPRAZOLE SO40 MG PO; +PAXLOVID 300-11 EACH PO; +PREDNISONE20 MG PO; +PROPOFOL IV EMULSION 10 MG/ML 20 ML VIAL ONE; +PROVENTIL HFA6.7 GM INH; +ROCURONIUM BROMIDE 10 MG/ML 5ML VIAL IV ONE; +SEVOFLURANE INHAL SOLN 250 ML PEN BTL ONE; +SYMBICORT 80-10.2 GM INH; +SYNTHROID50 MCG PO; +TRICOR145 MG PO; +VENTOLIN HFA18 GM INH; +ZONEGRAN100 MG PO
[2023-07-16] MEDS: LACTATED RINGER'S 1,000 ML ONE (06:05)
[2023-07-16] MEDS: FENTANYL CITRATE/PF 100MCG/2 ML INJ ONE (07:57)
[2023-07-16] MEDS: HYDROCODONE/APAP 7.5MG-325MG 1 EA TAB ONE (08:09)
[2023-07-16 09:15] VITALS: BP 142/78; PULSE 80; RESP 16; O2SAT 99
== END | disposition home or self-care (01) ==
LOC: OR 05:00
PROVIDERS: ATTEND Specialist
DX: M65.331 Trigger finger, right middle finger (principal); D64.9 Anemia, unspecified; I25.10 Atherosclerotic heart disease of native coronary artery without angina pectoris; I25.2 Old myocardial infarction; I50.9 Heart failure, unspecified; E78.5 Hyperlipidemia, unspecified; J45.909 Unspecified asthma, uncomplicated; E03.9 Hypothyroidism, unspecified; E11.9 Type 2 diabetes mellitus without complications; F41.9 Anxiety disorder, unspecified; F31.9 Bipolar disorder, unspecified; Z88.6 Allergy status to analgesic agent; Z01.812 Encounter for preprocedural laboratory examination; Z01.818 Encounter for other preprocedural examination; Z79.82 Long term (current) use of aspirin; Z79.4 Long term (current) use of insulin; Z79.899 Other long term (current) drug therapy; Z95.5 Presence of coronary angioplasty implant and graft; Z86.73 Personal history of transient ischemic attack (TIA), and cerebral infarction without residual deficits; Z86.718 Personal history of other venous thrombosis and embolism
CPT/HCPCS: 26055; 36415 ×2; 71046; 80048; 82948; 85025; J0690; J3010; J7121; J2001

== ENCOUNTER 2024-01-01 12:58 | Emergency (ER) | payer OTHER ==
[~2024-01-01] VITALS: Ht 157.5 cm; Wt 63.5 kg
[~2024-01-01 12:58] MED LIST changes: -ACETAMINOPHEN 1000 MG/100 ML IV ONE; -FAMOTIDINE 20 MG/2 ML VIAL IV ONE; -LIDOCAINE HCL 2% LOCAL INJ 5 ML SDV VIAL INJ ONE; +MECLIZINE HCL25 MG PO; +ONDANSETRON ODT4 MG PO; -PROPOFOL IV EMULSION 10 MG/ML 20 ML VIAL ONE; -ROCURONIUM BROMIDE 10 MG/ML 5ML VIAL IV ONE; -SEVOFLURANE INHAL SOLN 250 ML PEN BTL ONE
[2024-01-01 13:17] VITALS: TEMP 98.6
[2024-01-01] MEDS: HYDROCODONE/APAP 5MG-325MG TAB PO ONE (14:08)
[2024-01-01] MEDS ORDERED: DICLOFENAC POTA50 MG PO (14:35)
[2024-01-01 14:55] VITALS: PULSE 82; RESP 16; O2SAT 99
== END 2024-01-01 14:51 | disposition home or self-care (01) ==
LOC: ER 13:11
DX: M75.42 Impingement syndrome of left shoulder (principal); E11.9 Type 2 diabetes mellitus without complications; E78.5 Hyperlipidemia, unspecified; E03.9 Hypothyroidism, unspecified; J45.909 Unspecified asthma, uncomplicated; G25.81 Restless legs syndrome; I25.2 Old myocardial infarction; Z86.73 Personal history of transient ischemic attack (TIA), and cerebral infarction without residual deficits
CPT/HCPCS: 99283

== ENCOUNTER 2024-02-01 10:18 | Emergency (ER) | payer OTHER ==
[~2024-02-01] VITALS: Ht 157.5 cm; Wt 64.0 kg
[~2024-02-01 10:18] MED LIST changes: +DICLOFENAC POTA50 MG PO
[2024-02-01 10:20] VITALS: PULSE 99; RESP 16; TEMP 99.7; O2SAT 100
[2024-02-01] MEDS ORDERED: MUCINEX DM ER1 EACH PO (10:42)
[2024-02-01] MEDS ORDERED: VENTOLIN HFA18 GM INH (10:42)
[2024-02-01 11:25] LABS: INFLUENZAE A&B ANTIGEN (RAPID) NEGATIVE (NEGATIVE)
[2024-02-01 11:26] LABS: RESPIRATORY SYNC. VIRUS NEGATIVE (NEGATIVE)
[2024-02-01] MEDS: DEXAMETHASONE 4 MG TAB PO STA (11:52)
== END 2024-02-01 12:00 | disposition home or self-care (01) ==
LOC: ER 10:24
DX: R50.9 Fever, unspecified (principal); U07.1 COVID-19; R05.9 Cough, unspecified; R51.9 Headache, unspecified; E78.5 Hyperlipidemia, unspecified; E11.9 Type 2 diabetes mellitus without complications; Z86.73 Personal history of transient ischemic attack (TIA), and cerebral infarction without residual deficits; I25.2 Old myocardial infarction; G25.81 Restless legs syndrome
CPT/HCPCS: 71045; 87400; 87420; 99283; J8540; U0002

== ENCOUNTER 2024-05-15 00:16 | Emergency (ER) | payer OTHER ==
[~2024-05-15] VITALS: Ht 157.5 cm; Wt 68.5 kg
[2024-05-15 00:30] VITALS: RESP 18; TEMP 98.3
[2024-05-15 01:07] LABS: BASOPHILS % 0.4 % (0.0-1.0); EOSINOPHILS # (AUTO) 0.2 (0.0-0.4); HEMATOCRIT 36.7 % (34.2-44.1); HEMOGLOBIN 12.3 g/dL (12.0-16.0); LYMPHOCYTES # (AUTO) 2.5 (1.0-3.2); LYMPHOCYTES % 33.4 % (18.0-39.1); MEAN CORPUSCULAR HGB CONC 33.5 g/dL (31-35); MEAN CORPUSCULAR VOLUME 89.5 fL (81-99); MONOCYTES # (AUTO) 0.5 (0.2-0.8); MONOCYTES % 6.8 % (4.4-11.3); NEUTROPHILS # (AUTO) 4.2 (2.1-6.9); NEUTROPHILS % 56.9 % (38.7-80.0); PLATELET COUNT 230 x10e3/uL (140-360); RED CELL DISTRIBUTION WIDTH 11.5 % (11.7-14.4); WHITE BLOOD COUNT 7.46 x10e3/uL (4.8-10.8)
[2024-05-15 01:11] LABS: ANION GAP 12.8 mmol/L (8-16); CALCIUM 9.6 mg/dL (8.4-10.2); CREATININE, SERUM 0.77 mg/dL (0.57-1.11); POTASSIUM 3.8 mmol/L (3.5-5.1)
[2024-05-15 02:12] LABS: INFLUENZA A AG NEGATIVE (NEGATIVE); INFLUENZA B AG NEGATIVE (NEGATIVE)
[2024-05-15 02:13] LABS: CORONAVIRUS COVID-19 AG NEGATIVE (NEGATIVE)
[2024-05-15] MEDS ORDERED: AMOX TR-K CLV1 EAC2 PO (02:35)
[2024-05-15] MEDS: KETOROLAC TROMETHAMINE 30 MG/ML VIAL IV STA (02:41)
[2024-05-15 03:20] VITALS: PULSE 72
[2024-05-15 03:38] VITALS: BP 110/68; O2SAT 97
== END 2024-05-15 03:33 | disposition home or self-care (01) ==
LOC: ER 00:21
DX: H92.02 Otalgia, left ear (principal); J03.90 Acute tonsillitis, unspecified; E11.65 Type 2 diabetes mellitus with hyperglycemia; E78.5 Hyperlipidemia, unspecified; J45.909 Unspecified asthma, uncomplicated; F32.A Depression, unspecified; I25.2 Old myocardial infarction; Z86.73 Personal history of transient ischemic attack (TIA), and cerebral infarction without residual deficits
CPT/HCPCS: 36415; 70490; 80048; 83518; 85025; 87070; 87428; 99284; J1885

== ENCOUNTER 2024-10-26 16:07 | Emergency (ER) | payer MEDICAID ==
[~2024-10-26] VITALS: Ht 157.5 cm; Wt 68.5 kg
[~2024-10-26 16:07] MED LIST changes: +AMOX TR-K CLV1 EAC2 PO
[2024-10-26 16:22] VITALS: TEMP 97.6
[2024-10-26 18:16] LABS: CORONAVIRUS COVID-19 AG NEGATIVE (NEGATIVE); INFLUENZA A AG NEGATIVE (NEGATIVE); INFLUENZA B AG NEGATIVE (NEGATIVE)
[2024-10-26 21:00] VITALS: PULSE 81; RESP 18
[2024-10-26] MEDS ORDERED: MEDROL4 M2 PO (21:32)
[2024-10-26 21:53] VITALS: BP 119/84; PULSE 76; RESP 18; TEMP 98.3; O2SAT 98
== END 2024-10-26 21:45 | disposition home or self-care (01) ==
LOC: ER 18:08
DX: R05.9 Cough, unspecified (principal); Z91.09 Other allergy status, other than to drugs and biological substances; E11.9 Type 2 diabetes mellitus without complications; E78.5 Hyperlipidemia, unspecified; E03.9 Hypothyroidism, unspecified; J45.909 Unspecified asthma, uncomplicated; F32.A Depression, unspecified; G25.81 Restless legs syndrome; Z11.52 Encounter for screening for COVID-19
CPT/HCPCS: 71045; 99284

== ENCOUNTER 2024-12-11 15:02 | Inpatient (IN) | payer MEDICAID ==
[~2024-12-11] VITALS: Ht 157.5 cm; Wt 68.5 kg
[~2024-12-11 15:02] MED LIST changes: +MEDROL4 M2 PO
[2024-12-11 16:08] LABS: BASOPHILS % 0.6 % (0.0-1.0); EOSINOPHILS % 1.1 % (0.0-6.0); LYMPHOCYTES % 32.5 % (18.0-39.1); MONOCYTES % 8.3 % (4.4-11.3); NEUTROPHILS % 56.9 % (38.7-80.0); RED CELL DISTRIBUTION WIDTH 12.6 % (11.7-14.4)
[2024-12-11 16:32] LABS: EST GLOMERULAR FILTRATION RATE 89.0 ML/MIN (>=60)
[2024-12-11 16:48] LABS: LEUKOCYTE ESTERASE ,URINE NEGATIVE (NEGATIVE); PROTEIN,URINE DIPSTICK NEGATIVE (NEGATIVE)
[2024-12-11 16:49] LABS: URINE UROBILINOGEN 0.2 mg/dL (0.2 - 1)
[2024-12-11 16:49] LABS: INR 0.9
[2024-12-11] MEDS: ASPIRIN 81 MG CHEW TAB PO ONE (16:54)
[2024-12-11 16:55] LABS: AMPHETAMINES SCREEN,URINE NEGATIVE (NEGATIVE); COCAINE SCREEN,URINE NEGATIVE (NEGATIVE); OPIATES SCREEN,URINE NEGATIVE (NEGATIVE)
[2024-12-11 16:57] LABS: CANNABINOIDS SCREEN,URINE NEGATIVE (NEGATIVE); METHADONE SCREEN, URINE NEGATIVE (NEGATIVE)
[2024-12-11 17:04] LABS: WBC,URINE (MAN) 0-5 /HPF (0-5)
[2024-12-11 17:05] LABS: EPITHELIAL CELLS,URINE FEW /LPF
[2024-12-11 19:54] VITALS: PULSE 82; RESP 18; TEMP 98.6
[2024-12-11 21:00] VITALS: BP 113/58; PULSE 81; RESP 18; TEMP 97.6; O2SAT 100
[2024-12-11] MEDS: CLOPIDOGREL BISULFATE 300 MG TAB-DO NOT STOCK PO ONE (21:20)
[2024-12-11] MEDS: CLOPIDOGREL BISULFATE 75 MG TAB ONE ×2 (21:21→21:22)
[2024-12-11 22:57] VITALS: BP 113/58; PULSE 81; RESP 18; TEMP 97.6; O2SAT 100
[2024-12-11] MEDS ORDERED: LEVOTHYROXINE25 MCG PO (23:17)
[2024-12-11] MEDS ORDERED: CETIRIZINE HCL10 MG PO (23:17)
[2024-12-11] MEDS ORDERED: LEVOTHYROXINE200 MCG PO (23:17)
[2024-12-11] MEDS ORDERED: NEURONTIN300 MG PO (23:17)
[2024-12-11] MEDS ORDERED: AMITRIPTYLINE H10 MG PO (23:17)
[2024-12-11] MEDS ORDERED: HUMULIN R500 UNIT/1 SQ (23:17)
[2024-12-11] MEDS ORDERED: PANTOPRAZOLE SO40 MG PO (23:17)
[2024-12-12] VITALS (9 sets, daily range): BP systolic 107–115; BP diastolic 54–68; PULSE 81–95; RESP 16–18; TEMP 97.6–98.2; O2SAT 97–100
[2024-12-12] MEDS ORDERED: HYDRALAZINE HCL 20 MG/ML VIAL IV PRN (01:15)
[2024-12-12] MEDS ORDERED: MELATONIN 3 MG TAB PO PRN (01:15)
[2024-12-12] MEDS ORDERED: GUAIFENESIN/DEXTROMETHORPHAN LIQD 5 ML UDC PO PRN (01:15)
[2024-12-12] MEDS ORDERED: ACETAMINOPHEN 325 MG TAB PO PRN (01:15)
[2024-12-12] MEDS ORDERED: DEXTROSE 50% SYRINGE 50 ML IV PRN (01:15)
[2024-12-12 05:36] LABS: BASOPHILS % 0.4 % (0.0-1.0); EOSINOPHILS % 1.9 % (0.0-6.0); LYMPHOCYTES % 38.1 % (18.0-39.1); MONOCYTES % 8.5 % (4.4-11.3); NEUTROPHILS % 50.7 % (38.7-80.0); RED CELL DISTRIBUTION WIDTH 12.4 % (11.7-14.4)
[2024-12-12 06:06] LABS: CHOL/HDL RATIO 5.4 (3.0-3.6); EST GLOMERULAR FILTRATION RATE 95.0 ML/MIN (>=60); LDL CHOLESTEROL 153.0 MG/DL (60-130)
[2024-12-12] MEDS: LEVOTHYROXINE SODIUM 125 MCG TAB PO SCH (06:24)
[2024-12-12] MEDS: BUDESONIDE 0.5MG/2 ML NEB INH SCH (07:38)
[2024-12-12] MEDS: INSULIN REGULAR, HUMAN 100 UNIT/1 ML SQ SCH (08:47)
[2024-12-12] MEDS: DOCUSATE SODIUM 100 MG CAP PO SCH (08:48)
[2024-12-12] MEDS: CLOPIDOGREL BISULFATE 75 MG TAB PO SCH (08:49)
[2024-12-12] MEDS: MULTIVITAMINS/MINERALS TAB PO SCH (08:49)
[2024-12-12] MEDS: PANTOPRAZOLE SOD 40 MG TABEC PO SCH (08:49)
[2024-12-12] MEDS: ASPIRIN 81 MG ENTERIC COATED PO SCH (08:49)
[2024-12-12] MEDS: FENOFIBRATE 145 MG TAB PO SCH (08:49)
[2024-12-12] MEDS: CARVEDILOL 3.125 MG TAB PO SCH (08:49)
[2024-12-12] MEDS ORDERED: TRAMADOL HCL 50 MG TAB PO PRN (11:15)
[2024-12-12] MEDS: SODIUM CHLORIDE 0.9% 1000ML 1,000 ML IV SCH (11:57)
[2024-12-12] MEDS: POTASSIUM CHLORIDE 20 MEQ TAB CR PO ONE (11:57)
[2024-12-12] MEDS: ENOXAPARIN SOD INJ 40 MG/0.4 ML SYR SC SCH (17:26)
[2024-12-12] MEDS: INSULIN GLARGINE 100 UNITS/ML VIAL SQ SCH (22:01)
[2024-12-12] MEDS: GABAPENTIN 100 MG CAP PO SCH (22:04)
[2024-12-12] MEDS: ATORVASTATIN 40 MG TAB PO SCH (22:04)
[2024-12-12] MEDS: AMITRIPTYLINE HCL 10 MG TAB PO SCH (22:04)
[2024-12-13] VITALS (8 sets, daily range): BP systolic 93–112; BP diastolic 56–62; PULSE 73–92; RESP 16–20; TEMP 97.7–98.4; O2SAT 95–100
[2024-12-13] MEDS: POLYETHYLENE GLYCOL 3350 17 GM PACK PO PRN (15:44)
[2024-12-13] MEDS: ONDANSETRON HCL INJ 2MG/ML 2ML 2 MG/ML VIAL IV PRN (15:44)
[2024-12-13] MEDS: ALBUTEROL SULF 0.083% NEB SOLN 3 ML NEB NEB PRN (19:18)
[2024-12-13] MEDS: INSULIN GLARGINE 100 UNITS/ML VIAL SQ SCH (21:25)
[2024-12-14] VITALS (8 sets, daily range): BP systolic 96–105; BP diastolic 50–68; PULSE 77–91; RESP 16–18; TEMP 98.1–98.2; O2SAT 95–100
[2024-12-14] MEDS: LEVOTHYROXINE SODIUM 125 MCG TAB PO SCH (06:45)
[2024-12-15] VITALS (8 sets, daily range): BP systolic 92–115; BP diastolic 53–68; PULSE 79–96; RESP 18–22; TEMP 97.9–98.6; O2SAT 96–100
[2024-12-15] MEDS ORDERED: LEVOTHYROXINE SODIUM 125 MCG TAB PO SCH (06:30)
[2024-12-16] VITALS (8 sets, daily range): BP systolic 101–111; BP diastolic 55–89; PULSE 82–92; RESP 16–20; TEMP 97.8–98.6; O2SAT 95–100
[2024-12-16] MEDS ORDERED: ULTRAM 50MG50 MG PO (16:10)
[2024-12-16] MEDS ORDERED: MIRALAX17 GM PO (16:10)
[2024-12-16] MEDS ORDERED: PLAVIX75 MG PO (16:10)
[2024-12-16] MEDS ORDERED: Docusate Sodium PO (16:10)
[2024-12-17] VITALS: BP 94/55; PULSE 93; RESP 20; TEMP 98.6; O2SAT 99
[2024-12-17 04:00] VITALS: BP 94/54; PULSE 84; RESP 20; TEMP 98; O2SAT 97
[2024-12-17 07:57] VITALS: BP 100/51; PULSE 85; RESP 18; TEMP 98; O2SAT 100
[2024-12-17 08:12] LABS: BASOPHILS % 0.6 % (0.0-1.0); EOSINOPHILS % 1.5 % (0.0-6.0); LYMPHOCYTES % 32.5 % (18.0-39.1); MONOCYTES % 11.3 % (4.4-11.3); NEUTROPHILS % 53.5 % (38.7-80.0); RED CELL DISTRIBUTION WIDTH 12.2 % (11.7-14.4)
[2024-12-17 08:52] LABS: EST GLOMERULAR FILTRATION RATE 76.0 ML/MIN (>=60)
[2024-12-17 09:24] VITALS: PULSE 85; RESP 18; O2SAT 100
[2024-12-17 12:13] VITALS: BP 115/63; PULSE 103; RESP 18; TEMP 98.7; O2SAT 100
[2024-12-17 15:56] VITALS: BP 106/58; PULSE 86; RESP 18; TEMP 98.2; O2SAT 100
== END 2024-12-17 17:30 | disposition home or self-care (01) | DRG 69 ==
LOC: ER 15:17 → ERHOLD 18:45 → MED/SURG 20:06
PROVIDERS: ADMIT Internal Medicine Critical Care Medicine; ATTEND Internal Medicine Critical Care Medicine
DX: G45.9 Transient cerebral ischemic attack, unspecified (principal); G81.94 Hemiplegia, unspecified affecting left nondominant side; I69.354 Hemiplegia and hemiparesis following cerebral infarction affecting left non-dominant side; R47.01 Aphasia; E11.65 Type 2 diabetes mellitus with hyperglycemia; I25.10 Atherosclerotic heart disease of native coronary artery without angina pectoris; E03.9 Hypothyroidism, unspecified; E78.5 Hyperlipidemia, unspecified; H53.47 Heteronymous bilateral field defects; G25.81 Restless legs syndrome; F32.9 Major depressive disorder, single episode, unspecified; R29.702 NIHSS score 2; R07.89 Other chest pain; J45.909 Unspecified asthma, uncomplicated; Z79.4 Long term (current) use of insulin; Z79.52 Long term (current) use of systemic steroids; Z79.890 Hormone replacement therapy; Z79.51 Long term (current) use of inhaled steroids; Z98.61 Coronary angioplasty status; I25.2 Old myocardial infarction; Z90.49 Acquired absence of other specified parts of digestive tract; Z91.048 Other nonmedicinal substance allergy status; Z87.891 Personal history of nicotine dependence
CPT/HCPCS: 36415; 70496; 70498; 70551; 71045; 80048; 80053; 80061; 80307; 81001; 82550; 82948; 83735; 83880; 84484; 85025; 85610; 85730; 92523; 93005; 93306; 94640; 94799; 99284; J1650; J1815; J2405; J2470; J7030